=== PATIENT | male | born 1950 | race Caucasian/White ===

== ENCOUNTER 2016-06-23 17:27 | Emergency (ER) | END 2016-06-23 19:00 | disposition home or self-care (01) | DX: N18.6 End stage renal disease (principal); R40.2252 Coma scale, best verbal response, oriented, at arrival to emergency department; I12.0 Hypertensive chronic kidney disease with stage 5 chronic kidney disease or end stage renal disease; R40.2362 Coma scale, best motor response, obeys commands, at arrival to emergency department; R40.2142 Coma scale, eyes open, spontaneous, at arrival to emergency department; Y82.8 Other medical devices associated with adverse incidents; Z79.82 Long term (current) use of aspirin; Z99.2 Dependence on renal dialysis; Z87.891 Personal history of nicotine dependence ==

== ENCOUNTER 2017-11-13 13:26 | Emergency (ER) | END 2017-11-13 14:29 | disposition home or self-care (01) ==

== ENCOUNTER 2018-08-23 09:40 | Inpatient (IN) | payer MEDICARE, OTHER ==
[~2018-08-23] VITALS: Ht 160 cm; Wt 80.3 kg
[2018-08-23] VITALS (20 sets, daily range): BP systolic 100–159; BP diastolic 48–77; PULSE 72–89; RESP 18–20; Ht 160 cm; Wt 80.3 kg
[~2018-08-23 09:40] MED LIST: AMLO-147 PO; ASPI325T32 PO; ATEN-51 PO; BACLOFEN PO; CALC667T PO; CARV25TA79 PO; CLOP75TA27 PO; FAMO-96 PO; FEBU80TA PO; FERR324T6 PO; ISOSORBIDE PO; LOSA50TA14 PO; SIMV20TA2 PO; TRAM50TA2 PO
--- NOTE | 2018-08-23 09:49 | ERD ---
ER Documentation Chief Complaint Chief Complaint SOB HPI 67-year-old male history of hypertension, hyperlipidemia, coronary artery disease and end-stage renal disease on dialysis M/W/F presents the ED by rescue ambulance for evaluation of shortness of breath. Patient awoke this morning with severe shortness of breath and can go to dialysis. Denies chest pain, palpitations or leg swelling. Denies abdominal pain, nausea or vomiting. Kin es headache, focal weakness or numbness. No neck or back pain. Nonproductive cough but no URI symptoms, fevers or chills. ROS All systems reviewed and are negative except as per history of present illness. Medications Home Meds Active Scripts Aspirin* (Aspirin* EC) 81 Mg Tablet.dr, 81 MG PO DAILY, #30 TAB Prov:CHRISTEN CLARK V. [employer] BLACK[employer]ITH 08/26/18 Carvedilol* (Carvedilol*) 12.5 Mg Tablet, 25 MG PO BID, #60 TAB Prov:CHRISTEN CLARK V. [employer] BLACKSMITH 08/26/18 Clopidogrel Bisulfate (Clopidogrel) 75 Mg Tablet, 75 MG PO DAILY, #30 TAB Prov:CHRISTEN CLARK V. [employer] BLACKSMITH 08/26/18 Reported Medications Atorvastatin* (Atorvastatin*) 80 Mg Tablet, 80 MG PO QHS, #30 TAB 08/23/18 Losartan Potassium* (Losartan Potassium*) 50 Mg Tablet, 50 MG PO DAILY, TAB 08/23/18 Cholecalciferol (Vitamin D3) 5,000 Unit Tablet, 5000 UNIT PO DAILY, TAB 08/23/18 Nifedipine* (Nifedipine ER*) 30 Mg Tablet.sa, 30 MG PO DAILY, TAB.SA 08/23/18 Bumetanide* (Bumetanide*) 1 Mg Tablet, 1 MG PO DAILY, TAB 08/23/18 Albuterol Sulfate* (Ventolin HFA*) 18 Gm Hfa.aer.ad, 2 PUFF INHALATION Q4H, #1 INHALER 08/23/18 Discontinued Reported Medications Minoxidil* (Lonitin*) 2.5 Mg Tab, 2.5 MG PO DAILY, TAB 08/23/18 Furosemide* (Furosemide*) 40 Mg Tablet, 40 MG PO DAILY, TAB 08/23/18 Carvedilol* (Carvedilol*) 12.5 Mg Tablet, 12.5 MG PO BID, #60 TAB 08/23/18 Ciprofloxacin Hcl* (Ciprofloxacin Hcl*) 500 Mg Tablet, 500 MG PO DAILY, #14 TAB STARTED ON 08-18-18 FOR 14 DAYS 08/23/18 Allergies Allergies: Coded Allergies: No Known Allergies (Verified Allergy, Unknown, 08/23/18) PMhx/Soc History of Surgery: Yes (PERMACATH PLACEMENT; fistula placement (not used)) Anesthesia Reaction: No Hx Neurological Disorder: No Hx Respiratory Disorders: No Hx Cardiac Disorders: Yes (htn) Hx Psychiatric Problems: No Hx Miscellaneous Medical Probl: Yes (ESRD, DIALYSIS T,T,SAT) Hx Alcohol Use: Yes Hx Substance Use: No Hx Tobacco Use: No (used to smoke x 6 years ago) FmHx Hypertension but no coronary artery disease Physical Exam Vitals Temperature: 97.8. Pulse: 89. Respirations: 32. Blood pressure: 192/79. O2 saturation 80% on room air. Physical Exam Const: Severe distress, anxious. Head: Atraumatic Eyes: Normal Conjunctiva ENT: Normal External Ears, Nose and Mouth. Neck: Full range of motion. JVD. No meningismus. Resp: Breath sounds markedly diminished bilaterally with rales one half both lung arguelles and expiratory wheezing. Cardio: Tachycardic, regular rate and rhythm, no murmurs Abd: Soft, non tender, non distended. No rebound or guarding. Normal bowel sounds Skin: No petechiae or rashes Back: No midline or flank tenderness Ext: No cyanosis, or edema. AV shunt left upper extremity with palpable thrill. Neur: Awake and alert. No facial droop. No focal deficit observed. Psych: Anxious but not depressed. Results 24 hrs Laboratory Tests Test 08/23/18 09:50 White Blood Count 19.6 10^3/ul Red Blood Count 3.27 10^6/ul Hemoglobin 9.9 g/dl Hematocrit 31.5 % Mean Corpuscular Volume 96.3 fl Mean Corpuscular Hemoglobin 30.3 pg Mean Corpuscular Hemoglobin Concent 31.4 g/dl Red Cell Distribution Width 14.3 % Platelet Count 347 10^3/UL Mean Platelet Volume 11.2 fl Immature Granulocytes % 0.800 % Neutrophils % 82.6 % Lymphocytes % 14.1 % Monocytes % 2.1 % Eosinophils % 0.2 % Basophils % 0.2 % Nucleated Red Blood Cells % 0.0 /100WBC Immature Granulocytes # 0.150 10^3/ul Neutrophils # 16.2 10^3/ul Lymphocytes # 2.8 10^3/ul Monocytes # 0.4 10^3/ul Eosinophils # 0.0 10^3/ul Basophils # 0.0 10^3/ul Nucleated Red Blood Cells # 0.0 10^3/ul Sodium Level 138 mmol/L Potassium Level 5.4 mmol/L Chloride Level 98 mmol/L Carbon Dioxide Level 20 mmol/L Anion Gap 20 Blood Urea Nitrogen 62 mg/dl Creatinine 10.22 mg/dl Est Glomerular Filtrat Rate mL/min 5 mL/min Glucose Level 321 mg/dl Calcium Level 8.9 mg/dl Total Bilirubin 0.3 mg/dl Direct Bilirubin 0.00 mg/dl Indirect Bilirubin 0.3 mg/dl Aspartate Amino Transf (AST/SGOT) 99 IU/L Alanine Aminotransferase (ALT/SGPT) 58 IU/L Alkaline Phosphatase 154 IU/L Troponin I 0.311 ng/ml B-Type Natriuretic Peptide 11145 PG/ML Total Protein 8.3 g/dl Albumin 4.3 g/dl Globulin 4.00 g/dl Albumin/Globulin Ratio 1.07 Current Medications Medications Dose Sig/Chuck Start Time Status Last (Trade) Ordered Route PRN Stop Time Admin Dose Reason Admin Albuterol 15 mg ONCE STAT 08/23/18 DC 08/23/18 (Proventil INH 09:50 09:59 0.5% (Neb)) 08/23/18 09:53 250 ml @ ONCE STAT 08/23/18 DC 08/23/18 Nitroglycerin 12 mls/hr IV 09:50 10:01 / Dextrose 08/24/18 06:39 Enalaprilat 1.25 mg ONCE STAT 08/23/18 DC (Vasotec Iv) IV 09:50 08/23/18 09:53 Aspirin 325 mg ONCE ONCE 08/23/18 DC 08/23/18 (Aspirin) PO 11:00 11:00 08/23/18 11:01 Ondansetron 4 mg ER BRIDGE 08/23/18 DC HCl (Zofran PRN IV 12:00 Inj) NAUSEA/VOMITI 08/23/18 15:06 NG 650 mg ER BRIDGE 08/23/18 DC Acetaminophen PRN PO 12:00 (Tylenol .MILD PAIN 08/23/18 15:06 Tab) 1-3 OR TEMP IV Flush 3 ml PER 08/23/18 DC (NS 3 ml) PROTOCOL IV 15:30 08/26/18 16:29 Ondansetron 4 mg Q6H PRN 08/23/18 DC HCl (Zofran IV 15:30 Inj) NAUSEA/VOMITI 08/26/18 16:29 NG 650 mg Q6H PRN 08/23/18 DC Acetaminophen PO .PAIN 1-3 15:30 (Tylenol OR TEMP 08/24/18 10:40 Tab) 650 mg Q6H PRN 08/23/18 DC Acetaminophen MO .PAIN 1-3 15:30 (Tylenol OR TEMP 08/26/18 16:29 Supp) Discontinue ONCE ONCE 08/23/18 DC Miscellaneous current oral XX 15:30 sulfonylur... 08/24/18 10:39 Information (* Miscellaneous Pharmacy Order) ONCE ONCE 08/23/18 DC Miscellaneous HYPOGLYCEMIA XX 15:30 PROTOCOL 08/24/18 10:39 Information w... (* Miscellaneous Pharmacy Order) Discontinue ONCE ONCE 08/23/18 DC Miscellaneous all previ... XX 15:30 08/24/18 10:39 Information (* Miscellaneous Pharmacy Order) Ceftriaxone 50 ml @ Q24H IVPB 08/23/18 DC 08/25/18 Sodium 100 mls/hr 15:30 16:20 08/26/18 16:29 1 ea NOTE XX 08/23/18 DC Miscellaneous 15:30 Information 08/26/18 16:29 Glucose 15 gm Q15M PRN 08/23/18 DC (Glutose) PO DECREASED 15:30 GLUCOSE 08/26/18 16:29 Glucose 22.5 gm Q15M PRN 08/23/18 DC (Glutose) PO DECREASED 15:30 GLUCOSE 08/26/18 16:29 Dextrose 25 ml Q15M PRN 08/23/18 DC (D50w IV DECREASED 15:30 Syringe) GLUCOSE 08/26/18 16:29 Dextrose 50 ml Q15M PRN 08/23/18 DC (D50w IV DECREASED 15:30 Syringe) GLUCOSE 08/26/18 16:29 Glucagon 1 mg Q15M PRN 08/23/18 DC (Glucagen) IM DECREASED 15:30 GLUCOSE 08/26/18 16:29 Glucose 15 gm Q15M PRN 08/23/18 DC (Glutose) BUCCAL 15:30 DECREASED 08/26/18 16:29 GLUCOSE Procedures/MDM DOCUMENTS REVIEWED: ED nurse, prior records EKG: Time: 09:51. Sinus rhythm. Ventricular rate 89. Normal MO and QRS. LVH. No ectopy. Inferior and lateral ST depressions but no acute ST elevation. ECG is unchanged from 11/13/2017. My Interpretation IMAGING: PROCEDURE: XR Chest. CLINICAL INDICATION: Shortness of breath TECHNIQUE: Frontal chest x-ray was obtained. COMPARISON: Chest x-ray June 23, 2016 FINDINGS: Noted is a left IJ Perma-Cath. There is cardiomegaly. Calcified plaque is seen in the aorta. No hilar masses seen. Bilateral lower lobe alveolar infiltrates are present with pulmonary vascular congestion. There are bilateral pleural effusions. No pneumothorax is seen. IMPRESSION: Congestive heart failure .Geovany Orellana MD, MD Date Time Electronically viewed and signed by .Geovany Orellana MD, MD on 08/23/2018 10:28 CRITICAL CARE TIME: Due to the high probability of imminent clinically significant respiratory, hemodynamic and cardiovascular deterioration, this patient with acute dyspnea secondary to acute hypoxic respiratory failure, volume overload and congestive heart failure complicated by NSTEMI required multiple, frequent reevaluations of vital signs and response to therapy. Responded well to aggressive medical therapy and noninvasive positive pressure ventilation hence intubation mechanical ventilation was not needed. Additional critical care time was spent in obtaining supplemental history from EMS, extensive review of prior medical records, interpretation of relevant clinical data including labs, imaging studies and as well as arranging for admission and ongoing care with the admitting physician. TOTAL CRITICAL CARE TIME: 40 minutes not including other separately reportable procedures. MEDICAL DECISION MAKIN-year-old male history of hypertension, hyperlipidemia, coronary artery disease and end-stage renal disease on dialysis M/W/F presents the ED by rescue ambulance for evaluation of shortness of breath. CBC reveals anemia consistent with prior results and leukocytosis but no thrombocytopenia. Chemistry significant for elevated BUN/creatinine consistent with patient's history of chronic kidney disease with mild hyperkalemia and hyperglycemia. Troponin is elevated to 0.311. BNP is markedly elevated at 29,600. Chest x-ray reveals cardiomegaly with bilateral infiltrates and pulmonary vascular congestion consistent with congestive heart failure. EKG reveals no dysrhythmia or acute ST elevation. Patient presents with acute hypoxic respiratory failure secondary to congestive heart failure and volume overload. Treated aggressively with noninvasive positive pressure ventilation, preload and afterload reduction with excellent response. Mild hyperkalemia treated with nebulized beta agonists the patient will require emergent dialysis which is being arranged. No chest pain but significantly elevated troponin consistent with non-ST elevation acute coronary syndrome. Pulmonary embolism is unlikely. Aspirin was given and urgent cardiology consultation is pending. Admit to telemetry for further evaluation and management. PATIENT CARE TRANSITIONED: Time: 11:46, Dr. Banerjee. Counseled patient and family regarding diagnosis, diagnostic results and plan for admission. Departure Diagnosis: Primary Impression: Acute respiratory failure Respiratory failure complication: hypoxia Qualified Codes: J96.01 - Acute respiratory failure with hypoxia Additional Impressions: Acute CHF Heart failure type: unspecified Qualified Codes: I50.9 - Heart failure, unspecified End stage renal disease on dialysis NSTEMI (non-ST elevated myocardial infarction) Condition: Critical AJITH HOLLIDAY MD Aug 23, 2018 09:49
[2018-08-23] MEDS ORDERED: ALBUTEROL 0.5% (NEB) 2.5 MG/0.5 ML AMP INH STA (09:50)
[2018-08-23] MEDS ORDERED: NITROGLYCERIN 50 MG/D5W (PMX) 250 ML IV STA (09:50)
[2018-08-23] MEDS ORDERED: ENALAPRILAT 1.25 MG INJ IV STA (09:50)
[2018-08-23] MEDS ORDERED: ASPIRIN 325 MG TAB PO ONE (11:00)
[2018-08-23] MEDS ORDERED: ACETAMINOPHEN 325 MG TAB PO PRN ×2 (12:00→15:30)
[2018-08-23] MEDS ORDERED: ONDANSETRON 4 MG INJ IV PRN ×2 (12:00→15:30)
[2018-08-23] MEDS ORDERED: CIPR500T4 PO (13:39)
[2018-08-23] MEDS ORDERED: ALBU18HF INHALATION (13:40)
[2018-08-23] MEDS ORDERED: BUME1TAB PO (13:40)
[2018-08-23] MEDS ORDERED: NIFE30TA23 PO (13:41)
[2018-08-23] MEDS ORDERED: CHOL500010 PO (13:42)
[2018-08-23] MEDS ORDERED: FURO40TA4 PO (13:43)
[2018-08-23] MEDS ORDERED: CARV12.579 PO (13:43)
[2018-08-23] MEDS ORDERED: MINO2.5T16 PO (13:45)
[2018-08-23] MEDS ORDERED: LOSA50TA14 PO (13:45)
[2018-08-23] MEDS ORDERED: ATOR-2 PO (13:46)
--- NOTE | 2018-08-23 14:29 | CONS ---
DATE OF ADMISSION: 08/23/2018 DATE OF CONSULTATION: 08/23/2018 TYPE OF CONSULTATION: Renal REASON FOR CONSULTATION: End-stage renal disease. Thank you Marisol Ramires for this consultation. HISTORY OF PRESENT ILLNESS: This 67-year-old man came into the Emergency Room this morning because o f shortness of breath. He does say that he had some chest pressure or pain which has resolved. He i s less short of breath at this time. The patient does have end-stage renal disease and is on mainten ance hemodialysis Thursday, Thursday, Thursday in the [facility] Dialysis unit. He is under the c are of Dr. Seay. He did have an elevated troponin level and may have an NSTEMI. He has a left-side d internal jugular Perm-A-Cath. PAST MEDICAL HISTORY: 1. Remarkable for coronary artery disease. 2. End-stage renal disease on maintenance hemodialysis. Also hypertension, anemia of chronic kidney disease, gout, gastroesophageal reflux disease. 3. Hyperlipidemia. He did have a left upper extremity AV fistula which I am assuming is not working . SOCIAL HISTORY: He does not smoke, does not drink alcohol, does not use illicit drugs. MEDICATIONS: Includes the followin. Tramadol 50 mg every 6 hours p.r.n. pain. 2. Amlodipine 10 mg a day. 3. Clopidogrel 75 mg a day. 4. Calcium acetate 667 mg 3 times a day with meals. 5. Atenolol 25 mg a day. 6. Simvastatin 20 mg a day. 7. Aspirin 325 mg a day. 8. Ferrous sulfate. 9. Isosorbide. 10. Uloric 80 mg a day. 11. Losartan 50 mg a day. 12. Baclofen 10 mg twice a day. 13. Carvedilol 3.125 mg twice a day. 14. Famotidine 20 mg a day. ALLERGIES: He has no known allergies. PHYSICAL EXAMINATION: GENERAL: At this time reveals a well-developed man in no apparent distress. He is awake and alert. He seems comfortable. VITAL SIGNS: Pulse is 62, respirations 17, blood pressure 125/60, O2 saturation of 100%. He was ini tially on BiPAP, but is now off. HEENT: Head normocephalic. Eyes: Extraocular muscles intact. NOSE AND MOUTH: Normal. NECK: Supple. No neck vein distention. LUNGS: He has bibasilar rales. HEART: Regular rhythm. No murmurs, gallops or rubs. ABDOMEN: Soft, nontender, no masses or megaly. EXTREMITIES: He has bilateral trace to +1 pretibial edema. NEUROLOGIC: Grossly intact. He has a left internal jugular Perm-A-Cath in place. IMPRESSION: 1. End-stage renal disease on maintenance hemodialysis. The patient is due for hemodialysis today. I will order dialysis. 2. Congestive heart failure. 3. Chest pain, with an elevated troponin, possible non-ST elevation myocardial infarction. 4. History of hypertension. 5. Anemia of chronic kidney disease. 6. Gout. PLAN: 1. Order hemodialysis as soon as the patient is admitted to the floor. 2. Continue routine medications. 3. Check labs in the morning. 4. I will follow the patient along with you. Dictated By: CHANDLER LIMA MD, ND/GE Conf#: [id number] DID#: [id number]
--- NOTE | 2018-08-23 14:57 | HP ---
Date/Time of Note Date/Time of Note DATE: 08/23/18 TIME: 14:45 Assessment/Plan VTE Prophylaxis SCD applied (from Nsg): Yes Pharmacological prophylaxis: heparin Lines/Catheters IV Catheter Type (from Nrsg): Saline Lock Assessment/Plan Hospital Course SUBJECTIVE: Seen and evaluated patient in ER room 16, currently on BiPAP having moderate respiratory distress. OBJECTIVE: Vital signs-see below PHYSICAL EXAM: Constitutional: Martiniquais-speaking male, on BiPAP with moderate respiratory distress. Psych: nl mood/affect, no complaints Head: atraumatic, normocephalic Eyes: nl conjunctiva, nl sclera ENMT: mucosa pink and moist, nl external ears & nose Neck: non-tender, supple Respiratory: Crackles bilaterally. increased work of breathing. Cardiovascular: nl pulses, regular rate and rhythm Gastrointestinal: non-tender, soft, bowel sounds active in all 4 quadrants. Musculoskeletal/extremities: nl extremities to inspection, motor strength equal bilaterally, no focal deficit. Normal pulses,no cyanosis, no edema. Neurological: Drowsy/on BiPAP. Alert oriented 3,nl speech, nl strength Skin: nl turgor ASSESSMENT/PLAN: 67-year-old male with ESRD, on hemodialysis Thursday, Thursday, Thursday, dyslipidemia, hypertension, vitamin D deficiency, presented to the emergency room with worsening shortness of breath found to have NSTEMI/Resp fx requiring BiPAP 1. Acute hypoxemic respiratory failure secondary to volume overload/CHF exacerbation/NSTEMI -BiPAP, bronchodilators,UF for volume removal -Blood gas analysis -Pulmonary consult 2.Congestive heart failure exacerbation 2/2 volume overload 2/2 ESRD -We will call supervisor abattoir for immediate ultrafiltration/HD -Resume BB/ARB -Cardiology consult and 2D echocardiogram. 3.NSTEMI -Cardiology consult -ASA/Statin -Trend trops,EKG, likely need LHC 4. ESRD, HD MWF -Access: Left IJ permacath-c/d/i -We will call nephrology to manage. -Monitor renal function 5. Leukocytosis, reactive versus possible superimposed early developing pneumonia. -We will empirically treat with ceftriaxone ~48 hrs -cultures, influenza swabs to follow. 6. Hyperglycemia, stress related versus new onset diabetes. -Obtain A1c. Will start patient on Accu-Cheks/sliding scale insulin and Lantus insulin. 7.Hypertension -Not controlled well on arrival=> this post 1 dose IV Vasotec, currently BP stable. -Resume home medications and hopefully by hemodialysis his blood pressure will be more controlled. If not we will add additional agents. 8.Vitamin D deficiency. -cont supplementation 9. Hyperkalemia with ESRD -management per nephrology. Hopefully with hemodialysis, this will be corrected. 10. Anemia of ESRD -Stable H&H. Epogen w/ hemodialysis per nephrology if indicated. VT prophylaxis: Heparin PUD prophylaxis: Protonix CODE STATUS: Full code Diet: N.p.o. until respiratory status is improved. Rest of the management depend on hospital course. Approximately 60 m spent on this history and physical. Patient is seen in collaboration with Dr. Suarez. Result Diagram: 08/23/18 0950 08/23/18 0950 Results 24hrs Laboratory Tests Test 08/23/18 09:50 White Blood Count 19.6 #H Red Blood Count 3.27 L Hemoglobin 9.9 L Hematocrit 31.5 L Mean Corpuscular Volume 96.3 Mean Corpuscular Hemoglobin 30.3 Mean Corpuscular Hemoglobin Concent 31.4 L Red Cell Distribution Width 14.3 Platelet Count 347 Mean Platelet Volume 11.2 #H Immature Granulocytes % 0.800 H Neutrophils % 82.6 H Lymphocytes % 14.1 L Monocytes % 2.1 Eosinophils % 0.2 Basophils % 0.2 Nucleated Red Blood Cells % 0.0 Immature Granulocytes # 0.150 H Neutrophils # 16.2 H Lymphocytes # 2.8 Monocytes # 0.4 Eosinophils # 0.0 Basophils # 0.0 Nucleated Red Blood Cells # 0.0 Sodium Level 138 Potassium Level 5.4 H Chloride Level 98 Carbon Dioxide Level 20 L Anion Gap 20 H Blood Urea Nitrogen 62 H Creatinine 10.22 H Est Glomerular Filtrat Rate mL/min 5 L Glucose Level 321 H Calcium Level 8.9 Total Bilirubin 0.3 Direct Bilirubin 0.00 Indirect Bilirubin 0.3 Aspartate Amino Transf (AST/SGOT) 99 H Alanine Aminotransferase (ALT/SGPT) 58 Alkaline Phosphatase 154 H Troponin I 0.311 *H Total Protein 8.3 H Albumin 4.3 Globulin 4.00 H Albumin/Globulin Ratio 1.07 HPI/ROS Admit Date/Time Admit Date/Time Hx of Present Illness This is a 67-year-old male with ESRD, on hemodialysis Thursday, Thursday, Thursday, dyslipidemia, hypertension, vitamin D deficiency, presented to the emergency room with worsening shortness of breath and chest discomfort started yesterday. Patient was supposed to get his hemodialysis today and was unable to make it because of breathing difficulties. In the emergency room, patient was noted with elevated white count 19,600, hemoglobin 9.9, hematocrit 31.5, potassium 5.4, BUN 62, creatinine 10.22, and glucose 321. Patient also had elevated troponin 0 0.311. EKG negative for acute ST or T wave changes. Vital signs temperature 97.8, pulse rate 89, respiratory rate 32, blood pressure 192/79 and oxygen saturation 80%. Patient required BiPAP in the emergency room. At my encounter with the patient, he is on BiPAP and is lethargic. However, patient was able to answer my questions appropriately. He denied palpitation, nausea, vomiting, abdominal pain, swelling, dizziness, loss of consciousness, numbness, tingling, diaphoresis or other constitutional symptoms. ROS A 12 point review of system was assessed and is negative other than what is mentioned in the HPI. PMH/Family/Social Past Medical History See HPI Medications Current Medications Nitroglycerin/ Dextrose 250 ml @ 12 mls/hr ONCE STAT IV Last administered on 08/23/18at 10:01; Admin Dose 30 MLS/HR; Start 08/23/18 at 09:50; Stop 08/24/18 at 06:39 Ondansetron HCl (Zofran Inj) 4 mg ER BRIDGE PRN IV NAUSEA/VOMITING; Start 08/23/18 at 12:00; Stop 08/24/18 at 11:59 Acetaminophen (Tylenol Tab) 650 mg ER BRIDGE PRN PO .MILD PAIN 1-3 OR TEMP; Start 08/23/18 at 12:00; Stop 08/24/18 at 11:59 Coded Allergies: No Known Allergies (Verified Allergy, Unknown, 08/23/18) Past Surgical History Noncontributory Family History Significant Family History: hypertension, renal disease, vascular disease Social History Former smoker who quit 6 years ago. Currently denies history of alcohol, smoking or illicit drug use. Exam/Review of Systems Vital Signs Vitals Vital Signs Date Temp Pulse Resp B/P (MAP) Pulse Ox O2 O2 Flow FiO2 Time Delivery Rate 08/23/18 99.0 78 17 112/56 100 Room Air 13:50 (74) 08/23/18 40 11:13 08/23/18 2.0 10:01 CHRISTEN CLARK NP Aug 23, 2018 14:55
[2018-08-23] MEDS: CEFTRIAXONE 1 GM/50 ML (PMX) 50 ML IVPB SCH (15:20)
[2018-08-23] MEDS ORDERED: GLUCOSE GEL 15 GRAM TUBE BUCCAL PRN (15:30)
[2018-08-23] MEDS ORDERED: ACETAMINOPHEN 650 MG SUPP PR PRN (15:30)
[2018-08-23] MEDS ORDERED: DEXTROSE 50% 50 ML SYRINGE IV PRN ×2 (15:30)
[2018-08-23] MEDS ORDERED: NACL 0.9% 3 ML SYG IV SCH (15:30)
[2018-08-23] MEDS ORDERED: GLUCOSE GEL 15 GRAM TUBE PO PRN ×2 (15:30)
[2018-08-23] MEDS ORDERED: GLUCAGON 1 MG INJ IM PRN (15:30)
--- NOTE | 2018-08-23 17:04 | RADRPT ---
Echocardiogram Report Patient Name: JORGE RUIZPatient ID: [id number] : 1950 (67y 9m)Study Date: 08/23/2018 3:13:22 PM Gender: MAccession #: [id number] Tech: Adam Menendez ALONSO Location: [facility] Ref.Physician: CHRISTEN CLARK Height(Cm): BSA: Weight(Kg): Quality: AdequateAccount #: Procedures: Echocardiographic Report: Transthoracic echocardiogram with complete 2D, M-Mode, and doppler examination. Indications: Congestive Heart Failure. Measurements: 2D/M Mode Doppler Measurement Value Normal Range Measurement Value Normal Range LVIDd 2D 4.2 [ 4.2 - 5.8 ] cm AV Peak Julian 1.7 [ 100.0 - 170.0 ] cm/sec LVIDs 2D 2.9 [ 2.5 - 4.0 ] cm AV Peak PG 11.0 [ 2.0 - 9.0 ] mmHg LVPWd 2D 1.4 [ 0.6 - 1.0 ] cm LVOT Peak Julian 0.8 [ 70.0 - 110.0 ] cm/sec IVSd 2D 1.5 [ 0.6 - 1.0 ] cm LVOT Peak PG 2.0 [ 2.0 - 6.0 ] mmHg AoR Diam 2D 2.9 [ 2.6 - 3.4 ] cm MV E Peak Julian 1.0 [ 60.0 - 130.0 ] cm/sec EDV 2D 79.0 [ 62.0 - 150.0 ] ml MV A Peak Julian 1.3 [ 100.0 - 120.0 ] cm/sec ESV 2D 31.1 [ 21.0 - 61.0 ] ml MV E/A 0.7 [ 0.8 - 1.5 ] ratio EF 2D 60.6 [ 52.0 - 72.0 ] percent MV Decel Time 232 [ 104 - 258 ] msec LA Dimen 2D 5.1 [ 3.0 - 4.0 ] cm Lat E` Julian 0.0 [ 10.0 - 15.0 ] cm/sec Lateral E/E` 22.2 [ 1.0 - 2.0 ] ratio MV E/A 0.7 [ 0.8 - 1.5 ] ratio TR Peak Julian 2.9 [ 100.0 - 280.0 ] cm/sec TR Peak PG 33.0 mmHg RVSP 43.0 [ 10.0 - 36.0 ] mmHg RA Pressure 10.0 mmHg Findings: Left Ventricle: Normal left ventricular systolic function. Normal left ventricular cavity size. Moderate concentric left ventricular hypertrophy. Ejection fraction is visually estimated at 65 %. Tissue Doppler/Mitral Doppler indices are consistent with impaired relaxation (Stage I diastolic dysfunction). Right Ventricle: Normal right ventricular size. Normal right ventricular systolic function. Left Atrium: There is moderate enlargement of left atrium. Right Atrium: The right atrium is normal in size. Mitral Valve: Mild mitral leaflet calcification. Moderate mitral annular calcification. Trace mitral regurgitation. Aortic Valve: Normal appearance of the aortic valve. No significant aortic stenosis or insufficiency. Tricuspid Valve: Normal appearance of the tricuspid valve. Estimated peak PA systolic pressure 43 mmHg. There is trace tricuspid regurgitation. Pulmonic Valve: Normal pulmonic valve appearance. Pericardium: Normal pericardium with no significant pericardial effusion. Aorta: Normal aortic root. IVC: Normal size and normal respiratory collapse consistent with normal right atrial pressure. Conclusions: Normal left ventricular systolic function. Normal left ventricular cavity size. Moderate concentric left ventricular hypertrophy. Ejection fraction is visually estimated at 65 %. Tissue Doppler/Mitral Doppler indices are consistent with impaired relaxation (Stage I diastolic dysfunction). There is moderate enlargement of left atrium. Mild mitral leaflet calcification. Moderate mitral annular calcification. Trace mitral regurgitation. Normal appearance of the aortic valve. No significant aortic stenosis or insufficiency. Normal appearance of the tricuspid valve. Estimated peak PA systolic pressure 43 mmHg. There is trace tricuspid regurgitation. Electronically Signed By: Alex Beaver 2018-08-23 17:03:50 PDT
[2018-08-23] MEDS: INSULIN ASPART [NOVOLOG] 3 ML PEN SC SCH ×2 (17:30→21:52)
--- NOTE | 2018-08-23 17:42 | CONS ---
Assessment/Plan Assessment/Plan Hospital Course (Demo Recall) 1. Mildly abnormal troponin and chest pain consistent with NSTEMI 2. Fluid overload/congestive heart failure secondary to fluid overload and diastolic heart failure 3. Respiratory failure secondary to above 4. Hypertension with hypertensive heart disease 5. Renal failure on dialysis 6. Dyslipidemia Recommendations: CONT BP control We will try to get the old records Continue the beta-liu increase as needed/tolerated Hemodialysis has been arranged by renal and is being done now ASA daily statin [facility] tony PCI tomorrow at 7:30 AM . Thank you for this referral. We will continue to follow along with you SOUTH AMAYA MD [facility] Consultation Date/Type/Reason Admit Date/Time Date of Consultation: Aug 23, 2018 Type of Consult Cardiology Reason for Consultation Abnormal troponin Requesting Provider: CHRISTEN CLARK NP Date/Time of Note DATE: 08/23/18 TIME: 17:33 Hx of Present Illness Interventional cardiology consultation note Chief complaint: Shortness of breath Reason for consult: Abnormal troponin History of present illness: Thank you for this referral. History was obtained from the patient who is a very poor history from review of the chart discussion physician and staff This is a 67-year-old man with history of renal failure on dialysis who came into the Emergency Room this morning because of shortness of breath. He does say that he had some chest pressure or pain anteriorly which was mild and short time and has resolved. He is less short of breath at this time. The patient does have end-stage renal disease and is on maintenance hemodialysis Thursday, Thursday, Thursday. He did have an elevated troponin level which was kindly asked to evaluate and treat. Since that he has had shortness of breath for a month now. Has been getting worse this morning. He denies any exertional chest pain to me. Is able to walk with no chest pain or pressure. PAST MEDICAL HISTORY: 1. Remarkable for possible history of coronary artery disease. According to the patient he had an angiogram done outside facility about a year and a half ago with sure was done to check his "valves" unaware of any blocked arteries 2. End-stage renal disease on maintenance hemodialysis. 3. hypertension, 4. anemia of chronic kidney disease, 5. gout, 6. gastroesophageal reflux disease. 7. Hyperlipidemia. Past surgical history: As above plus He did have a left upper extremity AV fistula SOCIAL HISTORY: He does not smoke, does not drink alcohol, does not use illicit drugs. MEDICATIONS: REVIEWED. ALLERGIES: He has no known allergies. Family history: No reported history of early coronary artery disease Social history: Has quit smoking many years ago Review of system: Patient denies all others except for above-mentioned Past Medical History Home Meds Reported Medications Atorvastatin* (Atorvastatin*) 80 Mg Tablet, 80 MG PO QHS, #30 TAB 08/23/18 Losartan Potassium* (Losartan Potassium*) 50 Mg Tablet, 50 MG PO DAILY, TAB 08/23/18 Minoxidil* (Lonitin*) 2.5 Mg Tab, 2.5 MG PO DAILY, TAB 08/23/18 Furosemide* (Furosemide*) 40 Mg Tablet, 40 MG PO DAILY, TAB 08/23/18 Carvedilol* (Carvedilol*) 12.5 Mg Tablet, 12.5 MG PO BID, #60 TAB 08/23/18 Cholecalciferol (Vitamin D3) 5,000 Unit Tablet, 5000 UNIT PO DAILY, TAB 08/23/18 Nifedipine* (Nifedipine ER*) 30 Mg Tablet.sa, 30 MG PO DAILY, TAB.SA 08/23/18 Bumetanide* (Bumetanide*) 1 Mg Tablet, 1 MG PO DAILY, TAB 08/23/18 Albuterol Sulfate* (Ventolin HFA*) 18 Gm Hfa.aer.ad, 2 PUFF INHALATION Q4H, #1 INHALER 08/23/18 Ciprofloxacin Hcl* (Ciprofloxacin Hcl*) 500 Mg Tablet, 500 MG PO DAILY, #14 TAB STARTED ON 08-18-18 FOR 14 DAYS 08/23/18 Discontinued Reported Medications Tramadol HCl (Tramadol HCl) 50 Mg Tab, 50 MG PO Q6H PRN for PAIN, TAB 01/13/14 Amlodipine Besylate* (Amlodipine Besylate*) 10 Mg Tablet, 10 MG PO DAILY, TAB 01/13/14 Clopidogrel Bisulfate (Clopidogrel) 75 Mg Tablet, 75 MG PO DAILY, TAB 01/13/14 Calcium Acetate (Calcium Acetate) 667 Mg Tablet, 667 MG PO DAILY, TAB 01/13/14 Atenolol* (Atenolol*) 25 Mg Tablet, 25 MG PO DAILY, TAB 01/13/14 Simvastatin (Simvastatin) 20 Mg Tablet, 20 MG PO HS, TAB 01/13/14 Aspirin (Aspirin) 325 Mg Tablet.dr, 325 MG PO 01/13/14 Ferrous Sulfate (Ferrous Sulfate) 324 Mg Tabsr, 324 MG PO BID 01/13/14 [Isosorbide] No Conflict Check, 10 MG PO TID 01/13/14 Febuxostat* (Uloric*) 80 Mg Tablet, 80 MG PO DAILY, TAB 01/13/14 Losartan Potassium* (Losartan Potassium*) 50 Mg Tablet, 50 MG PO DAILY, TAB 01/13/14 [Baclofen] No Conflict Check, 10 MG PO BID 01/13/14 Carvedilol* (Carvedilol*) 25 Mg Tablet, 3.125 MG PO DAILY 05/10/13 Famotidine* (Pepcid*) 20 Mg Tablet, 20 MG PO DAILY 05/10/13 Medications Current Medications Nitroglycerin/ Dextrose 250 ml @ 12 mls/hr ONCE STAT IV Last administered on 08/23/18at 10:01; Admin Dose 30 MLS/HR; Start 08/23/18 at 09:50; Stop 08/24/18 at 06:39 Atorvastatin Calcium (Lipitor) 80 mg QHS PO ; Start 08/23/18 at 21:00 Carvedilol (Coreg) 12.5 mg BID PO ; Start 08/23/18 at 21:00 Cholecalciferol (Vitamin D) 5,000 unit DAILY PO ; Start 08/24/18 at 09:00 Losartan Potassium (Cozaar) 50 mg DAILY PO ; Start 08/24/18 at 09:00 Minoxidil (Loniten) 2.5 mg DAILY PO ; Start 08/24/18 at 09:00 Nifedipine (Procardia Xl) 30 mg DAILY PO ; Start 08/24/18 at 09:00 IV Flush (NS 3 ml) 3 ml PER PROTOCOL IV ; Start 08/23/18 at 15:30 Ondansetron HCl (Zofran Inj) 4 mg Q6H PRN IV NAUSEA/VOMITING; Start 08/23/18 at 15:30 Acetaminophen (Tylenol Tab) 650 mg Q6H PRN PO .PAIN 1-3 OR TEMP; Start 08/23/18 at 15:30 Acetaminophen (Tylenol Supp) 650 mg Q6H PRN [place] .PAIN 1-3 OR TEMP; Start 08/23/18 at 15:30 Famotidine (Pepcid) 20 mg Q12 PO ; Start 08/23/18 at 21:00 Heparin Sodium (Porcine) (Heparin (5000 Units/1ml)) 5,000 unit Q12 SC ; Start 08/23/18 at 21:00 Diagnostic Test (Pha) (Accu-Chek) 1 ea 02 XX ; Start 08/24/18 at 02:00 Insulin Glargine (Lantus) 11 units DAILY@2000 SC ; Start 08/23/18 at 20:00 Insulin Aspart (Novolog Insulin Pen) NOVOLOG *MILD* ALGORI... Q4 SC ; Start 08/23/18 at 17:30 Ceftriaxone Sodium 50 ml @ 100 mls/hr Q24H IVPB Last administered on 08/23/18at 15:20; Admin Dose 100 MLS/HR; Start 08/23/18 at 15:30 Albuterol/ Ipratropium (Duoneb) 3 ml Q4H RESP THERAPY HHN ; Start 08/23/18 at 17:00 Miscellaneous Information 1 ea NOTE XX ; Start 08/23/18 at 15:30 Glucose (Glutose) 15 gm Q15M PRN PO DECREASED GLUCOSE; Start 08/23/18 at 15:30 Glucose (Glutose) 22.5 gm Q15M PRN PO DECREASED GLUCOSE; Start 08/23/18 at 15:30 Dextrose (D50w Syringe) 25 ml Q15M PRN IV DECREASED GLUCOSE; Start 08/23/18 at 15:30 Dextrose (D50w Syringe) 50 ml Q15M PRN IV DECREASED GLUCOSE; Start 08/23/18 at 15:30 Glucagon (Glucagen) 1 mg Q15M PRN IM DECREASED GLUCOSE; Start 08/23/18 at 15:30 Glucose (Glutose) 15 gm Q15M PRN BUCCAL DECREASED GLUCOSE; Start 08/23/18 at 15:30 Allergies: Coded Allergies: No Known Allergies (Verified Allergy, Unknown, 08/23/18) Social History Smoking Status: Former smoker Exam/Review of Systems Vital Signs Vitals Vital Signs Date Temp Pulse Resp B/P (MAP) Pulse Ox O2 O2 Flow FiO2 Time Delivery Rate 08/23/18 97.8 73 18 157/71 96 Nasal 4.0 16:14 (99) Cannula 08/23/18 40 11:13 Exam Exam General: no acute distress HEENT: NC/AT. pupils are equal. round. NECK: NO JVD. no stridor. CV: RRR. systolic murmur; no gallop or rubs. PULM: no wheezing + rhonchi at the base. GI: SOFT, NT, ND, no rebound or guarding Extremity: trace B/L LE edema. no clubbing. neuro: awake and alert, OX3. Psych: calm and pleasant rectal: deferred EKG shows normal sinus rhythm ST-T wave abnormalities inferolateral ischemia versus LVH and strain Echocardiogram was also personally reviewed which shows: cavity size. Moderate concentric left ventricular hypertrophy. Ejection fraction is visually estimated at 65 %. Tissue Doppler/Mitral Doppler indices are consistent with impaired relaxation (Stage I diastolic dysfunction). There is moderate enlargement of left atrium. Mild mitral leaflet calcification. Moderate mitral annular calcification. Trace mitral regurgitation. Normal appearance of the aortic valve. No significant aortic stenosis or insufficiency. Normal appearance of the tricuspid valve. Estimated peak PA systolic pressure 43 mmHg. There is trace tricuspid regurgitation. Labs Result Diagram: 08/23/18 0950 08/23/18 0950 Results 24hrs Laboratory Tests Test 08/23/18 09:50 White Blood Count 19.6 #H Red Blood Count 3.27 L Hemoglobin 9.9 L Hematocrit 31.5 L Mean Corpuscular Volume 96.3 Mean Corpuscular Hemoglobin 30.3 Mean Corpuscular Hemoglobin Concent 31.4 L Red Cell Distribution Width 14.3 Platelet Count 347 Mean Platelet Volume 11.2 #H Immature Granulocytes % 0.800 H Neutrophils % 82.6 H Lymphocytes % 14.1 L Monocytes % 2.1 Eosinophils % 0.2 Basophils % 0.2 Nucleated Red Blood Cells % 0.0 Immature Granulocytes # 0.150 H Neutrophils # 16.2 H Lymphocytes # 2.8 Monocytes # 0.4 Eosinophils # 0.0 Basophils # 0.0 Nucleated Red Blood Cells # 0.0 Sodium Level 138 Potassium Level 5.4 H Chloride Level 98 Carbon Dioxide Level 20 L Anion Gap 20 H Blood Urea Nitrogen 62 H Creatinine 10.22 H Est Glomerular Filtrat Rate mL/min 5 L Glucose Level 321 H Calcium Level 8.9 Total Bilirubin 0.3 Direct Bilirubin 0.00 Indirect Bilirubin 0.3 Aspartate Amino Transf (AST/SGOT) 99 H Alanine Aminotransferase (ALT/SGPT) 58 Alkaline Phosphatase 154 H Troponin I 0.311 *H B-Type Natriuretic Peptide 20118 H Total Protein 8.3 H Albumin 4.3 Globulin 4.00 H Albumin/Globulin Ratio 1.07 Medications Medications Current Medications Nitroglycerin/ Dextrose 250 ml @ 12 mls/hr ONCE STAT IV Last administered on 08/23/18at 10:01; Admin Dose 30 MLS/HR; Start 08/23/18 at 09:50; Stop 08/24/18 at 06:39 Atorvastatin Calcium (Lipitor) 80 mg QHS PO ; Start 08/23/18 at 21:00 Carvedilol (Coreg) 12.5 mg BID PO ; Start 08/23/18 at 21:00 Cholecalciferol (Vitamin D) 5,000 unit DAILY PO ; Start 08/24/18 at 09:00 Losartan Potassium (Cozaar) 50 mg DAILY PO ; Start 08/24/18 at 09:00 Minoxidil (Loniten) 2.5 mg DAILY PO ; Start 08/24/18 at 09:00 Nifedipine (Procardia Xl) 30 mg DAILY PO ; Start 08/24/18 at 09:00 IV Flush (NS 3 ml) 3 ml PER PROTOCOL IV ; Start 08/23/18 at 15:30 Ondansetron HCl (Zofran Inj) 4 mg Q6H PRN IV NAUSEA/VOMITING; Start 08/23/18 at 15:30 Acetaminophen (Tylenol Tab) 650 mg Q6H PRN PO .PAIN 1-3 OR TEMP; Start 08/23/18 at 15:30 Acetaminophen (Tylenol Supp) 650 mg Q6H PRN [place] .PAIN 1-3 OR TEMP; Start 08/23/18 at 15:30 Famotidine (Pepcid) 20 mg Q12 PO ; Start 08/23/18 at 21:00 Heparin Sodium (Porcine) (Heparin (5000 Units/1ml)) 5,000 unit Q12 SC ; Start 08/23/18 at 21:00 Diagnostic Test (Pha) (Accu-Chek) 1 ea 02 XX ; Start 08/24/18 at 02:00 Insulin Glargine (Lantus) 11 units DAILY@2000 SC ; Start 08/23/18 at 20:00 Insulin Aspart (Novolog Insulin Pen) NOVOLOG *MILD* ALGORI... Q4 SC ; Start 08/23/18 at 17:30 Ceftriaxone Sodium 50 ml @ 100 mls/hr Q24H IVPB Last administered on 08/23/18at 15:20; Admin Dose 100 MLS/HR; Start 08/23/18 at 15:30 Albuterol/ Ipratropium (Duoneb) 3 ml Q4H RESP THERAPY HHN ; Start 08/23/18 at 17:00 Miscellaneous Information 1 ea NOTE XX ; Start 08/23/18 at 15:30 Glucose (Glutose) 15 gm Q15M PRN PO DECREASED GLUCOSE; Start 08/23/18 at 15:30 Glucose (Glutose) 22.5 gm Q15M PRN PO DECREASED GLUCOSE; Start 08/23/18 at 15:30 Dextrose (D50w Syringe) 25 ml Q15M PRN IV DECREASED GLUCOSE; Start 08/23/18 at 15:30 Dextrose (D50w Syringe) 50 ml Q15M PRN IV DECREASED GLUCOSE; Start 08/23/18 at 15:30 Glucagon (Glucagen) 1 mg Q15M PRN IM DECREASED GLUCOSE; Start 08/23/18 at 15:30 Glucose (Glutose) 15 gm Q15M PRN BUCCAL DECREASED GLUCOSE; Start 08/23/18 at 15:30 SOUTH AMAYA MD Aug 23, 2018 17:42
[2018-08-23] MEDS ORDERED: INSULIN GLARGINE [LANTus] (100 UNITS/ML) SYG SC SCH (20:00)
[2018-08-23] MEDS: HEPARIN 1000 UNITS/ML 10 ML INJ CATHETER PRN (20:20)
[2018-08-23] MEDS ORDERED: HEPARIN 5,000 UNIT/1 ML VIAL SC SCH (21:00)
[2018-08-23] MEDS: ALBUTEROL/IPRATROPIUM (NEB) 3 ML AMP HHN SCH (21:00)
[2018-08-23] MEDS: ATORVASTATIN 80 MG TAB PO SCH (21:28)
[2018-08-23] MEDS: FAMOTIDINE 20 MG TAB PO SCH (21:28)
[2018-08-24] VITALS (61 sets, daily range): BP systolic 134–176; BP diastolic 54–111; PULSE 74–87; RESP 11–22
[2018-08-24] MEDS: ALBUTEROL/IPRATROPIUM (NEB) 3 ML AMP HHN SCH ×3 (01:14→22:36)
[2018-08-24] MEDS: ASPIRIN (EC) 81 MG TAB PO SCH ×2 (01:37→09:00)
[2018-08-24] MEDS: INSULIN ASPART [NOVOLOG] 3 ML PEN SC SCH ×2 (01:48→05:00)
[2018-08-24] MEDS ORDERED: ACCU-CHEK XX SCH (02:00)
[2018-08-24] MEDS ORDERED: LIDOCAINE 1% (MDV) 20 ML INJ ONE (06:51)
[2018-08-24] MEDS ORDERED: IODIXANOL LOCM 100 ML BTL ONE (06:51)
[2018-08-24] MEDS ORDERED: MIDAZOLAM 1 MG/ML 2 ML INJ ONE (07:27)
[2018-08-24] MEDS ORDERED: FENTAnyl 50 MCG/ML VIAL ONE (07:27)
--- NOTE | 2018-08-24 07:30 | CONS ---
Consult Date/Type/Reason Admit Date/Time Aug 23, 2018 at 15:55 Initial Consult Date 08/23/18 Type of Consultation: cv Requesting Provider: CHRISTEN CLARK NP Date/Time of Note DATE: 08/24/18 TIME: 07:27 Subjective Interventional cardiology follow-up progress note Subjective: Case discussed with the staff telemetry was reviewed. Patient status post hemodialysis August 23 Breathing has significantly improved. No chest pain at the moment. He denies any active bleeding to me Objective: General: no acute distress HEENT: NC/AT. pupils are equal. round. NECK: NO JVD. no stridor. CV: RRR. systolic murmur; no gallop or rubs. PULM: no wheezing + rhonchi at the base. GI: SOFT, NT, ND, no rebound or guarding Extremity: trace B/L LE edema. no clubbing. neuro: awake and alert, OX3. Psych: calm and pleasant rectal: deferred EKG shows normal sinus rhythm ST-T wave abnormalities inferolateral ischemia versus LVH and strain Echocardiogram was also personally reviewed which shows: cavity size. Moderate concentric left ventricular hypertrophy. Ejection fraction is visually estimated at 65 %. Tissue Doppler/Mitral Doppler indices are consistent with impaired relaxation (Stage I diastolic dysfunction). There is moderate enlargement of left atrium. Mild mitral leaflet calcification. Moderate mitral annular calcification. Trace mitral regurgitation. Normal appearance of the aortic valve. No significant aortic stenosis or insufficiency. Normal appearance of the tricuspid valve. Estimated peak PA systolic pressure 43 mmHg. There is trace tricuspid regurgitation. Objective Vitals Vital Signs Date Temp Pulse Resp B/P (MAP) Pulse Ox O2 O2 Flow FiO2 Time Delivery Rate 08/24/18 86 99 Nasal 6.0 04:47 Cannula 08/24/18 98.3 18 137/62 03:15 (87) 08/23/18 40 11:13 Intake and Output 08/23/18 08/23/18 08/24/18 1515:00 23:00 07:00 IntakeIntake Total 300 ml OutputOutput Total 3000 ml BalanceBalance -2700 ml Results/Medications Result Diagram: 08/24/18 0551 08/23/18 0950 Results 24 hrs Laboratory Tests Test 08/23/18 09:50 08/23/18 16:58 08/23/18 17:34 08/23/18 18:33 White Blood Count 19.6 #H Red Blood Count 3.27 L Hemoglobin 9.9 L Hematocrit 31.5 L Mean Corpuscular 96.3 Volume Mean Corpuscular 30.3 Hemoglobin Mean Corpuscular 31.4 L Hemoglobin Concen t Red Cell 14.3 Distribution Width Platelet Count 347 Mean Platelet 11.2 #H Volume Immature 0.800 H Granulocytes % Neutrophils % 82.6 H Lymphocytes % 14.1 L Monocytes % 2.1 Eosinophils % 0.2 Basophils % 0.2 Nucleated Red 0.0 Blood Cells % Immature 0.150 H Granulocytes # Neutrophils # 16.2 H Lymphocytes # 2.8 Monocytes # 0.4 Eosinophils # 0.0 Basophils # 0.0 Nucleated Red 0.0 Blood Cells # Sodium Level 138 Potassium Level 5.4 H Chloride Level 98 Carbon Dioxide 20 L Level Anion Gap 20 H Blood Urea 62 H Nitrogen Creatinine 10.22 H Est Glomerular 5 L Filtrat Rate mL/min Glucose Level 321 H Calcium Level 8.9 Total Bilirubin 0.3 Direct Bilirubin 0.00 Indirect 0.3 Bilirubin Aspartate Amino 99 H Transf (AST/SGOT) Alanine 58 Aminotransferase (ALT/SGPT) Alkaline 154 H Phosphatase Troponin I 0.311 *H 0.766 *H B-Type 40881 H Natriuretic Peptide Total Protein 8.3 H Albumin 4.3 Globulin 4.00 H Albumin/Globulin 1.07 Ratio Creatine Kinase 80 Creatine Kinase 4.1 Index Creatinine Kinase 3.27 H MB (Mass) Bedside Glucose 126 Hepatitis B NEGATIVE Surface Antigen Hepatitis B POSITIVE H Surface Antibody Test 08/23/18 21:26 08/23/18 22:57 08/24/18 00:02 08/24/18 01:36 Bedside Glucose 146 156 Creatine Kinase 71 Creatine Kinase 4.1 Index Creatinine Kinase 2.89 H MB (Mass) Troponin I 0.931 *H Blood Gas Blood arterial Specimen Source Arterial Blood 08/24/2018 12:17: Date Drawn 27 AM Arterial Blood pH 7.515 H (Temp corrected) Arterial Blood 38.2 pCO2 (Temp correct) Arterial Blood 57.3 L pO2 (Temp corrected) Arterial Blood 30.1 H HCO3 Arterial Blood 6.7 H Base Excess Arterial Blood 91.4 L Oxygen Saturation Amaury Test ACCEPTAB Arterial Blood Right Brachial Gas Puncture Site Arterial 0.3 Blood Carboxyhemo globin Arterial Blood 0.3 Methemoglobin Blood Gas A-a O2 133.4 H Differential Oxyhemoglobin 90.9 L Percent Blood Gas 37.0 Temperature Blood Gas Actual 22 Respiration Rate Blood Gas NASAL CANNULA Modality FiO2 33.0 Blood Gas [facility] Notified Whom Blood Gas 08/24/2018 12:32: Notified Time 16 AM Test 08/24/18 05:51 08/24/18 06:41 White Blood Count 9.8 # Red Blood Count 2.46 #L Hemoglobin 7.5 #L Hematocrit 23.3 #L Mean Corpuscular 94.7 Volume Mean Corpuscular 30.5 Hemoglobin Mean Corpuscular 32.2 Hemoglobin Concen t Red Cell 14.3 Distribution Width Platelet Count 217 # Mean Platelet 11.6 H Volume Immature 0.600 H Granulocytes % Neutrophils % 76.5 Lymphocytes % 12.8 L Monocytes % 7.6 Eosinophils % 2.1 Basophils % 0.4 Nucleated Red 0.0 Blood Cells % Immature 0.060 H Granulocytes # Neutrophils # 7.5 Lymphocytes # 1.3 Monocytes # 0.8 Eosinophils # 0.2 Basophils # 0.0 Nucleated Red 0.0 Blood Cells # Bedside Glucose 89 Home Meds Reported Medications Atorvastatin* (Atorvastatin*) 80 Mg Tablet, 80 MG PO QHS, #30 TAB 08/23/18 Losartan Potassium* (Losartan Potassium*) 50 Mg Tablet, 50 MG PO DAILY, TAB 08/23/18 Minoxidil* (Lonitin*) 2.5 Mg Tab, 2.5 MG PO DAILY, TAB 08/23/18 Furosemide* (Furosemide*) 40 Mg Tablet, 40 MG PO DAILY, TAB 08/23/18 Carvedilol* (Carvedilol*) 12.5 Mg Tablet, 12.5 MG PO BID, #60 TAB 08/23/18 Cholecalciferol (Vitamin D3) 5,000 Unit Tablet, 5000 UNIT PO DAILY, TAB 08/23/18 Nifedipine* (Nifedipine ER*) 30 Mg Tablet.sa, 30 MG PO DAILY, TAB.SA 08/23/18 Bumetanide* (Bumetanide*) 1 Mg Tablet, 1 MG PO DAILY, TAB 08/23/18 Albuterol Sulfate* (Ventolin HFA*) 18 Gm Hfa.aer.ad, 2 PUFF INHALATION Q4H, #1 INHALER 08/23/18 Ciprofloxacin Hcl* (Ciprofloxacin Hcl*) 500 Mg Tablet, 500 MG PO DAILY, #14 TAB STARTED ON 08-18-18 FOR 14 DAYS 08/23/18 Discontinued Reported Medications Tramadol HCl (Tramadol HCl) 50 Mg Tab, 50 MG PO Q6H PRN for PAIN, TAB 01/13/14 Amlodipine Besylate* (Amlodipine Besylate*) 10 Mg Tablet, 10 MG PO DAILY, TAB 01/13/14 Clopidogrel Bisulfate (Clopidogrel) 75 Mg Tablet, 75 MG PO DAILY, TAB 01/13/14 Calcium Acetate (Calcium Acetate) 667 Mg Tablet, 667 MG PO DAILY, TAB 01/13/14 Atenolol* (Atenolol*) 25 Mg Tablet, 25 MG PO DAILY, TAB 01/13/14 Simvastatin (Simvastatin) 20 Mg Tablet, 20 MG PO HS, TAB 01/13/14 Aspirin (Aspirin) 325 Mg Tablet.dr, 325 MG PO 01/13/14 Ferrous Sulfate (Ferrous Sulfate) 324 Mg Tabsr, 324 MG PO BID 01/13/14 [Isosorbide] No Conflict Check, 10 MG PO TID 01/13/14 Febuxostat* (Uloric*) 80 Mg Tablet, 80 MG PO DAILY, TAB 01/13/14 Losartan Potassium* (Losartan Potassium*) 50 Mg Tablet, 50 MG PO DAILY, TAB 01/13/14 [Baclofen] No Conflict Check, 10 MG PO BID 01/13/14 Carvedilol* (Carvedilol*) 25 Mg Tablet, 3.125 MG PO DAILY 05/10/13 Famotidine* (Pepcid*) 20 Mg Tablet, 20 MG PO DAILY 05/10/13 Medications Current Medications Atorvastatin Calcium (Lipitor) 80 mg QHS PO Last administered on 08/23/18at 21:28; Admin Dose 80 MG; Start 08/23/18 at 21:00 Carvedilol (Coreg) 12.5 mg BID PO Last administered on 08/23/18at 21:29; Admin Dose 12.5 MG; Start 08/23/18 at 21:00 Cholecalciferol (Vitamin D) 5,000 unit DAILY PO ; Start 08/24/18 at 09:00 Losartan Potassium (Cozaar) 50 mg DAILY PO ; Start 08/24/18 at 09:00 Minoxidil (Loniten) 2.5 mg DAILY PO ; Start 08/24/18 at 09:00 Nifedipine (Procardia Xl) 30 mg DAILY PO ; Start 08/24/18 at 09:00 IV Flush (NS 3 ml) 3 ml PER PROTOCOL IV ; Start 08/23/18 at 15:30 Ondansetron HCl (Zofran Inj) 4 mg Q6H PRN IV NAUSEA/VOMITING; Start 08/23/18 at 15:30 Acetaminophen (Tylenol Tab) 650 mg Q6H PRN PO .PAIN 1-3 OR TEMP; Start 08/23/18 at 15:30 Acetaminophen (Tylenol Supp) 650 mg Q6H PRN [place] .PAIN 1-3 OR TEMP; Start 08/23/18 at 15:30 Famotidine (Pepcid) 20 mg Q12 PO Last administered on 08/23/18at 21:28; Admin Dose 20 MG; Start 08/23/18 at 21:00 Heparin Sodium (Porcine) (Heparin (5000 Units/1ml)) 5,000 unit Q12 SC Last administered on 08/23/18at 21:51; Admin Dose 5,000 UNIT; Start 08/23/18 at 21:00 Diagnostic Test (Pha) (Accu-Chek) 1 ea 02 XX ; Start 08/24/18 at 02:00 Insulin Glargine (Lantus) 11 units DAILY@2000 SC Last administered on 08/23/18at 21:51; Admin Dose 11 UNITS; Start 08/23/18 at 20:00 Insulin Aspart (Novolog Insulin Pen) NOVOLOG *MILD* ALGORI... Q4 SC Last administered on 08/24/18at 01:48; Admin Dose 1 UNIT; Start 08/23/18 at 17:30 Ceftriaxone Sodium 50 ml @ 100 mls/hr Q24H IVPB Last administered on 08/23/18at 15:20; Admin Dose 100 MLS/HR; Start 08/23/18 at 15:30 Albuterol/ Ipratropium (Duoneb) 3 ml Q4H RESP THERAPY HHN Last administered on 08/24/18at 04:47; Admin Dose 3 ML; Start 08/23/18 at 17:00 Miscellaneous Information 1 ea NOTE XX ; Start 08/23/18 at 15:30 Glucose (Glutose) 15 gm Q15M PRN PO DECREASED GLUCOSE; Start 08/23/18 at 15:30 Glucose (Glutose) 22.5 gm Q15M PRN PO DECREASED GLUCOSE; Start 08/23/18 at 15:30 Dextrose (D50w Syringe) 25 ml Q15M PRN IV DECREASED GLUCOSE; Start 08/23/18 at 15:30 Dextrose (D50w Syringe) 50 ml Q15M PRN IV DECREASED GLUCOSE; Start 08/23/18 at 15:30 Glucagon (Glucagen) 1 mg Q15M PRN IM DECREASED GLUCOSE; Start 08/23/18 at 15:30 Glucose (Glutose) 15 gm Q15M PRN BUCCAL DECREASED GLUCOSE; Start 08/23/18 at 15:30 Aspirin (Halfprin) 81 mg DAILY PO Last administered on 08/24/18at 01:37; Admin Dose 81 MG; Start 08/23/18 at 18:00 Influenza Virus Vaccine Quadrival (Fluzone) 0.5 ml ONCE ONCE IM* ; Start 08/24/18 at 09:00; Stop 08/24/18 at 09:01 Heparin Sodium (Porcine) (Heparin (1000 Units/ml)) 4,800 unit PRN PRN [facility] Dialysis Last administered on 08/23/18at 20:20; Admin Dose 4,800 UNIT; Start 08/23/18 at 18:30 Assessment/Plan Hospital Course (Demo Recall) 1. abnormal and increasing troponin and chest pain consistent with NSTEMI 2. Fluid overload/congestive heart failure secondary to fluid overload and diastolic heart failure 3. Respiratory failure secondary to above 4. Hypertension with hypertensive heart disease 5. Renal failure on dialysis 6. Dyslipidemia 7. Anemia Recommendations: CONT BP control We will try to get the old records Continue the beta-liu and increase as needed/tolerated Hemodialysis has been arranged by renal ASA daily statin [facility] tony PCI today . Risks, benefits and alternative procedure discussed with the patient in detail. Risks including but not limited to risk of infection vascular complication bleeding complication IN stroke arrhythmia etc. discussed with the patient. Patient consented to procedure Thank you for this referral. We will continue to follow along with you SOUTH AMAYA MD [facility] SOUTH AMAYA MD Aug 24, 2018 07:30
[2018-08-24] MEDS ORDERED: CLOPIDOGREL 300 MG TAB ONE ×2 (07:47→08:18)
[2018-08-24] MEDS ORDERED: BIVALIRUDIN 250MG /NS 50 ML 50 ML IVPB ONE (08:01)
[2018-08-24] MEDS ORDERED: SOD CHLORIDE 0.9% 1,000 ML IV SCH (08:16)
--- NOTE | 2018-08-24 08:29 | OPR ---
Date/Time of Note Date/Time of Note DATE: 08/24/18 TIME: 08:22 Operative Report Procedure Date: Aug 24, 2018 Preoperative Diagnosis NSTEMI Postoperative Diagnosis NSTEMI Operation/Procedure Performed PCI RCA Surgeon see signature line Global Creative Chairman N/A Anesthesia Type: moderate sedation Estimated Blood Loss: minimal Transfusion none Specimen None Grafts/Implants none Complications none Procedure Description Statistician Applied: [place] MD Indication: nstemi Procure performed: #1 left heart catheterization and selective right and left coronary angiogram #2 Right femoral angiogram 3. Successful PTCA and stenting of right coronary artery using a 4 x 20 mm Synergy drug-eluting stent 4. Moderate sedation for more than 45 minutes Findings: 1. Left main: is large and normal and birfurcates to LAD & LCX. 2. LAD: has stenosis at proximal LAD, and 20 % stenosis at mid LAD. LAD is long and wraps around the apex 3. Left circumflex artery: is large and nondominant. it has about 70% calcified proximal stenosis 4. RCA: is very large and dominant. it has 90 % stenosis at proximal to mid RCA. After successful PCI of this lesion no significant residual stenosis was left 5. LV EDP is 18 with no significant gradient across aortic valve: Procedure in detail: Written informed consent with obtained after risks benefits and alternatives discussed with the patient in detail. risks including but not limited to risk of infection vascular complications, bleeding complications, ID stroke arrhythmia renal failure at even were discussed with the patient in d etail. Patient was brought into the cardiac laborer chemical processing and placed in supine position. Right and left groin area was prepped and draped in regular sterile fashion and then he was in anesthetized using 1% lidocaine. Right femoral artery was cannulated and using modified seldinger technique a 6 Albanian sheath was placed in the femoral artery. Femoral angiogram was performed JL4 guiding catheter was advanced to engage the left main coronary artery angiographic view was obtained. JR4 catheter was advanced and engaged into the right coronary artery and angiographic view was obtained. Then a pigtail was advanced to engage the left ventricle hemodynamics as recorded by pullback aortic pressure was measured. At this time we decided to perform PCI of the right coronary artery. A JR4 guiding letter was advanced to engage the right coronary artery. BMW wire was used and advanced across the lesion and placed distal to the lesion. I used a 3 x 8 balloon which was placed across the lesion and predilated the vessel. Then I used a 4 x 20 Synergy drug-eluting stent which was placed across the lesion and deployed at 16 French. Finally a 4.5 x 8 mm noncompliant balloon was used and postdilated the stent and up to 18 French. Final angiographic view was obtained which showed ARANZA-3 flow no evidence of dissection and no significant residual stenosis at the site of the stent. perclose was successfully deployed. Patient tolerated the procedure well with no complication. Patient is to be transferred to recovery in stable condition Conclusions: Successful PTCA stenting of the proximal to mid right coronary artery from 90% stenosis to no significant residual stenosis using a 4 x 20 mm Synergy drug-eluting stent. Recommendations: Aggressive medical therapy. aspirin indefinitely dual antiplatlet therapy with aspirin and Plavix SOUTH BEAVER MD [facility] SOUTH BEAVER MD Aug 24, 2018 08:28
[2018-08-24] MEDS ORDERED: ACETAMINOPHEN 325 MG TAB PO PRN (08:30)
[2018-08-24] MEDS ORDERED: morphine 2 MG INJ IV PRN (08:30)
[2018-08-24] MEDS ORDERED: OXYCODONE/ACETAMINOPHEN (5/325) TAB PO PRN (08:30)
[2018-08-24] MEDS ORDERED: BIVALIRUDIN 250 MG in SOD CHLORIDE 0.9% 500 ML IV SCH (08:30)
[2018-08-24] MEDS ORDERED: INFLUENZA VIRUS VACCINE 0.5 ML (DISPENSING) IM* ONE (09:00)
[2018-08-24] MEDS: CHOLECALCIFEROL 1,000 UNIT TAB PO SCH (09:00)
[2018-08-24] MEDS ORDERED: MINOXIDIL 2.5 MG TAB PO SCH (09:00)
[2018-08-24] MEDS: LOSARTAN 50 MG TAB PO SCH (09:00)
[2018-08-24] MEDS: NIFEdipine (XL) 30 MG TAB PO SCH (09:00)
[2018-08-24] MEDS: FAMOTIDINE 20 MG TAB PO SCH (09:00)
[2018-08-24] MEDS ORDERED: morphine 2 MG INJ ONE (10:44)
--- NOTE | 2018-08-24 10:49 | PN ---
Date/Time of Note Date/Time of Note DATE: 08/24/18 TIME: 10:40 Assessment/Plan VTE Prophylaxis Risk score (from Nsg)>0 risk: 2 SCD applied (from Nsg): Yes Pharmacological prophylaxis: NA/contraindicated Pharm contraindication: low risk/ambulating, other (asa/plavix) Lines/Catheters IV [facility]atheter [facility]from [facility] Saline Lock Urinary Cath still in place: No Assessment/Plan Hospital Course SUBJECTIVE: s/p LHC. Improved resp status.. OBJECTIVE: Vital signs-see below PHYSICAL EXAM: Constitutional: Korean-speaking male, not in acute distress. Psych: nl mood/affect, no complaints Head: atraumatic, normocephalic Eyes: nl conjunctiva, nl sclera ENMT: mucosa pink and moist, nl external ears & nose Neck: non-tender, supple Respiratory: Crackles bilaterally-improved. increased work of breathing. Cardiovascular: nl pulses, regular rate and rhythm Gastrointestinal: non-tender, soft, bowel sounds active in all 4 quadrants. Musculoskeletal/extremities: nl extremities to inspection, motor strength equal bilaterally, no focal deficit. Normal pulses,no cyanosis, no edema. Neurological:Alert oriented 3,nl speech, nl strength Skin: nl turgor ASSESSMENT/PLAN: 67-year-old male with ESRD, on hemodialysis Thursday, Thursday, Thursday, dyslipidemia, hypertension, vitamin D deficiency, presented to the emergency room with worsening shortness of breath found to have NSTEMI/Resp fx requiring BiPAP 1. Acute hypoxemic respiratory failure secondary to volume overload/CHF exacerbation/NSTEMI -improving nicely -cont PRN bronchodilators,UF for volume removal 2.Acute decompensated diastolic congestive heart failure exacerbation 2/2 volume overload 2/2 ESRD -Clinically improving=>appreciate cards recs. -cont. ultrafiltration/HD -cont. BB/ARB 3.NSTEMI -s/p LHC/PCI to RCA 08/23 -cont.asa/Plavix/statin -f/u cards recs -monitor for bleeding in light of HH drop 4. ESRD, HD MWF -Access: Left IJ permacath-c/d/i -appreciate nephrology recs -Monitor renal function 5. Leukocytosis, likely reactive vs possible URI -RESOLVED -cont ceftriaxone ~48 hrs and then stop 6. Hyperglycemia, likely stress related -resolved -dc insulin as pt doesn't have DM 7.Hypertension -Not controlled well on arrival=> this post 1 dose IV Vasotec, currently BP stable. -Resume home medications and hopefully by hemodialysis his blood pressure will be more controlled. If not we will add additional agents. 8.Vitamin D deficiency. -CONT supplementation 9. Hyperkalemia with ESRD -This is now resolved 10. Anemia of ESRD -HH dropped-r/o bleed -obtain stool OB,DC HEPARIN - Epogen w/ hemodialysis per nephrology if indicated. - Tx 2 PRBC pr nephro recs w/ HD today VT prophylaxis: Heparin PUD prophylaxis: Protonix CODE STATUS: Full code Diet: Renal/low chol diet disp:cont current management.await for clinical improvement. CM to get asa/Plavix delivered to pt prior dc. Patient is seen in collaboration with Dr. Suarez. Result Diagram: 08/24/18 0551 08/24/18 0551 Results 24hrs Laboratory Tests Test 08/23/18 16:58 08/23/18 17:34 08/23/18 18:33 08/23/18 21:26 Creatine Kinase 80 Creatine Kinase 4.1 Index Creatinine Kinase 3.27 H MB (Mass) Troponin I 0.766 *H Bedside Glucose 126 146 Hepatitis B NEGATIVE Surface Antigen Hepatitis B POSITIVE H Surface Antibody Test 08/23/18 22:57 08/24/18 00:02 08/24/18 01:36 08/24/18 05:51 Creatine Kinase 71 62 Creatine Kinase 4.1 4.1 Index Creatinine Kinase 2.89 H 2.57 H MB (Mass) Troponin I 0.931 *H 0.971 *H Blood Gas Blood arterial Specimen Source Arterial Blood 08/24/2018 12:17: Date Drawn 27 AM Arterial Blood pH 7.515 H (Temp corrected) Arterial Blood 38.2 pCO2 (Temp correct) Arterial Blood 57.3 L pO2 (Temp corrected) Arterial Blood 30.1 H HCO3 Arterial Blood 6.7 H Base Excess Arterial Blood 91.4 L Oxygen Saturation Amaury Test ACCEPTAB Arterial Blood Right Brachial Gas Puncture Site Arterial 0.3 Blood Carboxyhemo globin Arterial Blood 0.3 Methemoglobin Blood Gas A-a O2 133.4 H Differential Oxyhemoglobin 90.9 L Percent Blood Gas 37.0 Temperature Blood Gas Actual 22 Respiration Rate Blood Gas NASAL CANNULA Modality FiO2 33.0 Blood Gas L.Faust [facility] Notified Whom Blood Gas 08/24/2018 12:32: Notified Time 16 AM Bedside Glucose 156 White Blood Count 9.8 # Red Blood Count 2.46 #L Hemoglobin 7.5 #L Hematocrit 23.3 #L Mean Corpuscular 94.7 Volume Mean Corpuscular 30.5 Hemoglobin Mean Corpuscular 32.2 Hemoglobin Concen t Red Cell 14.3 Distribution Width Platelet Count 217 # Mean Platelet 11.6 H Volume Immature 0.600 H Granulocytes % Neutrophils % 76.5 Lymphocytes % 12.8 L Monocytes % 7.6 Eosinophils % 2.1 Basophils % 0.4 Nucleated Red 0.0 Blood Cells % Immature 0.060 H Granulocytes # Neutrophils # 7.5 Lymphocytes # 1.3 Monocytes # 0.8 Eosinophils # 0.2 Basophils # 0.0 Nucleated Red 0.0 Blood Cells # Prothrombin Time 14.6 Prothrombin Time 1.1 Ratio INR International 1.13 Normalized Ratio Activated 30.2 Partial Thrombopl ast Time Sodium Level 139 Potassium Level 4.6 Chloride Level 97 Carbon Dioxide 30 # Level Anion Gap 12 # Blood Urea 37 #H Nitrogen Creatinine 6.19 #H Est Glomerular 9 L Filtrat Rate mL/min Glucose Level 72 # Hemoglobin A1c 5.7 Calcium Level 8.5 Phosphorus Level 5.3 H Magnesium Level 2.2 Ferritin 874.0 H Total Bilirubin 0.3 Direct Bilirubin 0.00 Indirect 0.3 Bilirubin Aspartate Amino 40 # Transf (AST/SGOT) Alanine 43 Aminotransferase (ALT/SGPT) Alkaline 82 Phosphatase Total Protein 6.3 # Albumin 3.3 # Globulin 3.00 Albumin/Globulin 1.10 Ratio Triglycerides 77 Level Cholesterol Level 140 LDL Cholesterol, 87 Calculated HDL Cholesterol 38 Cholesterol/HDL 3.6 Ratio Free Thyroxine 1.23 Test 08/24/18 05:52 08/24/18 06:41 Iron Level 50 Total Iron 167 L Binding Capacity Percent Iron 30 Saturation Thyroid 2.540 Stimulating Hormone (TSH) Bedside Glucose 89 Exam/Review of Systems Exam Vitals Vital Signs Date Temp Pulse Resp B/P (MAP) Pulse Ox O2 O2 Flow FiO2 Time Delivery Rate 08/24/18 80 14 155/68 100 Nasal 2.0 09:46 (97) Cannula 08/24/18 98.4 08:31 08/23/18 40 11:13 Intake and Output 3/08/23/18 08/24/18 1515:00 23:00 07:00 IntakeIntake Total 300 ml OutputOutput Total 3000 ml BalanceBalance -2700 ml Results Results 24hrs Laboratory Tests Test 08/23/18 16:58 08/23/18 17:34 08/23/18 18:33 08/23/18 21:26 Creatine Kinase 80 Creatine Kinase 4.1 Index Creatinine Kinase 3.27 H MB (Mass) Troponin I 0.766 *H Bedside Glucose 126 146 Hepatitis B NEGATIVE Surface Antigen Hepatitis B POSITIVE H Surface Antibody Test 08/23/18 22:57 08/24/18 00:02 08/24/18 01:36 08/24/18 05:51 Creatine Kinase 71 62 Creatine Kinase 4.1 4.1 Index Creatinine Kinase 2.89 H 2.57 H MB (Mass) Troponin I 0.931 *H 0.971 *H Blood Gas Blood arterial Specimen Source Arterial Blood 08/24/2018 12:17: Date Drawn 27 AM Arterial Blood pH 7.515 H (Temp corrected) Arterial Blood 38.2 pCO2 (Temp correct) Arterial Blood 57.3 L pO2 (Temp corrected) Arterial Blood 30.1 H HCO3 Arterial Blood 6.7 H Base Excess Arterial Blood 91.4 L Oxygen Saturation Amaury Test ACCEPTAB Arterial Blood Right Brachial Gas Puncture Site Arterial 0.3 Blood Carboxyhemo globin Arterial Blood 0.3 Methemoglobin Blood Gas A-a O2 133.4 H Differential Oxyhemoglobin 90.9 L Percent Blood Gas 37.0 Temperature Blood Gas Actual 22 Respiration Rate Blood Gas NASAL CANNULA Modality FiO2 33.0 Blood Gas LAmarilis [facility] Notified Whom Blood Gas 08/24/2018 12:32: Notified Time 16 AM Bedside Glucose 156 White Blood Count 9.8 # Red Blood Count 2.46 #L Hemoglobin 7.5 #L Hematocrit 23.3 #L Mean Corpuscular 94.7 Volume Mean Corpuscular 30.5 Hemoglobin Mean Corpuscular 32.2 Hemoglobin Concen t Red Cell 14.3 Distribution Width Platelet Count 217 # Mean Platelet 11.6 H Volume Immature 0.600 H Granulocytes % Neutrophils % 76.5 Lymphocytes % 12.8 L Monocytes % 7.6 Eosinophils % 2.1 Basophils % 0.4 Nucleated Red 0.0 Blood Cells % Immature 0.060 H Granulocytes # Neutrophils # 7.5 Lymphocytes # 1.3 Monocytes # 0.8 Eosinophils # 0.2 Basophils # 0.0 Nucleated Red 0.0 Blood Cells # Prothrombin Time 14.6 Prothrombin Time 1.1 Ratio INR International 1.13 Normalized Ratio Activated 30.2 Partial Thrombopl ast Time Sodium Level 139 Potassium Level 4.6 Chloride Level 97 Carbon Dioxide 30 # Level Anion Gap 12 # Blood Urea 37 #H Nitrogen Creatinine 6.19 #H Est Glomerular 9 L Filtrat Rate mL/min Glucose Level 72 # Hemoglobin A1c 5.7 Calcium Level 8.5 Phosphorus Level 5.3 H Magnesium Level 2.2 Ferritin 874.0 H Total Bilirubin 0.3 Direct Bilirubin 0.00 Indirect 0.3 Bilirubin Aspartate Amino 40 # Transf (AST/SGOT) Alanine 43 Aminotransferase (ALT/SGPT) Alkaline 82 Phosphatase Total Protein 6.3 # Albumin 3.3 # Globulin 3.00 Albumin/Globulin 1.10 Ratio Triglycerides 77 Level Cholesterol Level 140 LDL Cholesterol, 87 Calculated HDL Cholesterol 38 Cholesterol/HDL 3.6 Ratio Free Thyroxine 1.23 Test 08/24/18 05:52 08/24/18 06:41 Iron Level 50 Total Iron 167 L Binding Capacity Percent Iron 30 Saturation Thyroid 2.540 Stimulating Hormone (TSH) Bedside Glucose 89 Medications Medication Current Medications Atorvastatin Calcium (Lipitor) 80 mg QHS PO Last administered on 08/23/18at 21:28; Admin Dose 80 MG; Start 08/23/18 at 21:00 Carvedilol (Coreg) 12.5 mg BID PO Last administered on 08/23/18at 21:29; Admin Dose 12.5 MG; Start 08/23/18 at 21:00 Cholecalciferol (Vitamin D) 5,000 unit DAILY PO ; Start 08/24/18 at 09:00 Losartan Potassium (Cozaar) 50 mg DAILY PO ; Start 08/24/18 at 09:00 Nifedipine (Procardia Xl) 30 mg DAILY PO ; Start 08/24/18 at 09:00 IV Flush (NS 3 ml) 3 ml PER PROTOCOL IV ; Start 08/23/18 at 15:30 Ondansetron HCl (Zofran Inj) 4 mg Q6H PRN IV NAUSEA/VOMITING; Start 08/23/18 at 15:30 Acetaminophen (Tylenol Tab) 650 mg Q6H PRN PO .PAIN 1-3 OR TEMP; Start 08/23/18 at 15:30 Acetaminophen (Tylenol Supp) 650 mg Q6H PRN [place] .PAIN 1-3 OR TEMP; Start 08/23/18 at 15:30 Famotidine (Pepcid) 20 mg Q12 PO Last administered on 08/23/18at 21:28; Admin Dose 20 MG; Start 08/23/18 at 21:00 Heparin Sodium (Porcine) (Heparin (5000 Units/1ml)) 5,000 unit Q12 SC Last administered on 08/23/18at 21:51; Admin Dose 5,000 UNIT; Start 08/23/18 at 21:00 Diagnostic Test (Pha) (Accu-Chek) 1 ea 02 XX ; Start 08/24/18 at 02:00 Insulin Glargine (Lantus) 11 units DAILY@2000 SC Last administered on 08/23/18at 21:51; Admin Dose 11 UNITS; Start 08/23/18 at 20:00 Insulin Aspart (Novolog Insulin Pen) NOVOLOG *MILD* ALGORI... Q4 SC Last administered on 08/24/18at 01:48; Admin Dose 1 UNIT; Start 08/23/18 at 17:30 Ceftriaxone Sodium 50 ml @ 100 mls/hr Q24H IVPB Last administered on 08/23/18at 15:20; Admin Dose 100 MLS/HR; Start 08/23/18 at 15:30 Albuterol/ Ipratropium (Duoneb) 3 ml Q4H RESP THERAPY HHN Last administered on 08/24/18at 04:47; Admin Dose 3 ML; Start 08/23/18 at 17:00 Miscellaneous Information 1 ea NOTE XX ; Start 08/23/18 at 15:30 Glucose (Glutose) 15 gm Q15M PRN PO DECREASED GLUCOSE; Start 08/23/18 at 15:30 Glucose (Glutose) 22.5 gm Q15M PRN PO DECREASED GLUCOSE; Start 08/23/18 at 15:30 Dextrose (D50w Syringe) 25 ml Q15M PRN IV DECREASED GLUCOSE; Start 08/23/18 at 15:30 Dextrose (D50w Syringe) 50 ml Q15M PRN IV DECREASED GLUCOSE; Start 08/23/18 at 15:30 Glucagon (Glucagen) 1 mg Q15M PRN IM DECREASED GLUCOSE; Start 08/23/18 at 15:30 Glucose (Glutose) 15 gm Q15M PRN BUCCAL DECREASED GLUCOSE; Start 08/23/18 at 15:30 Aspirin (Halfprin) 81 mg DAILY PO Last administered on 08/24/18at 01:37; Admin Dose 81 MG; Start 08/23/18 at 18:00 Heparin Sodium (Porcine) (Heparin (1000 Units/ml)) 4,800 unit PRN PRN CATHETER Dialysis Last administered on 08/23/18at 20:20; Admin Dose 4,800 UNIT; Start 08/23/18 at 18:30 Miscellaneous Information (* Miscellaneous Pharmacy Order) Hold all Metformin ... ONCE ONCE XX ; Start 08/24/18 at 08:30; Stop 08/24/18 at 08:31; Status UNV Clopidogrel Bisulfate (plaVIX) 75 mg DAILY PO ; Start 08/25/18 at 09:00; Status UNV Bivalirudin 250 mg/Sodium Chloride 500 ml @ 32.12 mls/ hr NOW IV ; Start 08/24/18 at 08:30; Stop 08/24/18 at 11:29; Status UNV Acetaminophen (Tylenol Tab) 650 mg Q4H PRN PO PAIN; Start 08/24/18 at 08:30; Status UNV Oxycodone/ Acetaminophen (Percocet (5/ 325)) 1 tab Q4H PRN PO PAIN; Start 08/24/18 at 08:30; Status UNV Morphine Sulfate (morphine) 1 mg Q1H PRN IV PAIN; Start 08/24/18 at 08:30; Status UNV Sodium Chloride 1,000 ml @ 50 mls/hr Q20H IV ; Start 08/24/18 at 08:16; Stop 08/24/18 at 13:15; Status UNV CHRISTEN CLARK NP Aug 24, 2018 10:49
[2018-08-24] MEDS ORDERED: SOD CHLORIDE 0.9% 250 ML IV* ONE (11:04)
[2018-08-24] MEDS: CEFTRIAXONE 1 GM/50 ML (PMX) 50 ML IVPB SCH (16:49)
--- NOTE | 2018-08-24 18:11 | CONS ---
Assessment/Plan Assessment/Plan Hospital Course (Demo Recall) 1. End-stage renal disease on maintenance hemodialysis, I have ordered hemodialysis for this patient today. I have also ordered for him to get a blood transfusion during the dialysis treatment. 2. Anemia of chronic kidney disease , his hemoglobin is lower today. He will receive a blood transfusion during dialysis and I will start him on Epogen. 3. coronary artery disease, status post left heart catheterization with right coronary artery stent placement 4. Hypertension 5. Congestive heart failure, now improved 6. Respiratory failure due to #3 and #5 above 7. Hyperlipidemia. Consultation Date/Type/Reason Admit Date/Time Aug 23, 2018 at 15:55 Initial Consult Date 08/23/18 Type of Consult Nephrology Requesting Provider: CHRISTEN CLARK NP Date/Time of Note DATE: 08/24/18 TIME: 18:05 24 HR Interval Summary Free Text/Dictation This patient is being seen in nephrologic follow-up. The patient is now in the PACU after undergoing a left heart catheterization and an angioplasty and stent placement in the right coronary artery. He is awake and alert. He seems comfortable. Constitutional: no complaints, improved Exam/Review of Systems Exam Vitals Vital Signs Date Temp Pulse Resp B/P (MAP) Pulse Ox O2 O2 Flow FiO2 Time Delivery Rate 08/24/18 98.0 77 20 148/67 90 16:30 (94) 08/24/18 Room Air 16:17 08/24/18 2.0 11:46 08/23/18 40 11:13 Intake and Output 08/23/18 08/23/18 08/24/18 1515:00 23:00 07:00 IntakeIntake Total 300 ml OutputOutput Total 3000 ml BalanceBalance -2700 ml Constitutional: alert, oriented, well developed Respiratory: clear to auscultation, normal air movement Cardiovascular: regular rate and rhythm Gastrointestinal: soft, non-tender Musculoskeletal: nl extremities to inspection Results Result Diagram: 08/24/18 0551 08/24/18 0551 Results 24hrs Laboratory Tests Test 08/23/18 18:33 08/23/18 21:26 08/23/18 22:57 08/24/18 00:02 Hepatitis B NEGATIVE Surface Antigen Hepatitis B POSITIVE H Surface Antibody Bedside Glucose 146 Creatine Kinase 71 Creatine Kinase 4.1 Index Creatinine Kinase 2.89 H MB (Mass) Troponin I 0.931 *H Blood Gas Blood arterial Specimen Source Arterial Blood 08/24/2018 12:17: Date Drawn 27 AM Arterial Blood pH 7.515 H (Temp corrected) Arterial Blood 38.2 pCO2 (Temp correct) Arterial Blood 57.3 L pO2 (Temp corrected) Arterial Blood 30.1 H HCO3 Arterial Blood 6.7 H Base Excess Arterial Blood 91.4 L Oxygen Saturation Amaury Test ACCEPTAB Arterial Blood Right Brachial Gas Puncture Site Arterial 0.3 Blood Carboxyhemo globin Arterial Blood 0.3 Methemoglobin Blood Gas A-a O2 133.4 H Differential Oxyhemoglobin 90.9 L Percent Blood Gas 37.0 Temperature Blood Gas Actual 22 Respiration Rate Blood Gas NASAL CANNULA Modality FiO2 33.0 Blood Gas L.Govind [facility] Notified Whom Blood Gas 08/24/2018 12:32: Notified Time 16 AM Test 08/24/18 01:36 08/24/18 05:51 08/24/18 05:52 08/24/18 06:41 Bedside Glucose 156 89 White Blood Count 9.8 # Red Blood Count 2.46 #L Hemoglobin 7.5 #L Hematocrit 23.3 #L Mean Corpuscular 94.7 Volume Mean Corpuscular 30.5 Hemoglobin Mean Corpuscular 32.2 Hemoglobin Concen t Red Cell 14.3 Distribution Width Platelet Count 217 # Mean Platelet 11.6 H Volume Immature 0.600 H Granulocytes % Neutrophils % 76.5 Lymphocytes % 12.8 L Monocytes % 7.6 Eosinophils % 2.1 Basophils % 0.4 Nucleated Red 0.0 Blood Cells % Immature 0.060 H Granulocytes # Neutrophils # 7.5 Lymphocytes # 1.3 Monocytes # 0.8 Eosinophils # 0.2 Basophils # 0.0 Nucleated Red 0.0 Blood Cells # Prothrombin Time 14.6 Prothrombin Time 1.1 Ratio INR International 1.13 Normalized Ratio Activated 30.2 Partial Thrombopl ast Time Sodium Level 139 Potassium Level 4.6 Chloride Level 97 Carbon Dioxide 30 # Level Anion Gap 12 # Blood Urea 37 #H Nitrogen Creatinine 6.19 #H Est Glomerular 9 L Filtrat Rate mL/min Glucose Level 72 # Hemoglobin A1c 5.7 Calcium Level 8.5 Phosphorus Level 5.3 H Magnesium Level 2.2 Ferritin 874.0 H Total Bilirubin 0.3 Direct Bilirubin 0.00 Indirect 0.3 Bilirubin Aspartate Amino 40 # Transf (AST/SGOT) Alanine 43 Aminotransferase (ALT/SGPT) Alkaline 82 Phosphatase Creatine Kinase 62 Creatine Kinase 4.1 Index Creatinine Kinase 2.57 H MB (Mass) Troponin I 0.971 *H Total Protein 6.3 # Albumin 3.3 # Globulin 3.00 Albumin/Globulin 1.10 Ratio Triglycerides 77 Level Cholesterol Level 140 LDL Cholesterol, 87 Calculated HDL Cholesterol 38 Cholesterol/HDL 3.6 Ratio Free Thyroxine 1.23 Iron Level 50 Total Iron 167 L Binding Capacity Percent Iron 30 Saturation Thyroid 2.540 Stimulating Hormone (TSH) Test 08/24/18 14:43 Bedside Glucose 144 Medications Medication Current Medications Atorvastatin Calcium (Lipitor) 80 mg QHS PO Last administered on 08/23/18 21:28; Admin Dose 80 MG; Start 08/23/18 at 21:00 Carvedilol (Coreg) 12.5 mg BID PO Last administered on 08/23/18 21:29; Admin Dose 12.5 MG; Start 08/23/18 at 21:00 Cholecalciferol (Vitamin D) 5,000 unit DAILY PO ; Start 08/24/18 at 09:00 Losartan Potassium (Cozaar) 50 mg DAILY PO ; Start 08/24/18 at 09:00 Nifedipine (Procardia Xl) 30 mg DAILY PO ; Start 08/24/18 at 09:00 IV Flush (NS 3 ml) 3 ml PER PROTOCOL IV ; Start 08/23/18 at 15:30 Ondansetron HCl (Zofran Inj) 4 mg Q6H PRN IV NAUSEA/VOMITING; Start 08/23/18 at 15:30 Acetaminophen (Tylenol Supp) 650 mg Q6H PRN [place] .PAIN 1-3 OR TEMP; Start 08/23/18 at 15:30 Famotidine (Pepcid) 20 mg Q12 PO Last administered on 08/23/18at 21:28; Admin Dose 20 MG; Start 08/23/18 at 21:00 Ceftriaxone Sodium 50 ml @ 100 mls/hr Q24H IVPB Last administered on 08/24/18at 16:49; Admin Dose 100 MLS/HR; Start 08/23/18 at 15:30 Albuterol/ Ipratropium (Duoneb) 3 ml Q4H RESP THERAPY HHN Last administered on 08/24/18at 04:47; Admin Dose 3 ML; Start 08/23/18 at 17:00 Miscellaneous Information 1 ea NOTE XX ; Start 08/23/18 at 15:30 Glucose (Glutose) 15 gm Q15M PRN PO DECREASED GLUCOSE; Start 08/23/18 at 15:30 Glucose (Glutose) 22.5 gm Q15M PRN PO DECREASED GLUCOSE; Start 08/23/18 at 15:30 Dextrose (D50w Syringe) 25 ml Q15M PRN IV DECREASED GLUCOSE; Start 08/23/18 at 15:30 Dextrose (D50w Syringe) 50 ml Q15M PRN IV DECREASED GLUCOSE; Start 08/23/18 at 15:30 Glucagon (Glucagen) 1 mg Q15M PRN IM DECREASED GLUCOSE; Start 08/23/18 at 15:30 Glucose (Glutose) 15 gm Q15M PRN BUCCAL DECREASED GLUCOSE; Start 08/23/18 at 15:30 Aspirin (Halfprin) 81 mg DAILY PO Last administered on 08/24/18at 01:37; Admin Dose 81 MG; Start 08/23/18 at 18:00 Heparin Sodium (Porcine) (Heparin (1000 Units/ml)) 4,800 unit PRN PRN CATHETER Dialysis Last administered on 08/23/18at 20:20; Admin Dose 4,800 UNIT; Start 07/31 10/17 at 18:30 Clopidogrel Bisulfate (plaVIX) 75 mg DAILY PO ; Start 08/25/18 at 09:00 Acetaminophen (Tylenol Tab) 650 mg Q4H PRN PO PAIN Last administered on 08/24/18at 13:18; Admin Dose 650 MG; Start 08/24/18 at 08:30 Oxycodone/ Acetaminophen (Percocet (5/ 325)) 1 tab Q4H PRN PO NON-CARDIAC MODERATE PAIN 4-7; Start 08/24/18 at 08:30 Morphine Sulfate (morphine) 1 mg Q1H PRN IV SEVERE PAIN 7-10 Last administered on 08/24/18at 10:59; Admin Dose 1 MG; Start 08/24/18 at 08:30 CHANDLER LIMA MD Aug 24, 2018 18:11
[2018-08-24] MEDS: HEPARIN 1000 UNITS/ML 10 ML INJ CATHETER PRN (22:25)
[2018-08-25] VITALS (24 sets, daily range): BP systolic 134–184; BP diastolic 61–80; PULSE 67–85; RESP 18–20
[2018-08-25] MEDS: ATORVASTATIN 80 MG TAB PO SCH ×2 (00:17→22:16)
[2018-08-25] MEDS: FAMOTIDINE 20 MG TAB PO SCH ×3 (00:18→22:19)
[2018-08-25] MEDS: ALBUTEROL/IPRATROPIUM (NEB) 3 ML AMP HHN SCH ×6 (01:30→20:07)
[2018-08-25] MEDS: CHOLECALCIFEROL 1,000 UNIT TAB PO SCH (08:10)
[2018-08-25] MEDS: NIFEdipine (XL) 30 MG TAB PO SCH (08:11)
[2018-08-25] MEDS: CLOPIDOGREL 75 MG TAB PO SCH (08:11)
[2018-08-25] MEDS: ASPIRIN (EC) 81 MG TAB PO SCH (08:11)
[2018-08-25] MEDS: LOSARTAN 50 MG TAB PO SCH (08:12)
--- NOTE | 2018-08-25 08:15 | CONS ---
Assessment/Plan Assessment/Plan Hospital Course (Demo Recall) 1. End-stage renal disease on maintenance hemodialysis, I have ordered hemodialysis for this patient today which is his usual day for dialysis.. He did get a unit of blood transfused during dialysis yesterday. He could be discharged after dialysis today. He will resume his routine hemodialysis treatments in the [facility] dialysis unit on 08/27/2018. 2. Anemia of chronic kidney disease , his hemoglobin is lower today. He did receive a unit of blood yesterday during dialysis. He is on Epogen. 3. coronary artery disease, status post left heart catheterization with right coronary artery stent placement yesterday. 4. Hypertension 5. Congestive heart failure, now improved 6. Respiratory failure due to #3 and #5 above 7. Hyperlipidemia. Consultation Date/Type/Reason Admit Date/Time Aug 23, 2018 at 15:55 Initial Consult Date 08/23/18 Type of Consult Nephrology Requesting Provider: CHRISTEN CLARK NP Date/Time of Note DATE: 08/25/18 TIME: 08:09 24 HR Interval Summary Free Text/Dictation This patient is being seen in nephrologic follow-up. He has end-stage renal disease. He underwent a coronary angiogram yesterday and had a stent placed in the right coronary artery. He had dialysis yesterday. Today is his day for routine dialysis. Constitutional: no complaints, improved Exam/Review of Systems Exam Vitals Vital Signs Date Temp Pulse Resp B/P (MAP) Pulse Ox O2 O2 Flow FiO2 Time Delivery Rate 08/25/18 Nasal 3.0 07:59 Cannula 08/25/18 98.3 76 20 161/74 99 07:08 (103) 08/23/18 40 11:13 Intake and Output 08/24/18 08/24/18 08/25/18 1515:00 23:00 07:00 IntakeIntake Total 350 ml OutputOutput Total 2800 ml BalanceBalance -2450 ml Constitutional: alert, oriented, well developed Respiratory: clear to auscultation, normal air movement Cardiovascular: regular rate and rhythm Gastrointestinal: soft, non-tender Musculoskeletal: nl extremities to inspection Results Result Diagram: 08/25/18 0521 08/25/18 0521 Results 24hrs Laboratory Tests Test 08/24/18 14:43 08/25/18 05:21 Bedside Glucose 144 White Blood Count 7.9 Red Blood Count 3.05 #L Hemoglobin 9.1 #L Hematocrit 28.0 #L Mean Corpuscular Volume 91.8 Mean Corpuscular Hemoglobin 29.8 Mean Corpuscular Hemoglobin Concent 32.5 Red Cell Distribution Width 15.5 H Platelet Count 206 Mean Platelet Volume 11.4 H Immature Granulocytes % 0.300 Neutrophils % 69.9 Lymphocytes % 11.8 L Monocytes % 10.2 Eosinophils % 6.8 Basophils % 1.0 Nucleated Red Blood Cells % 0.0 Immature Granulocytes # 0.020 Neutrophils # 5.5 Lymphocytes # 0.9 Monocytes # 0.8 Eosinophils # 0.5 Basophils # 0.1 Nucleated Red Blood Cells # 0.0 Sodium Level 141 Potassium Level 4.7 Chloride Level 106 Carbon Dioxide Level 26 Anion Gap 9 Blood Urea Nitrogen 27 H Creatinine 4.80 #H Est Glomerular Filtrat Rate mL/min 12 L Glucose Level 83 Calcium Level 8.7 Creatine Kinase 112 Creatine Kinase Index 7.2 Creatinine Kinase MB (Mass) 8.06 H Troponin I 2.020 *H Medications Medication Current Medications Atorvastatin Calcium (Lipitor) 80 mg QHS PO Last administered on 08/25/18at 00:17; Admin Dose 80 MG; Start 08/23/18 at 21:00 Carvedilol (Coreg) 12.5 mg BID PO Last administered on 08/25/18at 00:19; Admin Dose 12.5 MG; Start 08/23/18 at 21:00 Cholecalciferol (Vitamin D) 5,000 unit DAILY PO ; Start 08/24/18 at 09:00 Losartan Potassium (Cozaar) 50 mg DAILY PO ; Start 08/24/18 at 09:00 Nifedipine (Procardia Xl) 30 mg DAILY PO ; Start 08/24/18 at 09:00 IV Flush (NS 3 ml) 3 ml PER PROTOCOL IV ; Start 08/23/18 at 15:30 Ondansetron HCl (Zofran Inj) 4 mg Q6H PRN IV NAUSEA/VOMITING; Start 08/23/18 at 15:30 Acetaminophen (Tylenol Supp) 650 mg Q6H PRN [place] .PAIN 1-3 OR TEMP; Start 08/23/18 at 15:30 Famotidine (Pepcid) 20 mg Q12 PO Last administered on 08/25/18at 00:18; Admin Dose 20 MG; Start 08/23/18 at 21:00 Ceftriaxone Sodium 50 ml @ 100 mls/hr Q24H IVPB Last administered on 08/24/18at 16:49; Admin Dose 100 MLS/HR; Start 08/23/18 at 15:30 Albuterol/ Ipratropium (Duoneb) 3 ml Q4H RESP THERAPY HHN Last administered on 08/25/18at 05:12; Admin Dose 3 ML; Start 08/23/18 at 17:00 Miscellaneous Information 1 ea NOTE XX ; Start 08/23/18 at 15:30 Glucose (Glutose) 15 gm Q15M PRN PO DECREASED GLUCOSE; Start 08/23/18 at 15:30 Glucose (Glutose) 22.5 gm Q15M PRN PO DECREASED GLUCOSE; Start 08/23/18 at 15:30 Dextrose (D50w Syringe) 25 ml Q15M PRN IV DECREASED GLUCOSE; Start 08/23/18 at 15:30 Dextrose (D50w Syringe) 50 ml Q15M PRN IV DECREASED GLUCOSE; Start 08/23/18 at 15:30 Glucagon (Glucagen) 1 mg Q15M PRN IM DECREASED GLUCOSE; Start 08/23/18 at 15:30 Glucose (Glutose) 15 gm Q15M PRN BUCCAL DECREASED GLUCOSE; Start 08/23/18 at 15:30 Aspirin (Halfprin) 81 mg DAILY PO Last administered on 08/24/18at 01:37; Admin Dose 81 MG; Start 08/23/18 at 18:00 Heparin Sodium (Porcine) (Heparin (1000 Units/ml)) 4,800 unit PRN PRN CATHETER Dialysis Last administered on 08/24/18at 22:25; Admin Dose 4,800 UNIT; Start 08/23/18 at 18:30 Clopidogrel Bisulfate (plaVIX) 75 mg DAILY PO ; Start 08/25/18 at 09:00 Acetaminophen (Tylenol Tab) 650 mg Q4H PRN PO PAIN Last administered on 08/24/18at 13:18; Admin Dose 650 MG; Start 08/24/18 at 08:30 Oxycodone/ Acetaminophen (Percocet (5/ 325)) 1 tab Q4H PRN PO NON-CARDIAC MODERATE PAIN 4-7; Start 08/24/18 at 08:30 Morphine Sulfate (morphine) 1 mg Q1H PRN IV SEVERE PAIN 7-10 Last administered on 08/24/18at 10:59; Admin Dose 1 MG; Start 08/24/18 at 08:30 Epoetin Maxi (Epogen (Esrd)) [facility] ; Start 08/26/18 at 17:00 CHANDLER LIMA MD Aug 25, 2018 08:15
--- NOTE | 2018-08-25 09:13 | CONS ---
Consult Date/Type/Reason Admit Date/Time Aug 23, 2018 at 15:55 Initial Consult Date 08/23/18 Type of Consultation: cv Requesting Provider: CHRISTEN CLARK NP Date/Time of Note DATE: 08/25/18 TIME: 09:08 Subjective Interventional cardiology follow-up progress note Subjective: Case discussed with the staff telemetry was reviewed. Patient status post hemodialysis August 2308/24 Breathing has significantly improved but still has KIRKPATRICK. No chest pain at the moment. He denies any active bleeding to me S/P PCI RCA 08/24 no groin pain Objective: General: no acute distress HEENT: NC/AT. pupils are equal. round. NECK: NO JVD. no stridor. CV: RRR. systolic murmur; no gallop or rubs. PULM: no wheezing + rhonchi at the base. GI: SOFT, NT, ND, no rebound or guarding Extremity: trace B/L LE edema. no clubbing. neuro: awake and alert, OX3. Psych: calm and pleasant rectal: deferred vascular right femoral with no bleeding hematoma or bruit EKG shows normal sinus rhythm ST-T wave abnormalities inferolateral ischemia versus LVH and strain Echocardiogram was also personally reviewed which shows: cavity size. Moderate concentric left ventricular hypertrophy. Ejection fraction is visually estimated at 65 %. Tissue Doppler/Mitral Doppler indices are consistent with impaired relaxation (Stage I diastolic dysfunction). There is moderate enlargement of left atrium. Mild mitral leaflet calcification. Moderate mitral annular calcification. Trace mitral regurgitation. Normal appearance of the aortic valve. No significant aortic stenosis or insufficiency. Normal appearance of the tricuspid valve. Estimated peak PA systolic pressure 43 mmHg. There is trace tricuspid regurgitation. Objective Vitals Vital Signs Date Temp Pulse Resp B/P (MAP) Pulse Ox O2 O2 Flow FiO2 Time Delivery Rate 08/25/18 Nasal 3.0 07:59 Cannula 08/25/18 98.3 76 20 161/74 99 07:08 (103) 08/23/18 40 11:13 Intake and Output 08/24/18 08/24/18 08/25/18 1515:00 23:00 07:00 IntakeIntake Total 350 ml OutputOutput Total 2800 ml BalanceBalance -2450 ml Results/Medications Result Diagram: 08/25/18 0508/25/18520 Results 24 hrs Laboratory Tests Test 08/24/18 14:43 08/25/18 05:21 Bedside Glucose 144 White Blood Count 7.9 Red Blood Count 3.05 #L Hemoglobin 9.1 #L Hematocrit 28.0 #L Mean Corpuscular Volume 91.8 Mean Corpuscular Hemoglobin 29.8 Mean Corpuscular Hemoglobin Concent 32.5 Red Cell Distribution Width 15.5 H Platelet Count 206 Mean Platelet Volume 11.4 H Immature Granulocytes % 0.300 Neutrophils % 69.9 Lymphocytes % 11.8 L Monocytes % 10.2 Eosinophils % 6.8 Basophils % 1.0 Nucleated Red Blood Cells % 0.0 Immature Granulocytes # 0.020 Neutrophils # 5.5 Lymphocytes # 0.9 Monocytes # 0.8 Eosinophils # 0.5 Basophils # 0.1 Nucleated Red Blood Cells # 0.0 Sodium Level 141 Potassium Level 4.7 Chloride Level 106 Carbon Dioxide Level 26 Anion Gap 9 Blood Urea Nitrogen 27 H Creatinine 4.80 #H Est Glomerular Filtrat Rate mL/min 12 L Glucose Level 83 Calcium Level 8.7 Creatine Kinase 112 Creatine Kinase Index 7.2 Creatinine Kinase MB (Mass) 8.06 H Troponin I 2.020 *H Home Meds Reported Medications Atorvastatin* (Atorvastatin*) 80 Mg Tablet, 80 MG PO QHS, #30 TAB 08/23/18 Losartan Potassium* (Losartan Potassium*) 50 Mg Tablet, 50 MG PO DAILY, TAB 08/23/18 Minoxidil* (Lonitin*) 2.5 Mg Tab, 2.5 MG PO DAILY, TAB 08/23/18 Furosemide* (Furosemide*) 40 Mg Tablet, 40 MG PO DAILY, TAB 08/23/18 Carvedilol* (Carvedilol*) 12.5 Mg Tablet, 12.5 MG PO BID, #60 TAB 08/23/18 Cholecalciferol (Vitamin D3) 5,000 Unit Tablet, 5000 UNIT PO DAILY, TAB 08/23/18 Nifedipine* (Nifedipine ER*) 30 Mg Tablet.sa, 30 MG PO DAILY, TAB.SA 08/23/18 Bumetanide* (Bumetanide*) 1 Mg Tablet, 1 MG PO DAILY, TAB 08/23/18 Albuterol Sulfate* (Ventolin HFA*) 18 Gm Hfa.aer.ad, 2 PUFF INHALATION Q4H, #1 INHALER 08/23/18 Ciprofloxacin Hcl* (Ciprofloxacin Hcl*) 500 Mg Tablet, 500 MG PO DAILY, #14 TAB STARTED ON 08-18-18 FOR 14 DAYS 08/23/18 Discontinued Reported Medications Tramadol HCl (Tramadol HCl) 50 Mg Tab, 50 MG PO Q6H PRN for PAIN, TAB 01/13/14 Amlodipine Besylate* (Amlodipine Besylate*) 10 Mg Tablet, 10 MG PO DAILY, TAB 01/13/14 Clopidogrel Bisulfate (Clopidogrel) 75 Mg Tablet, 75 MG PO DAILY, TAB 01/13/14 Calcium Acetate (Calcium Acetate) 667 Mg Tablet, 667 MG PO DAILY, TAB 01/13/14 Atenolol* (Atenolol*) 25 Mg Tablet, 25 MG PO DAILY, TAB 01/13/14 Simvastatin (Simvastatin) 20 Mg Tablet, 20 MG PO HS, TAB 01/13/14 Aspirin (Aspirin) 325 Mg Tablet.dr, 325 MG PO 01/13/14 Ferrous Sulfate (Ferrous Sulfate) 324 Mg Tabsr, 324 MG PO BID 01/13/14 [Isosorbide] No Conflict Check, 10 MG PO TID 01/13/14 Febuxostat* (Uloric*) 80 Mg Tablet, 80 MG PO DAILY, TAB 01/13/14 Losartan Potassium* (Losartan Potassium*) 50 Mg Tablet, 50 MG PO DAILY, TAB 01/13/14 [Baclofen] No Conflict Check, 10 MG PO BID 01/13/14 Carvedilol* (Carvedilol*) 25 Mg Tablet, 3.125 MG PO DAILY 05/10/13 Famotidine* (Pepcid*) 20 Mg Tablet, 20 MG PO DAILY 05/10/13 Medications Current Medications Atorvastatin Calcium (Lipitor) 80 mg QHS PO Last administered on 08/25/18at 00:17; Admin Dose 80 MG; Start 08/23/18 at 21:00 Carvedilol (Coreg) 12.5 mg BID PO Last administered on 08/25/18at 08:11; Admin Dose 12.5 MG; Start 08/23/18 at 21:00 Cholecalciferol (Vitamin D) 5,000 unit DAILY PO Last administered on 08/25/18at 08:10; Admin Dose 5,000 UNIT; Start 08/24/18 at 09:00 Losartan Potassium (Cozaar) 50 mg DAILY PO Last administered on 08/25/18at 08:12; Admin Dose 50 MG; Start 08/24/18 at 09:00 Nifedipine (Procardia Xl) 30 mg DAILY PO Last administered on 08/25/18at 08:11; Admin Dose 30 MG; Start 08/24/18 at 09:00 IV Flush (NS 3 ml) 3 ml PER PROTOCOL IV ; Start 08/23/18 at 15:30 Ondansetron HCl (Zofran Inj) 4 mg Q6H PRN IV NAUSEA/VOMITING; Start 08/23/18 at 15:30 Acetaminophen (Tylenol Supp) 650 mg Q6H PRN [place] .PAIN 1-3 OR TEMP; Start 08/23/18 at 15:30 Famotidine (Pepcid) 20 mg Q12 PO Last administered on 08/25/18at 08:11; Admin Dose 20 MG; Start 08/23/18 at 21:00 Ceftriaxone Sodium 50 ml @ 100 mls/hr Q24H IVPB Last administered on 08/24/18at 16:49; Admin Dose 100 MLS/HR; Start 08/23/18 at 15:30 Albuterol/ Ipratropium (Duoneb) 3 ml Q4H RESP THERAPY HHN Last administered on 08/25/18at 05:12; Admin Dose 3 ML; Start 08/23/18 at 17:00 Miscellaneous Information 1 ea NOTE XX ; Start 08/23/18 at 15:30 Glucose (Glutose) 15 gm Q15M PRN PO DECREASED GLUCOSE; Start 08/23/18 at 15:30 Glucose (Glutose) 22.5 gm Q15M PRN PO DECREASED GLUCOSE; Start 08/23/18 at 15:30 Dextrose (D50w Syringe) 25 ml Q15M PRN IV DECREASED GLUCOSE; Start 08/23/18 at 15:30 Dextrose (D50w Syringe) 50 ml Q15M PRN IV DECREASED GLUCOSE; Start 08/23/18 at 15:30 Glucagon (Glucagen) 1 mg Q15M PRN IM DECREASED GLUCOSE; Start 08/23/18 at 15:30 Glucose (Glutose) 15 gm Q15M PRN BUCCAL DECREASED GLUCOSE; Start 08/23/18 at 15:30 Aspirin (Halfprin) 81 mg DAILY PO Last administered on 08/25/18at 08:11; Admin Dose 81 MG; Start 08/23/18 at 18:00 Heparin Sodium (Porcine) (Heparin (1000 Units/ml)) 4,800 unit PRN PRN CATHETER Dialysis Last administered on 08/24/18at 22:25; Admin Dose 4,800 UNIT; Start 08/23/18 at 18:30 Clopidogrel Bisulfate (plaVIX) 75 mg DAILY PO Last administered on 08/25/18at 0 8:11; Admin Dose 75 MG; Start 08/25/18 at 09:00 Acetaminophen (Tylenol Tab) 650 mg Q4H PRN PO PAIN Last administered on 08/24/18at 13:18; Admin Dose 650 MG; Start 08/24/18 at 08:30 Oxycodone/ Acetaminophen (Percocet (5/ 325)) 1 tab Q4H PRN PO NON-CARDIAC MODERATE PAIN 4-7; Start 08/24/18 at 08:30 Morphine Sulfate (morphine) 1 mg Q1H PRN IV SEVERE PAIN 7-10 Last administered on 08/24/18at 10:59; Admin Dose 1 MG; Start 08/24/18 at 08:30 Epoetin Maxi (Epogen (Esrd)) 10,000 units TuThSa@17 SC ; Start 08/26/18 at 17:00 Assessment/Plan Hospital Course (Demo Recall) 1. abnormal and increasing troponin and chest pain consistent with NSTEMI : Status post PCI of the right coronary artery 2. Fluid overload/congestive heart failure secondary to fluid overload and d iastolic heart failure 3. Multivessel coronary artery disease 4. Hypertension with hypertensive heart disease 5. Renal failure on dialysis 6. Dyslipidemia 7. Anemia Recommendations: CONT BP control . We will increase Coreg to 25 twice daily. We will try to get the old records Continue the beta-liu and increase as needed/tolerated Hemodialysis has been arranged by renal ASA daily statin We will check the stool guaiac. If H&H remains stable DC planning for tomorrow Patient has been scheduled to see me in the office on SEPTEMBER 02 at 2:15 pm With the use of hr clerk I tried to explain to the patient in detail the nature of his disease including his NH and PCI. He stated he understood. Importance of compliant with aspirin and Plavix per explained to the patient extensively. Prescription has been given to be sent to the pharmacy to fill it and prior to discharge. Thank you for this referral. We will continue to follow along with you SOUTH AMAYA MD [facility] SOUTH AMAYA MD Aug 25, 2018 09:13
--- NOTE | 2018-08-25 10:40 | PN ---
Date/Time of Note Date/Time of Note DATE: 08/25/18 TIME: 10:35 Assessment/Plan VTE Prophylaxis Risk score (from Ns)>0 risk: 4 SCD applied (from Ns): Yes Pharmacological prophylaxis: NA/contraindicated Pharm contraindication: other (asa/plavix) Lines/Catheters [facility] Perma cath Urinary Cath still in place: No Assessment/Plan Hospital Course SUBJECTIVE: No acute overnight episodes. OBJECTIVE: Vital signs-see below PHYSICAL EXAM: Constitutional: [place]olan-speaking male, not in acute distress. Psych: nl mood/affect, no complaints Head: atraumatic, normocephalic Eyes: nl conjunctiva, nl sclera ENMT: mucosa pink and moist, nl external ears & nose Neck: non-tender, supple Respiratory: Crackles bilaterally-improved. increased work of breathing. Cardiovascular: nl pulses, regular rate and rhythm Gastrointestinal: non-tender, soft, bowel sounds active in all 4 quadrants. Musculoskeletal/extremities: nl extremities to inspection, motor strength equal bilaterally, no focal deficit. Normal pulses,no cyanosis, no edema. Neurological:Alert oriented 3,nl speech, nl strength Skin: nl turgor ASSESSMENT/PLAN: 67-year-old male with ESRD, on hemodialysis Thursday, Thursday, Thursday, dyslipidemia, hypertension, vitamin D deficiency, presented to the emergency room with worsening shortness of breath found to have NSTEMI/Resp fx requiring BiPAP 1. s/p Acute hypoxemic respiratory failure secondary to volume overload/CHF exacerbation/NSTEMI -stable -cont PRN bronchodilators,UF for volume removal 2.Acute decompensated diastolic congestive heart failure exacerbation 2/2 volume overload 2/2 ESRD -Clinically improving=>appreciate cards recs. -cont. ultrafiltration/HD -cont. BB/ARB 3.NSTEMI -s/p LHC/PCI to RCA 08/23 -cont.asa/Plavix/statin -f/u cards recs -monitor for bleeding in light of HH drop 4. ESRD, HD MWF -Access: Left IJ permacath-c/d/i -appreciate nephrology recs -Monitor renal function 5. Leukocytosis, likely reactive vs possible URI -RESOLVED -Stop IV antibiotics and will give doxycycline for another 5 days. 6.Hypertension -Stable blood pressure on current antihypertensive regimen. 7.Vitamin D deficiency. -CONT supplementation 10. Anemia of ESRD required blood transfusion with hemodialysis 08/24/2018 -Currently stable H&H - Epogen w/ hemodialysis per nephrology if indicated. -pending stool ob-no reported melena /hematochezia VT prophylaxis: SCDs/aspirin/Plavix PUD prophylaxis: Protonix CODE STATUS: Full code Diet: Renal/low chol diet disp:cont current management.discharge planning in next 24 hours if clinically stable/stable HH with outpatient cardiology and nephrology follow-up. He slava monterroso has cardiology outpatient follow-up set up. We also had filled his aspirin/Plavix prescription. Patient is seen in collaboration with Dr. Suarez. Result Diagram: 08/25/18 0521 08/25/18 0521 Results 24hrs Laboratory Tests Test 08/24/18 14:43 08/25/18 05:21 Bedside Glucose 144 White Blood Count 7.9 Red Blood Count 3.05 #L Hemoglobin 9.1 #L Hematocrit 28.0 #L Mean Corpuscular Volume 91.8 Mean Corpuscular Hemoglobin 29.8 Mean Corpuscular Hemoglobin Concent 32.5 Red Cell Distribution Width 15.5 H Platelet Count 206 Mean Platelet Volume 11.4 H Immature Granulocytes % 0.300 Neutrophils % 69.9 Lymphocytes % 11.8 L Monocytes % 10.2 Eosinophils % 6.8 Basophils % 1.0 Nucleated Red Blood Cells % 0.0 Immature Granulocytes # 0.020 Neutrophils # 5.5 Lymphocytes # 0.9 Monocytes # 0.8 Eosinophils # 0.5 Basophils # 0.1 Nucleated Red Blood Cells # 0.0 Sodium Level 141 Potassium Level 4.7 Chloride Level 106 Carbon Dioxide Level 26 Anion Gap 9 Blood Urea Nitrogen 27 H Creatinine 4.80 #H Est Glomerular Filtrat Rate mL/min 12 L Glucose Level 83 Calcium Level 8.7 Creatine Kinase 112 Creatine Kinase Index 7.2 Creatinine Kinase MB (Mass) 8.06 H Troponin I 2.020 *H Exam/Review of Systems Exam Vitals Vital Signs Date Temp Pulse Resp B/P (MAP) Pulse Ox O2 O2 Flow FiO2 Time Delivery Rate 08/25/18 78 08:00 08/25/18 Nasal 3.0 07:59 Cannula 08/25/18 98.3 20 161/74 99 07:08 (103) 08/23/18 40 11:13 Intake and Output 3/08/24/18 08/25/18 1515:00 23:00 07:00 IntakeIntake Total 350 ml OutputOutput Total 2800 ml BalanceBalance -2450 ml Results Results 24hrs Laboratory Tests Test 08/24/18 14:43 08/25/18 05:21 Bedside Glucose 144 White Blood Count 7.9 Red Blood Count 3.05 #L Hemoglobin 9.1 #L Hematocrit 28.0 #L Mean Corpuscular Volume 91.8 Mean Corpuscular Hemoglobin 29.8 Mean Corpuscular Hemoglobin Concent 32.5 Red Cell Distribution Width 15.5 H Platelet Count 206 Mean Platelet Volume 11.4 H Immature Granulocytes % 0.300 Neutrophils % 69.9 Lymphocytes % 11.8 L Monocytes % 10.2 Eosinophils % 6.8 Basophils % 1.0 Nucleated Red Blood Cells % 0.0 Immature Granulocytes # 0.020 Neutrophils # 5.5 Lymphocytes # 0.9 Monocytes # 0.8 Eosinophils # 0.5 Basophils # 0.1 Nucleated Red Blood Cells # 0.0 Sodium Level 141 Potassium Level 4.7 Chloride Level 106 Carbon Dioxide Level 26 Anion Gap 9 Blood Urea Nitrogen 27 H Creatinine 4.80 #H Est Glomerular Filtrat Rate mL/min 12 L Glucose Level 83 Calcium Level 8.7 Creatine Kinase 112 Creatine Kinase Index 7.2 Creatinine Kinase MB (Mass) 8.06 H Troponin I 2.020 *H Medications Medication Current Medications Atorvastatin Calcium (Lipitor) 80 mg QHS PO Last administered on 08/25/18at 00:17; Admin Dose 80 MG; Start 08/23/18 at 21:00 Cholecalciferol (Vitamin D) 5,000 unit DAILY PO Last administered on 08/25/18at 08:10; Admin Dose 5,000 UNIT; Start 08/24/18 at 09:00 Losartan Potassium (Cozaar) 50 mg DAILY PO Last administered on 08/25/18at 08:12; Admin Dose 50 MG; Start 08/24/18 at 09:00 Nifedipine (Procardia Xl) 30 mg DAILY PO Last administered on 08/25/18at 08:11; Admin Dose 30 MG; Start 08/24/18 at 09:00 IV Flush (NS 3 ml) 3 ml PER PROTOCOL IV ; Start 08/23/18 at 15:30 Ondansetron HCl (Zofran Inj) 4 mg Q6H PRN IV NAUSEA/VOMITING; Start 08/23/18 at 15:30 Acetaminophen (Tylenol Supp) 650 mg Q6H PRN [place] .PAIN 1-3 OR TEMP; Start 08/23/18 at 15:30 Famotidine (Pepcid) 20 mg Q12 PO Last administered on 08/25/18at 08:11; Admin Dose 20 MG; Start 08/23/18 at 21:00 Ceftriaxone Sodium 50 ml @ 100 mls/hr Q24H IVPB Last administered on 08/24/18at 16:49; Admin Dose 100 MLS/HR; Start 08/23/18 at 15:30 Albuterol/ Ipratropium (Duoneb) 3 ml Q4H RESP THERAPY HHN Last administered on 08/25/18at 09:55; Admin Dose 3 ML; Start 08/23/18 at 17:00 Miscellaneous Information 1 ea NOTE XX ; Start 08/23/18 at 15:30 Glucose (Glutose) 15 gm Q15M PRN PO DECREASED GLUCOSE; Start 08/23/18 at 15:30 Glucose (Glutose) 22.5 gm Q15M PRN PO DECREASED GLUCOSE; Start 08/23/18 at 15:30 Dextrose (D50w Syringe) 25 ml Q15M PRN IV DECREASED GLUCOSE; Start 08/23/18 at 15:30 Dextrose (D50w Syringe) 50 ml Q15M PRN IV DECREASED GLUCOSE; Start 08/23/18 at 15:30 Glucagon (Glucagen) 1 mg Q15M PRN IM DECREASED GLUCOSE; Start 08/23/18 at 15:30 Glucose (Glutose) 15 gm Q15M PRN BUCCAL DECREASED GLUCOSE; Start 08/23/18 at 15:30 Aspirin (Halfprin) 81 mg DAILY PO Last administered on 08/25/18at 08:11; Admin Dose 81 MG; Start 08/23/18 at 18:00 Heparin Sodium (Porcine) (Heparin (1000 Units/ml)) 4,800 unit PRN PRN CATHETER Dialysis Last administered on 08/24/18at 22:25; Admin Dose 4,800 UNIT; Start 08/23/18 at 18:30 Clopidogrel Bisulfate (plaVIX) 75 mg DAILY PO Last administered on 08/25/18at 08:11; Admin Dose 75 MG; Start 08/25/18 at 09:00 Acetaminophen (Tylenol Tab) 650 mg Q4H PRN PO PAIN Last administered on 08/24/18at 13:18; Admin Dose 650 MG; Start 08/24/18 at 08:30 Oxycodone/ Acetaminophen (Percocet (5/ 325)) 1 tab Q4H PRN PO NON-CARDIAC MODERATE PAIN 4-7; Start 08/24/18 at 08:30 Morphine Sulfate (morphine) 1 mg Q1H PRN IV SEVERE PAIN 7-10 Last administered on 08/24/18at 10:59; Admin Dose 1 MG; Start 08/24/18 at 08:30 Epoetin Maxi (Epogen (Esrd)) 10,000 units TuThSa@17 SC ; Start 08/26/18 at 17:00 Carvedilol (Coreg) 25 mg BID PO ; Start 08/25/18 at 21:00 CHRISTEN CLARK NP Aug 25, 2018 10:40
--- NOTE | 2018-08-25 14:36 | CONS ---
DATE OF ADMISSION: 08/23/2018 DATE OF CONSULTATION: TYPE OF CONSULTATION: Pulmonary. REASON FOR CONSULTATION: Shortness of breath. Thank you, Dr. Albright, for this consultation. HISTORY OF PRESENT ILLNESS: This is a 67-year-old gentleman with history of end-stage renal failure on hemodialysis, came in with several-day history of increasing shortness of breath, orthopnea, PND. Chest x-ray is demonstrating volume overload. Initially requiring supplemental O2 and noninvasive p ositive pressure ventilation, now status post hemodialysis with volume removal and improvement in res piratory status. PAST MEDICAL HISTORY: 1. Congestive heart failure. 2. End-stage renal failure, on hemodialysis. 3. Likely obstructive sleep apnea. 4. History of coronary artery disease, status PCI to RCA. 5. Essential hypertension. MEDICATIONS: Per chart. ALLERGIES: NONE. SOCIAL HISTORY: He is a nonsmoker. No alcohol, no history of drug use. FAMILY HISTORY: Noncontributory. SYSTEMS REVIEW: A 12-point review of systems was negative other than that mentioned above. PHYSICAL EXAMINATION: GENERAL: Well-nourished, well-developed gentleman, comfortable at rest, in no acute distress. VITAL SIGNS: Currently afebrile, pulse is 76, blood pressure 180/72, O2 saturation 96% on 2 liters n ashley cannula. NECK: Supple. No JVD or lymphadenopathy. CARDIAC: S1, S2. No added sounds or murmurs. CHEST: Diminished air entry at both bases. ABDOMEN: Obese, soft, nontender. No guarding or rebound. EXTREMITIES: No cyanosis, clubbing. A 1+ edema. NEUROLOGIC: Generalized weakness. LABORATORIES: White count now is 7.9, hemoglobin 9.1, platelets 206. Chemistry: BUN 27, creatinine 4.8. INR 1.13. DIAGNOSTIC STUDIES: Chest x-ray shows marked improvement in pulmonary edema. IMPRESSION AND PLAN: 1. Acute hypoxemic respiratory failure, likely secondary to volume overload. 2. End-stage renal failure, on hemodialysis. 3. Probable underlying obstructive sleep apnea. 4. History of coronary artery disease. 5. History of essential hypertension. RECOMMENDATIONS: 1. Continue hemodialysis with volume removal. 2. Decrease O2 as tolerated. 3. Encourage out of bed. 4. Outpatient pulmonary function testing and sleep study. 5. Follow up with me. Dictated By: JACIEL CALZADA/NTS Conf#: [id number] DID#: [id number] CC: CHANDLER LIMA MD; FLORA ZAVALA;*[facility]*
[2018-08-25] MEDS ORDERED: hydrALAzine 20 MG INJ IV PRN (16:00)
[2018-08-25] MEDS: CEFTRIAXONE 1 GM/50 ML (PMX) 50 ML IVPB SCH (16:20)
[2018-08-26] VITALS (8 sets, daily range): BP systolic 143–163; BP diastolic 65–80; PULSE 64–78; RESP 18
[2018-08-26] MEDS: ALBUTEROL/IPRATROPIUM (NEB) 3 ML AMP HHN SCH ×3 (00:16→09:44)
[2018-08-26] MEDS: NIFEdipine (XL) 30 MG TAB PO SCH (08:15)
[2018-08-26] MEDS: CLOPIDOGREL 75 MG TAB PO SCH (08:15)
[2018-08-26] MEDS: CHOLECALCIFEROL 1,000 UNIT TAB PO SCH (08:15)
[2018-08-26] MEDS: FAMOTIDINE 20 MG TAB PO SCH (08:16)
[2018-08-26] MEDS: LOSARTAN 50 MG TAB PO SCH (08:16)
[2018-08-26] MEDS: ASPIRIN (EC) 81 MG TAB PO SCH (08:16)
--- NOTE | 2018-08-26 08:42 | CONS ---
Consult Date/Type/Reason Admit Date/Time Aug 23, 2018 at 15:55 Initial Consult Date 08/23/18 Type of Consultation: cv Requesting Provider: CHRISTEN CLARK NP Date/Time of Note DATE: 08/26/18 TIME: 08:41 Subjective Interventional cardiology follow-up progress note Subjective: Case discussed with the staff telemetry was reviewed. d/w physician Patient status post hemodialysis August 2308/24 Breathing has significantly improved but still has KIRKPATRICK. No chest pain at the moment. He denies any active bleeding to me S/P PCI RCA 08/24 no groin pain Objective: General: no acute distress HEENT: NC/AT. pupils are equal. round. NECK: NO JVD. no stridor. CV: RRR. systolic murmur; no gallop or rubs. PULM: no wheezing + rhonchi at the base. GI: SOFT, NT, ND, no rebound or guarding Extremity: trace B/L LE edema. no clubbing. neuro: awake and alert, OX3. Psych: calm and pleasant rectal: deferred vascular right femoral with no bleeding hematoma or bruit EKG shows normal sinus rhythm ST-T wave abnormalities inferolateral ischemia versus LVH and strain Echocardiogram was also personally reviewed which shows: cavity size. Moderate concentric left ventricular hypertrophy. Ejection fraction is visually estimated at 65 %. Tissue Doppler/Mitral Doppler indices are consistent with impaired relaxation (Stage I diastolic dysfunction). There is moderate enlargement of left atrium. Mild mitral leaflet calcification. Moderate mitral annular calcification. Trace mitral regurgitation. Normal appearance of the aortic valve. No significant aortic stenosis or insufficiency. Normal appearance of the tricuspid valve. Estimated peak PA systolic pressure 43 mmHg. There is trace tricuspid regurgitation. Objective Vitals Vital Signs Date Temp Pulse Resp B/P (MAP) Pulse Ox O2 O2 Flow FiO2 Time Delivery Rate 08/26/18 78 08:28 08/26/18 Nasal 2.0 07:45 Cannula 08/26/18 98.3 18 163/80 98 07:30 (107) 08/25/18 30 09:55 Intake and Output 08/25/18 08/25/18 08/26/18 1414:59 22:59 06:59 IntakeIntake Total 1100 ml 450 ml OutputOutput Total 30884 ml BalanceBalance -93574 ml 1100 ml 450 ml Results/Medications Result Diagram: 08/26/18 9164 08/26/18 0508 Results 24 hrs Laboratory Tests Test 08/26/18 05:08 White Blood Count 6.9 Red Blood Count 2.87 L Hemoglobin 8.7 L Hematocrit 26.1 L Mean Corpuscular Volume 90.9 Mean Corpuscular Hemoglobin 30.3 Mean Corpuscular Hemoglobin Concent 33.3 Red Cell Distribution Width 14.8 H Platelet Count 173 Mean Platelet Volume 11.4 H Immature Granulocytes % 0.300 Neutrophils % 62.5 Lymphocytes % 14.3 L Monocytes % 13.5 H Eosinophils % 8.7 H Basophils % 0.7 Nucleated Red Blood Cells % 0.0 Immature Granulocytes # 0.020 Neutrophils # 4.3 Lymphocytes # 1.0 Monocytes # 0.9 Eosinophils # 0.6 H Basophils # 0.1 Nucleated Red Blood Cells # 0.0 Sodium Level 140 Potassium Level 4.1 Chloride Level 97 Carbon Dioxide Level 29 Anion Gap 14 H Blood Urea Nitrogen 30 H Creatinine 4.55 H Est Glomerular Filtrat Rate mL/min 13 L Glucose Level 89 Calcium Level 8.2 L Total Bilirubin 0.4 Direct Bilirubin 0.00 Indirect Bilirubin 0.4 Aspartate Amino Transf (AST/SGOT) 29 Alanine Aminotransferase (ALT/SGPT) 34 Alkaline Phosphatase 76 Creatine Kinase 74 Creatine Kinase Index 4.4 Creatinine Kinase MB (Mass) 3.25 H Troponin I 2.720 *H Total Protein 6.3 Albumin 3.4 Globulin 2.90 Albumin/Globulin Ratio 1.17 Home Meds Reported Medications Atorvastatin* (Atorvastatin*) 80 Mg Tablet, 80 MG PO QHS, #30 TAB 08/23/18 Losartan Potassium* (Losartan Potassium*) 50 Mg Tablet, 50 MG PO DAILY, TAB 08/23/18 Minoxidil* (Lonitin*) 2.5 Mg Tab, 2.5 MG PO DAILY, TAB 08/23/18 Furosemide* (Furosemide*) 40 Mg Tablet, 40 MG PO DAILY, TAB 08/23/18 Carvedilol* (Carvedilol*) 12.5 Mg Tablet, 12.5 MG PO BID, #60 TAB 08/23/18 Cholecalciferol (Vitamin D3) 5,000 Unit Tablet, 5000 UNIT PO DAILY, TAB 08/23/18 Nifedipine* (Nifedipine ER*) 30 Mg Tablet.sa, 30 MG PO DAILY, TAB.SA 08/23/18 Bumetanide* (Bumetanide*) 1 Mg Tablet, 1 MG PO DAILY, TAB 08/23/18 Albuterol Sulfate* (Ventolin HFA*) 18 Gm Hfa.aer.ad, 2 PUFF INHALATION Q4H, #1 INHALER 08/23/18 Ciprofloxacin Hcl* (Ciprofloxacin Hcl*) 500 Mg Tablet, 500 MG PO DAILY, #14 TAB STARTED ON 08-18-18 FOR 14 DAYS 08/23/18 Discontinued Reported Medications Tramadol HCl (Tramadol HCl) 50 Mg Tab, 50 MG PO Q6H PRN for PAIN, TAB 01/13/14 Amlodipine Besylate* (Amlodipine Besylate*) 10 Mg Tablet, 10 MG PO DAILY, TAB 01/13/14 Clopidogrel Bisulfate (Clopidogrel) 75 Mg Tablet, 75 MG PO DAILY, TAB 01/13/14 Calcium Acetate (Calcium Acetate) 667 Mg Tablet, 667 MG PO DAILY, TAB 01/13/14 Atenolol* (Atenolol*) 25 Mg Tablet, 25 MG PO DAILY, TAB 01/13/14 Simvastatin (Simvastatin) 20 Mg Tablet, 20 MG PO HS, TAB 01/13/14 Aspirin (Aspirin) 325 Mg Tablet.dr, 325 MG PO 01/13/14 Ferrous Sulfate (Ferrous Sulfate) 324 Mg Tabsr, 324 MG PO BID 01/13/14 [Isosorbide] No Conflict Check, 10 MG PO TID 01/13/14 Febuxostat* (Uloric*) 80 Mg Tablet, 80 MG PO DAILY, TAB 01/13/14 Losartan Potassium* (Losartan Potassium*) 50 Mg Tablet, 50 MG PO DAILY, TAB 01/13/14 [Baclofen] No Conflict Check, 10 MG PO BID 01/13/14 Carvedilol* (Carvedilol*) 25 Mg Tablet, 3.125 MG PO DAILY 05/10/13 Famotidine* (Pepcid*) 20 Mg Tablet, 20 MG PO DAILY 05/10/13 Medications Current Medications Atorvastatin Calcium (Lipitor) 80 mg QHS PO Last administered on 08/25/18at 22:16; Admin Dose 80 MG; Start 08/23/18 at 21:00 Cholecalciferol (Vitamin D) 5,000 unit DAILY PO Last administered on 08/26/18at 08:15; Admin Dose 5,000 UNIT; Start 08/24/18 at 09:00 Losartan Potassium (Cozaar) 50 mg DAILY PO Last administered on 08/26/18at 08:16; Admin Dose 50 MG; Start 08/24/18 at 09:00 Nifedipine (Procardia Xl) 30 mg DAILY PO Last administered on 08/26/18at 08:15; Admin Dose 30 MG; Start 08/24/18 at 09:00 IV Flush (NS 3 ml) 3 ml PER PROTOCOL IV ; Start 08/23/18 at 15:30 Ondansetron HCl (Zofran Inj) 4 mg Q6H PRN IV NAUSEA/VOMITING; Start 08/23/18 at 15:30 Acetaminophen (Tylenol Supp) 650 mg Q6H PRN [place] .PAIN 1-3 OR TEMP; Start 08/23/18 at 15:30 Famotidine (Pepcid) 20 mg Q12 PO Last administered on 08/26/18at 08:16; Admin Dose 20 MG; Start 08/23/18 at 21:00 Ceftriaxone Sodium 50 ml @ 100 mls/hr Q24H IVPB Last administered on 08/25/18at 16:20; Admin Dose 100 MLS/HR; Start 08/23/18 at 15:30 Albuterol/ Ipratropium (Duoneb) 3 ml Q4H RESP THERAPY HHN Last administered on 08/26/18at 04:27; Admin Dose 3 ML; Start 08/23/18 at 17:00 Miscellaneous Information 1 ea NOTE XX ; Start 08/23/18 at 15:30 Glucose (Glutose) 15 gm Q15M PRN PO DECREASED GLUCOSE; Start 08/23/18 at 15:30 Glucose (Glutose) 22.5 gm Q15M PRN PO DECREASED GLUCOSE; Start 08/23/18 at 15:30 Dextrose (D50w Syringe) 25 ml Q15M PRN IV DECREASED GLUCOSE; Start 08/23/18 at 15:30 Dextrose (D50w Syringe) 50 ml Q15M PRN IV DECREASED GLUCOSE; Start 08/23/18 at 15:30 Glucagon (Glucagen) 1 mg Q15M PRN IM DECREASED GLUCOSE; Start 08/23/18 at 15:30 Glucose (Glutose) 15 gm Q15M PRN BUCCAL DECREASED GLUCOSE; Start 08/23/18 at 15:30 Aspirin (Halfprin) 81 mg DAILY PO Last administered on 08/26/18 08:16; Admin Dose 81 MG; Start 08/23/18 at 18:00 Heparin Sodium (Porcine) (Heparin (1000 Units/ml)) 4,800 unit PRN PRN CATHETER Dialysis Last administered on 08/24/18at 22:25; Admin Dose 4,800 UNIT; Start 08/23/18 at 18:30 Clopidogrel Bisulfate (plaVIX) 75 mg DAILY PO Last administered on 08/26/18 08:15; Admin Dose 75 MG; Start 08/25/18 at 09:00 Acetaminophen (Tylenol Tab) 650 mg Q4H PRN PO PAIN Last administered on 08/24/18at 13:18; Admin Dose 650 MG; Start 08/24/18 at 08:30 Oxycodone/ Acetaminophen (Percocet (5/ 325)) 1 tab Q4H PRN PO NON-CARDIAC MODERATE PAIN 4-7; Start 08/24/18 at 08:30 Morphine Sulfate (morphine) 1 mg Q1H PRN IV SEVERE PAIN 7-10 Last administered on 08/24/18at 10:59; Admin Dose 1 MG; Start 08/24/18 at 08:30 Epoetin Maxi (Epogen (Esrd)) 10,000 units TuThSa@17 SC ; Start 08/26/18 at 17:00 Carvedilol (Coreg) 25 mg BID PO Last administered on 08/26/18 08:16; Admin Dose 25 MG; Start 08/25/18 at 21:00 Hydralazine HCl (Apresoline) 10 mg Q6H PRN IV ELEVATED BLOOD PRESSURE Last administered on 08/25/18at 16:50; Admin Dose 10 MG; Start 08/25/18 at 16:00 Assessment/Plan Hospital Course (Demo Recall) 1. abnormal and increasing troponin and chest pain consistent with NSTEMI : Status post PCI of the right coronary artery 2. Fluid overload/congestive heart failure secondary to fluid overload and diastolic heart failure 3. Multivessel coronary artery disease 4. Hypertension with hypertensive heart disease 5. Renal failure on dialysis 6. Dyslipidemia 7. Anemia Recommendations: CONT BP control . We will cont Coreg to 25 twice daily. We will try to get the old records Continue the beta-liu and increase as needed/tolerated Hemodialysis has been arranged by renal ASA daily statin We will check the stool guaiac. 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 He stated he understood. Importance of compliant with aspirin and Plavix per explained to the patient extensively. Prescription has been given to be sent to the pharmacy to fill it and prior to discharge. Thank you for this referral. We will continue to follow along with you SOUTH AMAYA MD [facility] SOUTH AMAYA MD Aug 26, 2018 08:42
--- NOTE | 2018-08-26 09:12 | CONS ---
Assessment/Plan Assessment/Plan Hospital Course (Demo Recall) 1. End-stage renal disease on maintenance hemodialysis . He usually dialyzes Thursday and Thursday. He had a hemodialysis treatment yesterday. He could be discharged to home today. He will resume his routine hemodialysis treatments in the [facility] dialysis unit on 08/27/2018. 2. Anemia of chronic kidney disease , his hemoglobin is lower today. He is on Epogen. 3. coronary artery disease, status post left heart catheterization with right coronary artery stent placement yesterday. 4. Hypertension 5. Congestive heart failure, now improved, a chest x-ray done yesterday shows clearing of pulmonary edema. 6. Respiratory failure due to #3 and #5 above . Now resolved 7. Hyperlipidemia. Consultation Date/Type/Reason Admit Date/Time Aug 23, 2018 at 15:55 Initial Consult Date 08/23/18 Type of Consult Nephrology Requesting Provider: CHRISTEN CLARK NP Date/Time of Note DATE: 08/26/18 TIME: 09:06 24 HR Interval Summary Free Text/Dictation Alfa is being seen in nephrologic follow-up. He is feeling much better. He had hemodialysis yesterday. Constitutional: no complaints, improved Exam/Review of Systems Exam Vitals Vital Signs Date Temp Pulse Resp B/P (MAP) Pulse Ox O2 O2 Flow FiO2 Time Delivery Rate 08/26/18 78 08:28 08/26/18 Nasal 2.0 07:45 Cannula 08/26/18 98.3 18 163/80 98 07:30 (107) 08/25/18 30 09:55 Intake and Output 08/25/18 08/25/18 08/26/18 1515:00 23:00 07:00 IntakeIntake Total 1100 ml 450 ml OutputOutput Total 63827 ml BalanceBalance -63390 ml 1100 ml 450 ml Constitutional: alert, oriented, well developed Respiratory: clear to auscultation, normal air movement Cardiovascular: regular rate and rhythm Gastrointestinal: soft, non-tender Musculoskeletal: nl extremities to inspection Results Result Diagram: 08/26/18 0508 08/26/18 0508 Results 24hrs Laboratory Tests Test 08/26/18 05:08 White Blood Count 6.9 Red Blood Count 2.87 L Hemoglobin 8.7 L Hematocrit 26.1 L Mean Corpuscular Volume 90.9 Mean Corpuscular Hemoglobin 30.3 Mean Corpuscular Hemoglobin Concent 33.3 Red Cell Distribution Width 14.8 H Platelet Count 173 Mean Platelet Volume 11.4 H Immature Granulocytes % 0.300 Neutrophils % 62.5 Lymphocytes % 14.3 L Monocytes % 13.5 H Eosinophils % 8.7 H Basophils % 0.7 Nucleated Red Blood Cells % 0.0 Immature Granulocytes # 0.020 Neutrophils # 4.3 Lymphocytes # 1.0 Monocytes # 0.9 Eosinophils # 0.6 H Basophils # 0.1 Nucleated Red Blood Cells # 0.0 Sodium Level 140 Potassium Level 4.1 Chloride Level 97 Carbon Dioxide Level 29 Anion Gap 14 H Blood Urea Nitrogen 30 H Creatinine 4.55 H Est Glomerular Filtrat Rate mL/min 13 L Glucose Level 89 Calcium Level 8.2 L Total Bilirubin 0.4 Direct Bilirubin 0.00 Indirect Bilirubin 0.4 Aspartate Amino Transf (AST/SGOT) 29 Alanine Aminotransferase (ALT/SGPT) 34 Alkaline Phosphatase 76 Creatine Kinase 74 Creatine Kinase Index 4.4 Creatinine Kinase MB (Mass) 3.25 H Troponin I 2.720 *H Total Protein 6.3 Albumin 3.4 Globulin 2.90 Albumin/Globulin Ratio 1.17 Medications Medication Current Medications Atorvastatin Calcium (Lipitor) 80 mg QHS PO Last administered on 08/25/18at 22:16; Admin Dose 80 MG; Start 08/23/18 at 21:00 Cholecalciferol (Vitamin D) 5,000 unit DAILY PO Last administered on 08/26/18 08:15; Admin Dose 5,000 UNIT; Start 08/24/18 at 09:00 Losartan Potassium (Cozaar) 50 mg DAILY PO Last administered on 08/26/18at 08:16; Admin Dose 50 MG; Start 08/24/18 at 09:00 Nifedipine (Procardia Xl) 30 mg DAILY PO Last administered on 08/26/18 08:15; Admin Dose 30 MG; Start 08/24/18 at 09:00 IV Flush (NS 3 ml) 3 ml PER PROTOCOL IV ; Start 08/23/18 at 15:30 Ondansetron HCl (Zofran Inj) 4 mg Q6H PRN IV NAUSEA/VOMITING; Start 08/23/18 at 15:30 Acetaminophen (Tylenol Supp) 650 mg Q6H PRN [place] .PAIN 1-3 OR TEMP; Start 08/23/18 at 15:30 Famotidine (Pepcid) 20 mg Q12 PO Last administered on 08/26/18at 08:16; Admin Dose 20 MG; Start 08/23/18 at 21:00 Ceftriaxone Sodium 50 ml @ 100 mls/hr Q24H IVPB Last administered on 08/25/18at 16:20; Admin Dose 100 MLS/HR; Start 08/23/18 at 15:30 Albuterol/ Ipratropium (Duoneb) 3 ml Q4H RESP THERAPY HHN Last administered on 08/26/18at 04:27; Admin Dose 3 ML; Start 08/23/18 at 17:00 Miscellaneous Information 1 ea NOTE XX ; Start 08/23/18 at 15:30 Glucose (Glutose) 15 gm Q15M PRN PO DECREASED GLUCOSE; Start 08/23/18 at 15:30 Glucose (Glutose) 22.5 gm Q15M PRN PO DECREASED GLUCOSE; Start 08/23/18 at 15:30 Dextrose (D50w Syringe) 25 ml Q15M PRN IV DECREASED GLUCOSE; Start 08/23/18 at 15:30 Dextrose (D50w Syringe) 50 ml Q15M PRN IV DECREASED GLUCOSE; Start 08/23/18 at 15:30 Glucagon (Glucagen) 1 mg Q15M PRN IM DECREASED GLUCOSE; Start 08/23/18 at 15:30 Glucose (Glutose) 15 gm Q15M PRN BUCCAL DECREASED GLUCOSE; Start 08/23/18 at 15:30 Aspirin (Halfprin) 81 mg DAILY PO Last administered on 08/26/18at 08:16; Admin Dose 81 MG; Start 08/23/18 at 18:00 Heparin Sodium (Porcine) (Heparin (1000 Units/ml)) 4,800 unit PRN PRN CATHETER Dialysis Last administered on 08/24/18at 22:25; Admin Dose 4,800 UNIT; Start 08/23/18 at 18:30 Clopidogrel Bisulfate (plaVIX) 75 mg DAILY PO Last administered on 08/26/18at 0 8:15; Admin Dose 75 MG; Start 08/25/18 at 09:00 Acetaminophen (Tylenol Tab) 650 mg Q4H PRN PO PAIN Last administered on 08/24/18at 13:18; Admin Dose 650 MG; Start 08/24/18 at 08:30 Oxycodone/ Acetaminophen (Percocet (5/ 325)) 1 tab Q4H PRN PO NON-CARDIAC MODERATE PAIN 4-7; Start 08/24/18 at 08:30 Morphine Sulfate (morphine) 1 mg Q1H PRN IV SEVERE PAIN 7-10 Last administered on 08/24/18at 10:59; Admin Dose 1 MG; Start 08/24/18 at 08:30 Epoetin Maxi (Epogen (Esrd)) 10,000 units TuThSa@17 SC ; Start 08/26/18 at 17:00 Carvedilol (Coreg) 25 mg BID PO Last administered on 08/26/18at 08:16; Admin Do se 25 MG; Start 08/25/18 at 21:00 Hydralazine HCl (Apresoline) 10 mg Q6H PRN IV ELEVATED BLOOD PRESSURE Last administered on 08/25/18at 16:50; Admin Dose 10 MG; Start 08/25/18 at 16:00 CHANDLER LIMA MD Aug 26, 2018 09:12
--- NOTE | 2018-08-26 11:02 | CONS ---
Consult Date/Type/Reason Admit Date/Time Aug 23, 2018 at 15:55 Initial Consult Date 08/23/18 Type of Consult Pulmonary Requesting Provider: HCRISTEN CLARK NP Date/Time of Note DATE: 08/26/18 TIME: 11:02 Subjective Continues to slowly improve. Objective Vital Signs Date Temp Pulse Resp B/P (MAP) Pulse Ox O2 O2 Flow FiO2 Time Delivery Rate 08/26/18 96 3.0 09:48 08/26/18 69 20 Nasal 09:46 Cannula 08/26/18 98.3 163/80 07:30 (107) 08/25/18 30 09:55 Intake and Output 08/25/18 08/25/18 08/26/18 1414:59 22:59 06:59 IntakeIntake Total 1100 ml 450 ml OutputOutput Total 98250 ml BalanceBalance -06697 ml 1100 ml 450 ml Exam GENERAL: Well-nourished well-developed gentleman VITAL SIGNS: per chart NECK: Supple. No JVD or lymphadenopathy. CARDIAC EXAM: S1, S2. No added sounds or murmurs. CHEST: Diminished air entry at bases ABDOMEN: Soft, nontender. No guarding or rebound. EXTREMITIES: No cyanosis, clubbing or edema. NEUROLOGIC: Generalized weakness. No focal deficits. Vent Setting Fraction of Inspired Oxygen pe: 30 Results/Medications Result Diagram: 08/26/18 0508 08/26/18 0508 Results 24 hrs Laboratory Tests Test 08/26/18 05:08 White Blood Count 6.9 Red Blood Count 2.87 L Hemoglobin 8.7 L Hematocrit 26.1 L Mean Corpuscular Volume 90.9 Mean Corpuscular Hemoglobin 30.3 Mean Corpuscular Hemoglobin Concent 33.3 Red Cell Distribution Width 14.8 H Platelet Count 173 Mean Platelet Volume 11.4 H Immature Granulocytes % 0.300 Neutrophils % 62.5 Lymphocytes % 14.3 L Monocytes % 13.5 H Eosinophils % 8.7 H Basophils % 0.7 Nucleated Red Blood Cells % 0.0 Immature Granulocytes # 0.020 Neutrophils # 4.3 Lymphocytes # 1.0 Monocytes # 0.9 Eosinophils # 0.6 H Basophils # 0.1 Nucleated Red Blood Cells # 0.0 Sodium Level 140 Potassium Level 4.1 Chloride Level 97 Carbon Dioxide Level 29 Anion Gap 14 H Blood Urea Nitrogen 30 H Creatinine 4.55 H Est Glomerular Filtrat Rate mL/min 13 L Glucose Level 89 Calcium Level 8.2 L Total Bilirubin 0.4 Direct Bilirubin 0.00 Indirect Bilirubin 0.4 Aspartate Amino Transf (AST/SGOT) 29 Alanine Aminotransferase (ALT/SGPT) 34 Alkaline Phosphatase 76 Creatine Kinase 74 Creatine Kinase Index 4.4 Creatinine Kinase MB (Mass) 3.25 H Troponin I 2.720 *H Total Protein 6.3 Albumin 3.4 Globulin 2.90 Albumin/Globulin Ratio 1.17 Medications Current Medications Atorvastatin Calcium (Lipitor) 80 mg QHS PO Last administered on 08/25/18 22:16; Admin Dose 80 MG; Start 08/23/18 at 21:00 Cholecalciferol (Vitamin D) 5,000 unit DAILY PO Last administered on 08/26/18 08:15; Admin Dose 5,000 UNIT; Start 08/24/18 at 09:00 Losartan Potassium (Cozaar) 50 mg DAILY PO Last administered on 08/26/18 08:16; Admin Dose 50 MG; Start 08/24/18 at 09:00 Nifedipine (Procardia Xl) 30 mg DAILY PO Last administered on 08/26/18 08:15; Admin Dose 30 MG; Start 08/24/18 at 09:00 IV Flush (NS 3 ml) 3 ml PER PROTOCOL IV ; Start 08/23/18 at 15:30 Ondansetron HCl (Zofran Inj) 4 mg Q6H PRN IV NAUSEA/VOMITING; Start 08/23/18 at 15:30 Acetaminophen (Tylenol Supp) 650 mg Q6H PRN [place] .PAIN 1-3 OR TEMP; Start 08/23/18 at 15:30 Famotidine (Pepcid) 20 mg Q12 PO Last administered on 08/26/18 08:16; Admin Dose 20 MG; Start 08/23/18 at 21:00 Ceftriaxone Sodium 50 ml @ 100 mls/hr Q24H IVPB Last administered on 08/25/18 16:20; Admin Dose 100 MLS/HR; Start 08/23/18 at 15:30 Albuterol/ Ipratropium (Duoneb) 3 ml Q4H RESP THERAPY HHN Last administered on 08/26/18 09:44; Admin Dose 3 ML; Start 08/23/18 at 17:00 Miscellaneous Information 1 ea NOTE XX ; Start 08/23/18 at 15:30 Glucose (Glutose) 15 gm Q15M PRN PO DECREASED GLUCOSE; Start 08/23/18 at 15:30 Glucose (Glutose) 22.5 gm Q15M PRN PO DECREASED GLUCOSE; Start 08/23/18 at 15:30 Dextrose (D50w Syringe) 25 ml Q15M PRN IV DECREASED GLUCOSE; Start 08/23/18 at 15:30 Dextrose (D50w Syringe) 50 ml Q15M PRN IV DECREASED GLUCOSE; Start 08/23/18 at 15:30 Glucagon (Glucagen) 1 mg Q15M PRN IM DECREASED GLUCOSE; Start 08/23/18 at 15:30 Glucose (Glutose) 15 gm Q15M PRN BUCCAL DECREASED GLUCOSE; Start 08/23/18 at 15:30 Aspirin (Halfprin) 81 mg DAILY PO Last administered on 08/26/18at 08:16; Admin Dose 81 MG; Start 08/23/18 at 18:00 Heparin Sodium (Porcine) (Heparin (1000 Units/ml)) 4,800 unit PRN PRN CATHETER Dialysis Last administered on 08/24/18at 22:25; Admin Dose 4,800 UNIT; Start 08/23/18 at 18:30 Clopidogrel Bisulfate (plaVIX) 75 mg DAILY PO Last administered on 08/26/18at 08:15; Admin Dose 75 MG; Start 08/25/18 at 09:00 Acetaminophen (Tylenol Tab) 650 mg Q4H PRN PO PAIN Last administered on 08/24/18at 13:18; Admin Dose 650 MG; Start 08/24/18 at 08:30 Oxycodone/ Acetaminophen (Percocet (5/ 325)) 1 tab Q4H PRN PO NON-CARDIAC MODERATE PAIN 4-7; Start 08/24/18 at 08:30 Morphine Sulfate (morphine) 1 mg Q1H PRN IV SEVERE PAIN 7-10 Last administered on 08/24/18at 10:59; Admin Dose 1 MG; Start 08/24/18 at 08:30 Epoetin Maxi (Epogen (Esrd)) 10,000 units TuThSa@17 SC ; Start 08/26/18 at 17:00 Carvedilol (Coreg) 25 mg BID PO Last administered on 08/26/18at 08:16; Admin Dose 25 MG; Start 08/25/18 at 21:00 Hydralazine HCl (Apresoline) 10 mg Q6H PRN IV ELEVATED BLOOD PRESSURE Last administered on 08/25/18at 16:50; Admin Dose 10 MG; Start 08/25/18 at 16:00 Assessment/Plan Hospital Course (Demo Recall) IMPRESSION AND PLAN: 1. Acute hypoxemic respiratory failure, likely secondary to volume overload. 2. End-stage renal failure, on hemodialysis. 3. Probable underlying obstructive sleep apnea. 4. History of coronary artery disease. 5. History of essential hypertension. RECOMMENDATIONS: 1. Continue hemodialysis with volume removal. 2. Decrease O2 as tolerated. 3. Encourage out of bed. 4. Outpatient pulmonary function testing and sleep study. 5. Follow up with me. DC planning okay from pulmonary standpoint JACIEL RAMOS MD, [place] [facility] Aug 26, 2018 11:02
--- NOTE | 2018-08-26 13:00 | PDOCDIS ---
Discharge Instructions CONDITION [id number] Patient Condition: [id number] Stable HOME CARE INSTRUCTIONS: [id number] Your diet recommendation is: [id number] RENAL/LOW CHOL FOLLOW UP/APPOINTMENTS Follow-up Plan 1.Follow-up with , you have been scheduled to see me in the office on SEPTEMBER 02 at 2:15 pm [id number] [facility] [address] [place] [id number] Office You had a blocked heart artery and you had 1 stent placed. Importance of compliant with aspirin and Plavix were explained extensively. Medication for 1 month supply was delivered to you and you need to have your hansard reporter or primary doctor give refill prescriptions. CHRISTEN CLARK NP Aug 26, 2018 13:00
[2018-08-26] MEDS ORDERED: CLOP75TA28 PO (13:06)
[2018-08-26] MEDS ORDERED: ASPI-817 PO (13:06)
[2018-08-26] MEDS ORDERED: CARV12.579 PO (13:06)
--- NOTE | 2018-08-26 13:17 | DS ---
Date/Time of Note Date/Time of Note DATE: 08/26/18 TIME: 13:12 Discharge Summary Admission/Discharge Info Admit Date/Time Aug 23, 2018 at 15:55 Discharge Date/Time Discharge Diagnosis 1. s/p Acute hypoxemic respiratory failure secondary to volume overload/CHF exacerbation/NSTEMI 2.Acute decompensated diastolic congestive heart failure exacerbation 2/2 volume overload 2/2 ESRD.stable 3.NSTEMI-s/p LHC/PCI to RCA 08/23 4. ESRD, HD MWF-Access: Left IJ permacath-c/d/i 5. Leukocytosis, likely reactive-RESOLVED 6.Hypertension 7.Vitamin D deficiency. 10. 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 Beaver, cardiology , nephro Procedures 08/25/2018. Chest x-ray IMPRESSION: 1. Markedly improved pulmonary edema. 2. No other change from the 08/23/2018 chest radiograph. 2018. Chest x-ray IMPRESSION: Congestive heart failure 2018. 2D echocardiogram. Conclusions: Normal left ventricular systolic function. Normal left ventricular cavity size. Moderate concentric left ventricular hypertrophy. Ejection fraction is visually estimated at 65 %. Tissue Doppler/Mitral Doppler indices are consistent with impaired relaxation (Stage I diastolic dysfunction). There is moderate enlargement of left atrium. Mild mitral leaflet calcification. Moderate mitral annular calcification. Trace mitral regurgitation. Normal appearance of the aortic valve. No significant aortic stenosis or insufficiency. Normal appearance of the tricuspid valve. Estimated peak PA systolic pressure 43 mmHg. There is trace tricuspid regurgitation. Electronically Signed By: South Beaver 2018-08-23 17:03:50 PDT Dictated By: SOUTH BEAVER MD Signed By: SOUTH BEAVER MD Operative Report Procedure Date: Aug 24, 2018 Preoperative Diagnosis NSTEMI Postoperative Diagnosis NSTEMI Operation/Procedure Performed PCI RCA Surgeon see signature line Simulation Analyst N/A Anesthesia Type: moderate sedation Estimated Blood Loss: minimal Transfusion none Specimen None Grafts/Implants none Complications none Procedure Description Sewing Machine Operator: South Beaver MD Indication: nstemi Procure performed: #1 left heart catheterization and selective right and left coronary angiogram #2 Right femoral angiogram 3. Successful PTCA and stenting of right coronary artery using a 4 x 20 mm Synergy drug-eluting stent 4. Moderate sedation for more than 45 minutes Findings: 1. Left main: is large and normal and birfurcates to LAD & LCX. 2. LAD: has stenosis at proximal LAD, and 20 % stenosis at mid LAD. LAD is long and wraps around the apex 3. Left circumflex artery: is large and nondominant. it has about 70% calcified proximal stenosis 4. RCA: is very large and dominant. it has 90 % stenosis at proximal to mid RCA. After successful PCI of this lesion no significant residual stenosis was left 5. LV EDP is 18 with no significant gradient across aortic valve: Hx of Present Illness This is a 67-year-old male with ESRD, on hemodialysis Thursday, Thursday, Thursday, dyslipidemia, hypertension, vitamin D deficiency, presented to the emergency room with worsening shortness of breath and chest discomfort started yesterday. Patient was supposed to get his hemodialysis today and was unable to make it because of breathing difficulties. In the emergency room, patient was noted with elevated white count 19,600, hemoglobin 9.9, hematocrit 31.5, potassium 5.4, BUN 62, creatinine 10.22, and glucose 321. Patient also had elevated troponin 0 0.311. EKG negative for acute ST or T wave changes. Vital signs temperature 97.8, pulse rate 89, respiratory rate 32, blood pressure 192/79 and oxygen saturation 80%. Patient required BiPAP in the emergency room. At my encounter with the patient, he is on BiPAP and is lethargic. However, patient was able to answer my questions appropriately. He denied palpitation, nausea, vomiting, abdominal pain, swelling, dizziness, loss of consciousness, numbness, tingling, diaphoresis or other constitutional symptoms. Hospital Course 67-year-old male with ESRD, on hemodialysis Thursday, Thursday, Thursday, dyslipidemia, hypertension, vitamin D deficiency, presented to the emergency room with worsening shortness of breath found to have NSTEMI/Resp fx requiring BiPAP. Patient was continued on ultrafiltration for fluid management and beta liu dose was adjusted accordingly. Patient underwent LHC/PCI to RCA 08/23. Was continued on aspirin and Plavix. She was continued on ultrafiltration/hemodialysis appropriately. Respiratory failure resolved. Patient did not need any further supplemental oxygen. There was no further leukocytosis and no further need for antibiotic as there was no fevers or other symptoms. Patient's respiratory failure was most likely secondary to volume overload, CHF exacerbation and non-ST elevated myocardial infarction. volume status remained stable. Patient hospitalization was also noted for anemia with ESRD required 2 units of blood transfusion with follow-up H&H stable. Stool OB was unable to collect per nursing staff. There was no evidence of melena, hematochezia or others. At this time, patient is feeling back to baseline. He is very eager to be discharged home. Aspirin and Plavix was delivered to bedside for 1 month supply. Patient to follow-up with outpatient huc and hemodialysis clinic for next dialysis session. Patient was also instructed to follow-up with a educational/development assistant office and he already has an appointment set up. He verbalized understanding. Approximately 60 minutes was spent on coordinating the discharge on this patient. Patient was seen in collaboration with Dr. Suarez. Home Meds Active Scripts Aspirin* (Aspirin* EC) 81 Mg Tablet., 81 MG PO DAILY, #30 TAB Prov:CHRISTEN CLARK V. PROCESS MOLD TECHNICIAN 08/26/18 Carvedilol* (Carvedilol*) 12.5 Mg Tablet, 25 MG PO BID, #60 TAB Prov:CHRISTEN CLARK V. PROCESS MOLD TECHNICIAN 08/26/18 Clopidogrel Bisulfate (Clopidogrel) 75 Mg Tablet, 75 MG PO DAILY, #30 TAB Prov:CHRISTEN CLARK V. PROCESS MOLD TECHNICIAN 08/26/18 Reported Medications Atorvastatin* (Atorvastatin*) 80 Mg Tablet, 80 MG PO QHS, #30 TAB 08/23/18 Losartan Potassium* (Losartan Potassium*) 50 Mg Tablet, 50 MG PO DAILY, TAB 08/23/18 Minoxidil* (Lonitin*) 2.5 Mg Tab, 2.5 MG PO DAILY, TAB 08/23/18 Furosemide* (Furosemide*) 40 Mg Tablet, 40 MG PO DAILY, TAB 08/23/18 Carvedilol* (Carvedilol*) 12.5 Mg Tablet, 12.5 MG PO BID, #60 TAB 08/23/18 Cholecalciferol (Vitamin D3) 5,000 Unit Tablet, 5000 UNIT PO DAILY, TAB 08/23/18 Nifedipine* (Nifedipine ER*) 30 Mg Tablet.sa, 30 MG PO DAILY, TAB.SA 08/23/18 Bumetanide* (Bumetanide*) 1 Mg Tablet, 1 MG PO DAILY, TAB 08/23/18 Albuterol Sulfate* (Ventolin HFA*) 18 Gm Hfa.aer.ad, 2 PUFF INHALATION Q4H, #1 INHALER 08/23/18 Ciprofloxacin Hcl* (Ciprofloxacin Hcl*) 500 Mg Tablet, 500 MG PO DAILY, #14 TAB STARTED ON 08-18-18 FOR 14 DAYS 08/23/18 Discontinued Reported Medications Tramadol HCl (Tramadol HCl) 50 Mg Tab, 50 MG PO Q6H PRN for PAIN, TAB 01/13/14 Amlodipine Besylate* (Amlodipine Besylate*) 10 Mg Tablet, 10 MG PO DAILY, TAB 01/13/14 Clopidogrel Bisulfate (Clopidogrel) 75 Mg Tablet, 75 MG PO DAILY, TAB 01/13/14 Calcium Acetate (Calcium Acetate) 667 Mg Tablet, 667 MG PO DAILY, TAB 01/13/14 Atenolol* (Atenolol*) 25 Mg Tablet, 25 MG PO DAILY, TAB 01/13/14 Simvastatin (Simvastatin) 20 Mg Tablet, 20 MG PO HS, TAB 01/13/14 Aspirin (Aspirin) 325 Mg Tablet.dr, 325 MG PO 01/13/14 Ferrous Sulfate (Ferrous Sulfate) 324 Mg Tabsr, 324 MG PO BID 01/13/14 [Isosorbide] No Conflict Check, 10 MG PO TID 01/13/14 Febuxostat* (Uloric*) 80 Mg Tablet, 80 MG PO DAILY, TAB 01/13/14 Losartan Potassium* (Losartan Potassium*) 50 Mg Tablet, 50 MG PO DAILY, TAB 01/13/14 [Baclofen] No Conflict Check, 10 MG PO BID 01/13/14 Carvedilol* (Carvedilol*) 25 Mg Tablet, 3.125 MG PO DAILY 05/10/13 Famotidine* (Pepcid*) 20 Mg Tablet, 20 MG PO DAILY 05/10/13 Follow-up Plan 1.Follow-up with , you have been scheduled to see me in the office on SEPTEMBER 02 at 2:15 pm [id number] [facility] [address] [place] [address] Office You had a blocked heart artery and you had 1 stent placed. Importance of compliant with aspirin and Plavix were explained extensively. Medication for 1 month supply was delivered to you and you need to have your educational/development assistant or primary doctor give refill prescriptions. Primary Care Provider Care Physician No Primary Pending Labs Laboratory Tests Test 08/26/18 05:08 08/26/18 11:12 White Blood Count 6.9 10^3/ul (4.8-10.8) Red Blood Count 2.87 10^6/ul (4.70-6.10) Hemoglobin 8.7 g/dl (14.0-18.0) Hematocrit 26.1 % (42.0-52.0) Mean Corpuscular Volume 90.9 fl (82.0-101.0) Mean Corpuscular Hemoglobin 30.3 pg (29.0-33.0) Mean Corpuscular 33.3 g/dl (32.0-37.0) Hemoglobin Concent Red Cell Distribution Width 14.8 % (11.5-14.5) Platelet Count 173 10^3/UL (140-415) Mean Platelet Volume 11.4 fl (7.4-10.4) Immature Granulocytes % 0.300 % (0.001-0.429) Neutrophils % 62.5 % (39.0-77.0) Lymphocytes % 14.3 % (15.0-51.0) Monocytes % 13.5 % (0.0-11.0) Eosinophils % 8.7 % (0.0-7.0) Basophils % 0.7 % (0.0-2.0) Nucleated Red Blood Cells % 0.0 /100WBC (0.0-0.0) Immature Granulocytes # 0.020 10^3/ul (0.0-0.031) Neutrophils # 4.3 10^3/ul (1.6-7.5) Lymphocytes # 1.0 10^3/ul (0.8-2.9) Monocytes # 0.9 10^3/ul (0.3-0.9) Eosinophils # 0.6 10^3/ul (0.0-0.5) Basophils # 0.1 10^3/ul (0.0-0.1) Nucleated Red Blood Cells # 0.0 10^3/ul (0.0-0.0) Sodium Level 140 mmol/L (135-144) Potassium Level 4.1 mmol/L (3.5-5.1) Chloride Level 97 mmol/L (97-110) Carbon Dioxide Level 29 mmol/L (21-31) Anion Gap 14 (5-13) Blood Urea Nitrogen 30 mg/dl (7-20) Creatinine 4.55 mg/dl (0.61-1.24) Est Glomerular Filtrat Rate mL/min 13 mL/min (>60) Glucose Level 89 mg/dl (70-220) Calcium Level 8.2 mg/dl (8.4-10.2) Total Bilirubin 0.4 mg/dl (0.2-1.3) Direct Bilirubin 0.00 mg/dl (0.00-0.20) Indirect Bilirubin 0.4 mg/dl (0-1.1) Aspartate Amino Transf (AST/SGOT) 29 IU/L (15-46) Alanine 34 IU/L (13-69) Aminotransferase (ALT/SGPT) Alkaline Phosphatase 76 IU/L (42-121) Creatine Kinase 74 IU/L (23-200) Creatine Kinase Index 4.4 Creatinine Kinase MB (Mass) 3.25 ng/ml (0.0-2.4) Troponin I 2.720 ng/ml (0.000-0.120) Total Protein 6.3 g/dl (6.1-8.1) Albumin 3.4 g/dl (3.3-4.9) Globulin 2.90 g/dl (1.3-3.2) Albumin/Globulin Ratio 1.17 Lab Scanned Report BLOOD TRANSFUSION CHRISTEN CLARK NP Aug 26, 2018 13:17
[2018-08-26] MEDS ORDERED: EPOETIN 10000 UNITS/1 ML INJ (ESRD) SC SCH (17:00)
--- NOTE | 2018-08-28 18:20 | RADRPT ---
Vent Rate: 80 bpm RR Interval: 0 msec HI Interval: 192 msec QRS Duration: 96 msec QT Interval: 428 msec QTC Interval: 493 msec P-R-T [place]: 62 - 75 - 90 degrees Normal sinus rhythm Septal infarct , age undetermined ST & T wave abnormality, consider lateral ischemia Abnormal ECG Electronically Signed By: Derrell Varghese
--- NOTE | 2018-08-28 18:22 | RADRPT ---
Vent Rate: 81 bpm RR Interval: 0 msec ND Interval: 196 msec QRS Duration: 96 msec QT Interval: 432 msec QTC Interval: 501 msec P-R-T [place]: 55 - 70 - 0 degrees Normal sinus rhythm ST & T wave abnormality, consider inferior ischemia Prolonged QT Abnormal ECG Electronically Signed By: Derrell Varghese
== END 2018-08-26 16:15 | disposition home or self-care (01) | DRG 246 ==
LOC: E/R 09:40 → 6WM 15:55 → REC 08-24 10:28 → 6WM 08-24 15:57
PROVIDERS: ADMIT Hospitalist; ATTEND Hospitalist
PROC: 5A09457 Assistance with Respiratory Ventilation, 24-96 Consecutive Hours, Continuous Positive Airway Pressure (ICD-10-PCS; 2018-08-23)
PROC: 5A1D70Z Performance of Urinary Filtration, Intermittent, Less than 6 Hours Per Day (ICD-10-PCS; 2018-08-23)
PROC: 5A1D70Z Performance of Urinary Filtration, Intermittent, Less than 6 Hours Per Day (ICD-10-PCS; 2018-08-24)
PROC: 4A023N7 Measurement of Cardiac Sampling and Pressure, Left Heart, Percutaneous Approach (ICD-10-PCS; 2018-08-24)
PROC: B211YZZ Fluoroscopy of Multiple Coronary Arteries using Other Contrast (ICD-10-PCS; 2018-08-24)
PROC: B215YZZ Fluoroscopy of Left Heart using Other Contrast (ICD-10-PCS; 2018-08-24)
PROC: 30233N1 Transfusion of Nonautologous Red Blood Cells into Peripheral Vein, Percutaneous Approach (ICD-10-PCS; 2018-08-24)
PROC: 027034Z Dilation of Coronary Artery, One Artery with Drug-eluting Intraluminal Device, Percutaneous Approach (ICD-10-PCS; principal; 2018-08-24 07:30)
PROC: 5A1D70Z Performance of Urinary Filtration, Intermittent, Less than 6 Hours Per Day (ICD-10-PCS; 2018-08-25)
DX: I21.4 Non-ST elevation (NSTEMI) myocardial infarction (principal); J96.01 Acute respiratory failure with hypoxia; I50.33 Acute on chronic diastolic (congestive) heart failure; N18.6 End stage renal disease; I13.2 Hypertensive heart and chronic kidney disease with heart failure and with stage 5 chronic kidney disease, or end stage renal disease; E87.5 Hyperkalemia; D63.1 Anemia in chronic kidney disease; E55.9 Vitamin D deficiency, unspecified; I25.10 Atherosclerotic heart disease of native coronary artery without angina pectoris; M1A.9XX0 Chronic gout, unspecified, without tophus (tophi); G47.33 Obstructive sleep apnea (adult) (pediatric); Z79.82 Long term (current) use of aspirin; Z99.2 Dependence on renal dialysis; Z87.891 Personal history of nicotine dependence
CPT/HCPCS: 36415; 36430; 36600; 71045; 80048; 80053; 80061; 82550; 82553; 82728; 82803; 82962; 83036; 83540; 83735; 83880; 84100; 84439; 84443; 84484; 85025; 85610; 85730; 86706; 86850; 86900; 86901; 86920; 87040; 87340; 87400; 90686; 90935; 93005; 93306; 93458; 94640; 94644; 94660; 94664; 96374; J0583; C1725; C1760; C1874; C1887; C1894; C9600; J0360; J0696; J1644; J1815; J2250; J2270; J3010; J7040; P9016; Q4081; Q9967

== ENCOUNTER 2018-09-28 13:36 | Inpatient (IN) | payer MEDICARE, OTHER ==
[~2018-09-28] VITALS: Ht 165.1 cm; Wt 73.3 kg
[~2018-09-28 13:36] MED LIST changes: +ALBU18HF INHALATION; -AMLO-147 PO; +ASPI-817 PO; -ASPI325T32 PO; -ATEN-51 PO; +ATOR-2 PO; -BACLOFEN PO; +BUME1TAB PO; -CALC667T PO; +CARV12.579 PO; -CARV25TA79 PO; +CHOL500010 PO; -CLOP75TA27 PO; +CLOP75TA28 PO; -FAMO-96 PO; -FEBU80TA PO; -FERR324T6 PO; -ISOSORBIDE PO; +NIFE30TA23 PO; -SIMV20TA2 PO; -TRAM50TA2 PO
[2018-09-28] MEDS ORDERED: CARV25TA79 PO (14:30)
[2018-09-28] MEDS ORDERED: SOD CHLORIDE 0.9% 100 ML ONE (16:23)
[2018-09-28] MEDS ORDERED: IODIXANOL LOCM 100 ML BTL ONE (16:23)
--- NOTE | 2018-09-28 18:31 | ERD ---
ER Documentation Chief Complaint Chief Complaint bright red blood after bm this morning. generalized weakness HPI This is a 67-year-old male who on dialysis who is here for rectal bleeding. He states that he has had 8 rounds of bloody stool. He says he is having bowel movements every 30 minutes to 1 hour that are bloody. They initially were solid stool with some blood afterwards no other having bright red blood mixed with stool. He has no abdominal pain. No nausea or vomiting. No history of GI bleed. No history of diverticulitis. He has no pain or constipation. ROS All systems reviewed and are negative except as per history of present illness. Medications Home Meds Active Scripts Aspirin* (Aspirin* EC) 81 Mg Tablet.dr, 81 MG PO DAILY, #30 TAB Prov:CHRISTEN CLARK V. COMMERCIAL HOUSEKEEPER 08/26/18 Clopidogrel Bisulfate (Clopidogrel) 75 Mg Tablet, 75 MG PO DAILY, #30 TAB Prov:CHRISTEN CLARK V. COMMERCIAL HOUSEKEEPER 08/26/18 Reported Medications Carvedilol* (Carvedilol*) 25 Mg Tablet, 25 MG PO BID, #60 TAB 09/28/18 Cholecalciferol (Vitamin D3) 5,000 Unit Tablet, 5000 UNIT PO DAILY, TAB 08/23/18 Nifedipine* (Nifedipine ER*) 30 Mg Tablet.sa, 30 MG PO DAILY, TAB.SA 08/23/18 Bumetanide* (Bumetanide*) 1 Mg Tablet, 1 MG PO DAILY, TAB 08/23/18 Albuterol Sulfate* (Ventolin HFA*) 18 Gm Hfa.aer.ad, 2 PUFF INHALATION Q4H, #1 INHALER 08/23/18 Discontinued Reported Medications Atorvastatin* (Atorvastatin*) 80 Mg Tablet, 80 MG PO QHS, #30 TAB 08/23/18 Losartan Potassium* (Losartan Potassium*) 50 Mg Tablet, 50 MG PO DAILY, TAB 08/23/18 Discontinued Scripts Carvedilol* (Carvedilol*) 12.5 Mg Tablet, 25 MG PO BID, #60 TAB Prov:CHRISTEN CLARK V. COMMERCIAL HOUSEKEEPER 08/26/18 Allergies Allergies: Coded Allergies: No Known Allergies (Verified Allergy, Unknown, 09/28/18) PMhx/Soc History of Surgery: Yes (AV FISTULA PLACEMENT) Anesthesia Reaction: No Hx Neurological Disorder: No Hx Respiratory Disorders: Yes (SOB) Hx Cardiac Disorders: Yes (DYSLIPIDEMIA, HTN, CAD, CHF) Hx Psychiatric Problems: No Hx Miscellaneous Medical Probl: Yes (VIT D DEFICIENCY, ESRD/DIALYSIS) Hx Alcohol Use: No Hx Substance Use: No Hx Tobacco Use: No Smoking Status: Former smoker FmHx Family History: No coronary disease Physical Exam Vitals Vital Signs Date Temp Pulse Resp B/P (MAP) Pulse Ox O2 O2 Flow FiO2 Time Delivery Rate 09/28/18 98.0 81 17 140/64 97 Room Air 18:05 (89) 09/28/18 98.2 89 18 129/53 100 15:13 (78) 09/28/18 98.2 104 18 141/63 100 13:41 (89) Physical Exam Const: Well-developed, well-nourished Head: Atraumatic, normocephalic Eyes: Normal Conjunctiva, PERRLA, EOMI, normal sclera, no nystagmus ENT: Normal External Ears, Nose and Mouth, moist mucus membranes. Neck: Full range of motion. No meningismus, no lymphadenopathy. Resp: Clear to auscultation bilaterally, no wheezing, rhonchi, rales Cardio: Regular rate and rhythm, no murmurs, S1 S2 present Abd: Soft, non tender x 4, non distended. Normal bowel sounds, no guarding or rebound, no pulsitile abdominal masses or bruits Skin: No petechiae or rashes, no ecchymosis , no maculopapular rash Back: No midline or flank tenderness Ext: No cyanosis, or edema, FROM x 4, normal inspection, neurovascularly intact x 4 Neur: Awake and alert, STR 5/5 x 4, sensation intact x 4, no focal findings, cerebellum intact Psych: Normal Mood and Affect Result Diagram: 09/28/18 1443 09/28/18 1443 Results 24 hrs Laboratory Tests Test 09/28/18 14:43 White Blood Count 5.6 10^3/ul Red Blood Count 1.96 10^6/ul Hemoglobin 6.2 g/dl Hematocrit 18.6 % Mean Corpuscular Volume 94.9 fl Mean Corpuscular Hemoglobin 31.6 pg Mean Corpuscular Hemoglobin Concent 33.3 g/dl Red Cell Distribution Width 17.0 % Platelet Count 135 10^3/UL Mean Platelet Volume 10.4 fl Immature Granulocytes % 0.400 % Neutrophils % 63.7 % Segmented Neutrophils % (Manual) 62 % Band Neutrophils % (Manual) 2 % Lymphocytes % 17.4 % Lymphocytes % (Manual) 17 % Monocytes % 10.5 % Monocytes % (Manual) 8 % Eosinophils % 7.6 % Eosinophils % (Manual) 11 % Basophils % 0.4 % Nucleated Red Blood Cells % 0.0 /100WBC Immature Granulocytes # 0.020 10^3/ul Neutrophils # 3.6 10^3/ul Neutrophils # (Manual) 3.5 10^3/ul Band Neutrophils # 0.1 10^3/ul Lymphocytes (Manual) 0.9 10^3/ul Lymphocytes # 1.0 10^3/ul Monocytes # 0.6 10^3/ul Monocytes # (Manual) 0.4 10^3/ul Eosinophils # 0.4 10^3/ul Basophils # 0.0 10^3/ul Nucleated Red Blood Cells # 0.0 10^3/ul Pathologist Review (Hematology) YES Platelet Estimate DECREASED Polychromasia 2+ Hypochromasia 3+ Poikilocytosis 3+ Anisocytosis 3+ Microcytosis 3+ Prothrombin Time 14.0 Sec Prothrombin Time Ratio 1.1 INR International Normalized Ratio 1.07 Activated Partial Thromboplast Time 31.8 Sec Sodium Level 139 mmol/L Potassium Level 4.8 mmol/L Chloride Level 98 mmol/L Carbon Dioxide Level 28 mmol/L Anion Gap 13 Blood Urea Nitrogen 54 mg/dl Creatinine 7.27 mg/dl Est Glomerular Filtrat Rate mL/min 8 mL/min Glucose Level 105 mg/dl Calcium Level 8.0 mg/dl Total Bilirubin 0.1 mg/dl Direct Bilirubin 0.00 mg/dl Indirect Bilirubin 0.1 mg/dl Aspartate Amino Transf (AST/SGOT) 17 IU/L Alanine Aminotransferase (ALT/SGPT) 16 IU/L Alkaline Phosphatase 70 IU/L Troponin I 0.016 ng/ml Total Protein 6.5 g/dl Albumin 3.5 g/dl Globulin 3.00 g/dl Albumin/Globulin Ratio 1.16 Procedures/MDM DIAGNOSTIC IMAGING REPORT Patient: JORGE RUIZ : 1950 Age: 67 Sex: M MR #: [id number] DOS: 09/28/18 1430 Ordering MD: KINJAL BRYANT DO Location: E/R Room/Bed: PROCEDURE: CT abdomen and pelvis with IV contrast CLINICAL INDICATION: Abdominal pain. Lower GI bleed. TECHNIQUE: Axial images were obtained through the abdomen and pelvis after the IV administration of 100 cc Isovue 300 IV contrast. Coronal and sagittal reconstructions were obtained. DICOM images are available. DLP = 563.6 mGy-cm. CTDiol= 9.9 mGy. One or more of the following post reduction techniques were used: - Automated exposure control. - Adjustment of the mA and/or Kv according to patient's size. - Use of iterative reconstruction technique COMPARISON: none available FINDINGS: Visualized lower lungs: Partially visualized focal consolidation in the lingu la. Scattered atelectasis in the remainder of the visualized lungs. Heart size: Heart size within normal limits. Coronary artery calcifications. Trace pericardial effusion. Liver: Unremarkable. Gallbladder: Unremarkable. Pancreas: Unremarkable. Spleen: Unremarkable. Adrenals: Unremarkable. Kidneys and ureters: Slightly small bilateral kidneys. A few cysts in both kidneys. The largest measuring up to approximately 1.7 cm in the left kidney. Bladder: Unremarkable. Prostate: Unremarkable. Colon: Scattered gas and fluid in the colon. Scattered sigmoid colon and left colon diverticula. Appendix: Unremarkable. Small bowel: Nondilated. Stomach: Unremarkable. Duodenum: Unremarkable. Free fluid/fluid collections: None. Lymphadenopathy: None. Vasculature: Moderate scattered calcified and noncalcified atherosclerosis throughout the arterial vasculature. Extremely focal, thrombosed dissection in the mid infrarenal aorta. No significant compression upon the true lumen by the false lumen. Subcutaneous and muscular soft tissues: Unremarkable. Osseous structures: Mild to moderate degenerative changes in the spine. IMPRESSION: Partially visualized focal consolidation in the lingula. Small kidneys containing few cysts, compatible with the patient's history of end-stage renal disease. Colonic diverticulosis. Atherosclerotic disease throughout the arterial vasculature and degenerative changes in the spine. RPTAT: AA .Jacob Boyce MD, MD Date Time Electronically viewed and signed by .Jacob Boyce MD, MD on 09/28/2018 18:16 .P/ CC: KINJAL BRYANT DO [id number] Patient was given 2 units of packed red blood cells for hemoglobin of 6.2. Spoke with Dr. Martínez of GI will admit to panel. Critical Care Time: 30 minutes Treatments/Evaluations: Close monitoring and treatment of unstable vital signs, cardiorespiratory, and neurologic status, while maintaining tight balance of fluid, respiratory, and cardiac interventions. This time includes discussing the case with the patient and the patient's family. This time does not include all procedures stated elsewhere in this record. This time also includes reviewing old records, labs and radiological studies. This time includes examining and re- examining the patient. Additionally, this time also includes arranging care with admitting and consulting physicians. Departure Diagnosis: Primary Impression: Anemia Anemia type: unspecified type Qualified Codes: D64.9 - Anemia, unspecified Additional Impression: Lower GI bleed Condition: Stable KINJAL BRYANT DO Sep 28, 2018 18:31
[2018-09-28] MEDS ORDERED: SOD CHLORIDE 0.9% 1,000 ML IV SCH (19:19)
[2018-09-28] MEDS ORDERED: ONDANSETRON 4 MG INJ IV PRN ×2 (19:30→21:00)
[2018-09-28] MEDS ORDERED: ACETAMINOPHEN 325 MG TAB PO PRN ×2 (19:30→21:00)
--- NOTE | 2018-09-28 20:33 | HP ---
Date/Time of Note Date/Time of Note DATE: 09/28/18 TIME: 20:33 Assessment/Plan VTE Prophylaxis SCD applied (from Nsg): Yes Pharmacological prophylaxis: NA/contraindicated Pharm contraindication: low risk/ambulating Lines/Catheters IV Catheter Type (from Nrsg): Saline Lock Assessment/Plan Hospital Course This is a 67-year-old male being admitted to the telemetry floor for: #1 bright red blood per rectum: Patient reports bright red blood, denies any abdominal pain. He has had multiple bloody bowel movements .hemoglobin in the emergency department was 6.2 he did receive 2 units of packed red blood cells in the emergency department: We will check H&H every 6 hours. GI has been consulte d. Hold aspirin and Plavix at the current time. Goal is to keep hemoglobin above 8 given patient underlying cardiac history. GI is ready been consulted by the emergency department. #2 ESRD: On hemodialysis Thursday, Thursday, Thursday: Avoid NSAIDs, avoid nephro toxic agents. Will consult nephrology #3 coronary artery disease: Patient is status post stenting on August 24, 2018. Currently on aspirin and Plavix which we will hold. Will consult cardiology regarding this. #4 dyslipidemia: Continue statin #5 hypertension: Continue patient home medication #6 Acute on chronic anemia: We will consult GI as per #1, patient's chronic anemia is likely secondary to his end-stage renal disease. Will consult nephrology. #7 DVT GI prophylaxis: SCDs, no GI prophylaxis indicated Further treatment strategy will be implemented as per the clinical course. Result Diagram: 09/28/18 1443 09/28/18 1443 Results 24hrs Laboratory Tests Test 09/28/18 14:43 White Blood Count 5.6 Red Blood Count 1.96 #L Hemoglobin 6.2 #*L Hematocrit 18.6 #L Mean Corpuscular Volume 94.9 Mean Corpuscular Hemoglobin 31.6 Mean Corpuscular Hemoglobin Concent 33.3 Red Cell Distribution Width 17.0 H Platelet Count 135 #L Mean Platelet Volume 10.4 Immature Granulocytes % 0.400 Neutrophils % 63.7 Segmented Neutrophils % (Manual) 62 Band Neutrophils % (Manual) 2 Lymphocytes % 17.4 Lymphocytes % (Manual) 17 Monocytes % 10.5 Monocytes % (Manual) 8 Eosinophils % 7.6 H Eosinophils % (Manual) 11 H Basophils % 0.4 Nucleated Red Blood Cells % 0.0 Immature Granulocytes # 0.020 Neutrophils # 3.6 Neutrophils # (Manual) 3.5 Band Neutrophils # 0.1 Lymphocytes (Manual) 0.9 Lymphocytes # 1.0 Monocytes # 0.6 Monocytes # (Manual) 0.4 Eosinophils # 0.4 Basophils # 0.0 Nucleated Red Blood Cells # 0.0 Pathologist Review (Hematology) YES Platelet Estimate DECREASED Polychromasia 2+ Hypochromasia 3+ Poikilocytosis 3+ Anisocytosis 3+ Microcytosis 3+ Prothrombin Time 14.0 Prothrombin Time Ratio 1.1 INR International Normalized Ratio 1.07 Activated Partial Thromboplast Time 31.8 Sodium Level 139 Potassium Level 4.8 Chloride Level 98 Carbon Dioxide Level 28 Anion Gap 13 Blood Urea Nitrogen 54 H Creatinine 7.27 H Est Glomerular Filtrat Rate mL/min 8 L Glucose Level 105 Calcium Level 8.0 L Total Bilirubin 0.1 L Direct Bilirubin 0.00 Indirect Bilirubin 0.1 Aspartate Amino Transf (AST/SGOT) 17 Alanine Aminotransferase (ALT/SGPT) 16 Alkaline Phosphatase 70 Troponin I 0.016 Total Protein 6.5 Albumin 3.5 Globulin 3.00 Albumin/Globulin Ratio 1.16 HPI/ROS Admit Date/Time Admit Date/Time Hx of Present Illness chief complaint: Bright red blood per rectum x1 day This is a 67-year-old male who on dialysis Thursday who is here for rectal bleeding. He states that he has had 8 rounds of bloody stool. He says he is having bowel movements every 30 minutes to 1 hour that are bloody. They initially were solid stool with some blood afterwards no other having bright red blood mixed with stool. He has no abdominal pain. No nausea or vomiting. No history of GI bleed. No history of diverticulitis. He has no pain or constipation. He reports that since coming to the emergency department he has had 3 bloody bowel movements. He denies any recent illnesses or fevers. He did have a heart catheterization where he received stenting to the right coronary artery and is currently on aspirin and Plavix. Allergies: NKDA Medications: See Jul Const: As per HPI Eyes : No pain discharge or redness or change in visual acuity ENT: No pain, sore throat, congestion, congestion, dysphagia or discharge Respiratory: No shortness of breath, cough, sputum, wheezing, or pleuritic pain Cardiovascular: No chest pain, palpitation, PND, or edema GI : As per HPI Genitourinary: No dysuria, hematuria, flank pain , discharge or CVA tenderness Musculoskeletal: No joint pain, back pain, neck pain, restricted range of motion in neck or joints Skin: No rash, bruising or hives Neuro: No headache, dizziness, syncope, seizure, focal weakness Endocrine: No polyuria, polydipsia, temperature intolerance Psych: No hallucination, depression, anxiety or suicidal ideation PMH/Family/Social Past Medical History ESRD, on hemodialysis Thursday, Thursday, Thursday, dyslipidemia, hypertension, vitamin D deficiency, anemia, coronary artery disease Medications Current Medications Sodium Chloride 1,000 ml @ 80 mls/hr [id number] IV ; Start 09/28/18 at 19:19; Stop 09/29/18 at 07:48 Ondansetron HCl (Zofran Inj) 4 mg ER BRIDGE PRN IV NAUSEA/VOMITING; Start 09/28/18 at 19:30; Stop 09/29/18 at 19:29 Acetaminophen (Tylenol Tab) 650 mg ER BRIDGE PRN PO .MILD PAIN 1-3 OR TEMP; Start 09/28/18 at 19:30; Stop 09/29/18 at 19:29 Coded Allergies: No Known Allergies (Verified Allergy, Unknown, 09/28/18) Past Surgical History Left heart catheterization status post stent to right coronary artery, failed AV fistula, left chest permacath Family History Significant Family History: hypertension, renal disease, vascular disease Social History Alcohol Use: sober Smoking Status: Former smoker Drug Use: none Exam/Review of Systems Vital Signs Vitals Vital Signs Date Temp Pulse Resp B/P (MAP) Pulse Ox O2 O2 Flow FiO2 Time Delivery Rate 09/28/18 88 20 153/70 100 Room Air 20:21 (97) 90 09/28/18 98.0 18:05 Exam Exam General: Patient is a pleasant male currently lying in bed in no acute distress HEENT: Atraumatic, normocephalic. The pupils are equal, round and reactive. Extraocular motor are intact Neck: Supple with full range of motion. No rigidity or meningismus Chest: Nontender Lungs: Clear to auscultation bilaterally no crackles rales or wheezing Heart: Normal S1-S2, Regular rhythm and rate. No murmur, S3, or S4 Abdomen: Soft , nontender, nondistended , bowel sounds are present. No guarding no rebound tenderness , No masses or organomegaly. Extremities: Normal to inspection, no edema no cyanosis Rectal exam: Deferred Neurologic: Normal mental status, speech normal, cranial nerves II through XII are intact, motor and sensory are intact, no focal weakness Additional Comments PROCEDURE: CT abdomen and pelvis with IV contrast CLINICAL INDICATION: Abdominal pain. Lower GI bleed. TECHNIQUE: Axial images were obtained through the abdomen and pelvis after the IV administration of 100 cc Isovue 300 IV contrast. Coronal and sagittal reconstructions were obtained. DICOM images are available. DLP = 563.6 mGy-cm. CTDiol= 9.9 mGy. One or more of the following post reduction techniques were used: - Automated exposure control. - Adjustment of the mA and/or Kv according to patient's size. - Use of iterative reconstruction technique COMPARISON: none available FINDINGS: Visualized lower lungs: Partially visualized focal consolidation in the lingula. Scattered atelectasis in the remainder of the visualized lungs. Heart size: Heart size within normal limits. Coronary artery calcifications. Trace pericardial effusion. Liver: Unremarkable. Gallbladder: Unremarkable. Pancreas: Unremarkable. Spleen: Unremarkable. Adrenals: Unremarkable. Kidneys and ureters: Slightly small bilateral kidneys. A few cysts in both kidneys. The largest measuring up to approximately 1.7 cm in the left kidney. Bladder: Unremarkable. Prostate: Unremarkable. Colon: Scattered gas and fluid in the colon. Scattered sigmoid colon and left colon diverticula. Appendix: Unremarkable. Small bowel: Nondilated. Stomach: Unremarkable. Duodenum: Unremarkable. Free fluid/fluid collections: None. Lymphadenopathy: None. Vasculature: Moderate scattered calcified and noncalcified atherosclerosis throughout the arterial vasculature. Extremely focal, thrombosed dissection in the mid infrarenal aorta. No significant compression upon the true lumen by the false lumen. Subcutaneous and muscular soft tissues: Unremarkable. Osseous structures: Mild to moderate degenerative changes in the spine. IMPRESSION: Partially visualized focal consolidation in the lingula. Small kidneys containing few cysts, compatible with the patient's history of end-stage renal disease. Colonic diverticulosis. Atherosclerotic disease throughout the arterial vasculature and degenerative changes in the spine. RPTAT: AA .Jacob Boyce MD, MD Date Time Electronically viewed and signed by .Jacob Boyce MD, MD on 09/28/2018 18:16 .P/ CC: KINJAL BRYANT DO [id number] PROCEDURE: XR Chest. CLINICAL INDICATION: Shortness of breath. TECHNIQUE: Single frontal view. COMPARISON: 08/23/2018. FINDINGS: The left internal jugular vein tunneled dialysis catheter remains in satisfactory position with the tip in the cavoatrial junction region. There is mild pulmonary edema, markedly improved. The lungs are otherwise clear. The heart is enlarged. There is calcification in the aorta consistent with atherosclerosis. There is no pleural effusion or pneumothorax. Surgical clips are present in the left axillary region. There is an old healed right clavicle fracture. IMPRESSION: 1. Markedly improved pulmonary edema. 2. No other change from the 08/23/2018 chest radiograph. RPTAT: QQ .Cliff Samson MD, Date Time Electronically viewed and signed by .Cliff Samson MD, on 08/25/2018 08:28 .R/ CC: CHANDLER LIMA MD [id number] AZALEA TAYLOR Sep 28, 2018 20:33
[2018-09-28] MEDS ORDERED: DOCUSATE SODIUM 100 MG CAP PO PRN (21:00)
[2018-09-28] MEDS: ALBUTEROL HFA 8 GM INHALER INH SCH (21:00)
[2018-09-28] MEDS ORDERED: NACL 0.9% 3 ML SYG IV SCH (21:00)
[2018-09-28] MEDS ORDERED: BISACODYL (EC) 5 MG TAB PO PRN (21:00)
[2018-09-28] MEDS ORDERED: morphine 2 MG INJ IV PRN (21:00)
[2018-09-29] VITALS (27 sets, daily range): BP systolic 132–186; BP diastolic 58–86; PULSE 65–101; RESP 18–20; Ht 165.1 cm; Wt 73.3 kg
[2018-09-29] MEDS: ALBUTEROL HFA 8 GM INHALER INH SCH ×6 (01:00→21:32)
[2018-09-29] MEDS ORDERED: FUROSEMIDE 20 MG INJ IV ONE (02:00)
[2018-09-29] MEDS: NIFEdipine (XL) 30 MG TAB PO SCH (09:00)
--- NOTE | 2018-09-29 09:56 | CONS ---
Assessment/Plan Assessment/Plan Hospital Course (Demo Recall) 1. GI bleed/rectal bleed 2. Severe anemia requiring transfusion 3. History of recent/July 2018 non-ST elevation myocardial infarction 4. Status post PCI of the right coronary artery using a drug-eluting stent on August 24, 2018 5. Renal failure on dialysis 6. Hypertension 7. Dyslipidemia Recommendation: Aspirin and Plavix is on hold currently due to concern about active bleeding. At least Plavix needs to be started as soon as possible. GI work-up to be done as soon as possible today and Plavix to be started either tonight or tomorrow morning given his recent PCI Continue with the Coreg We will start the patient on statin as well. Check the liver function test as well as lipid panel tomorrow morning. We will continue to monitor on telemetry. Hemodialysis as per renal. Transfusion as needed. Will defer to primary team Thank you for his referral. We will continue to follow along with you. SOUTH AMAYA MD [facility] Consultation Date/Type/Reason Admit Date/Time Date of Consultation: September 29, 2018 Type of Consult Cardiology Reason for Consultation CAD Requesting Provider: AZALEA TAYLOR Date/Time of Note DATE: 09/29/18 TIME: 09:49 Hx of Present Illness Interventional cardiology consultation note Chief complaint: Rectal bleeding Reason for consult: Coronary artery disease status post recent PCI History of present illness: Thank you for this referral. History was informed the patient who is a poor historian for review of the old chart patient also very well-known to me from office visit as well as previous admission to the hospital. Cussed with the physician and staff as well This is a pleasant 67-year-old gentleman with history of coronary mouna ry disease status post recent non-ST elevation myocardial infarction and PCI of his right coronary artery about a month ago who came to emergency room with complaints of rectal bleeding. Patient said he has had a bloody blood per rectum. No chest pain or pressure no palpitation now. He is on aspirin and Plavix for his recent PCI. Patient has been very confused about taking medication. On his last visit my office couple weeks ago it was noted that he was apparently also taking Eliquis which I had told him to stop. At this point to be honest I am not completely sure if he has been able to follow with my orders are not. Due to his active bleeding his aspirin and Plavix are on hold PAST MEDICAL HISTORY: 1. history of coronary artery disease. Status post PCI of the right coronary artery using a drug-eluting stent July 2018 by myself 2. End-stage renal disease on maintenance hemodialysis. 3. hypertension, 4. anemia of chronic kidney disease, 5. gout, 6. gastroesophageal reflux disease. 7. Hyperlipidemia. ? History of paroxysmal atrial fibrillation with Past surgical history: He did have a left upper extremity AV fistula PCI of the right coronary artery August 24, 2018. Coronary angiogram at that time showed: 1. Left main: is large and normal and birfurcates to LAD & LCX. 2. LAD: has stenosis at proximal LAD, and 20 % stenosis at mid LAD. LAD is long and wraps around the apex 3. Left circumflex artery: is large and nondominant. it has about 70% calcified proximal stenosis 4. RCA: is very large and dominant. it has 90 % stenosis at proximal to mid RCA. After successful PCI of this lesion no significant residual stenosis was left 5. LV EDP is 18 with no significant gradient across aortic valve: SOCIAL HISTORY: He does not smoke, does not drink alcohol, does not use illicit drugs. MEDICATIONS: REVIEWED. ALLERGIES: He has no known allergies. Family history: No reported history of early coronary artery disease Social history: Has quit smoking many years ago Review of system: Patient denies all others except for above-mentioned Past Medical History Home Meds Active Scripts Aspirin* (Aspirin* EC) 81 Mg Tablet.dr, 81 MG PO DAILY, #30 TAB Prov:CHRISTEN CLARK NP 08/26/18 Clopidogrel Bisulfate (Clopidogrel) 75 Mg Tablet, 75 MG PO DAILY, #30 TAB Prov:CHRISTEN CLARK NP 08/26/18 Reported Medications Carvedilol* (Carvedilol*) 25 Mg Tablet, 25 MG PO BID, #60 TAB 09/28/18 Cholecalciferol (Vitamin D3) 5,000 Unit Tablet, 5000 UNIT PO DAILY, TAB 08/23/18 Nifedipine* (Nifedipine ER*) 30 Mg Tablet.sa, 30 MG PO DAILY, TAB.SA 08/23/18 Bumetanide* (Bumetanide*) 1 Mg Tablet, 1 MG PO DAILY, TAB 08/23/18 Albuterol Sulfate* (Ventolin HFA*) 18 Gm Hfa.aer.ad, 2 PUFF INHALATION Q4H, #1 INHALER 08/23/18 Discontinued Reported Medications Atorvastatin* (Atorvastatin*) 80 Mg Tablet, 80 MG PO QHS, #30 TAB 08/23/18 Losartan Potassium* (Losartan Potassium*) 50 Mg Tablet, 50 MG PO DAILY, TAB 08/23/18 Discontinued Scripts Carvedilol* (Carvedilol*) 12.5 Mg Tablet, 25 MG PO BID, #60 TAB Prov:CLARK,CHRISTEN V. COLD TYPE ARTIST 08/26/18 Medications Current Medications Albuterol (Ventolin Hfa) 2 puff Q4H INH ; Start 09/28/18 at 21:00 Nifedipine (Procardia Xl) 30 mg DAILY PO ; Start 09/29/18 at 09:00 Carvedilol (Coreg) 25 mg BID PO Last administered on 09/29/18at 01:05; Admin Dose 25 MG; Start 09/28/18 at 21:00 IV Flush (NS 3 ml) 3 ml PER PROTOCOL IV ; Start 09/28/18 at 21:00 Ondansetron HCl (Zofran Inj) 4 mg Q6H PRN IV NAUSEA/VOMITING; Start 09/28/18 at 21:00 Acetaminophen (Tylenol Tab) 650 mg Q6H PRN PO .PAIN 1-3 OR TEMP; Start 09/28/18 at 21:00 Morphine Sulfate (morphine) 2 mg Q4H PRN IV .PAIN 7-10; Start 09/28/18 at 21:00 Docusate Sodium (Colace) 100 mg Q12H PRN PO .CONSTIPATION; Start 09/28/18 at 21:00 Bisacodyl (Dulcolax) 5 mg DAILY PRN PO .CONSTIPATION; Start 09/28/18 at 21:00 Allergies: Coded Allergies: No Known Allergies (Verified Allergy, Unknown, 09/28/18) Social History Alcohol Use: sober Smoking Status: Former smoker Drug Use: none Exam/Review of Systems Vital Signs Vitals Vital Signs Date Temp Pulse Resp B/P (MAP) Pulse Ox O2 O2 Flow FiO2 Time Delivery Rate 09/29/18 73 08:13 09/29/18 98.0 20 140/67 96 Room Air 07:42 (91) Intake and Output 09/28/18 09/28/18 09/29/18 1515:00 23:00 07:00 IntakeIntake Total 350 ml 150 ml BalanceBalance 350 ml 150 ml Exam Exam General: no acute distress HEENT: NC/AT. pupils are equal. round. Chest: Status post hemodialysis access placement in left subclavian area NECK: NO JVD. no stridor. CV: RRR. systolic murmur; no gallop or rubs. PULM: no wheezing or rhonchi. GI: SOFT, NT, ND, no rebound or guarding Extremity: trace B/L LE edema. no clubbing. neuro: awake and alert, OX3. Psych: calm and pleasant rectal: deferred : normal Abdominal CT shows: Partially visualized focal consolidation in the lingula. Small kidneys containing few cysts, compatible with the patient's history of end-stage renal disease. Colonic diverticulosis. Atherosclerotic disease throughout the arterial vasculature and degenerative changes in the spine. Review of the old chart showed echocardiogram done in July 2018 which was personally reviewed showed: Normal left ventricular systolic function. Normal left ventricular cavity size. Moderate concentric left ventricular hypertrophy. Ejection fraction is visually estimated at 65 %. Tissue Doppler/Mitral Doppler indices are consistent with impaired relaxation (Stage I diastolic dysfunction). There is moderate enlargement of left atrium. Mild mitral leaflet calcification. Moderate mitral annular calcification. Trace mitral regurgitation. Normal appearance of the aortic valve. No significant aortic stenosis or insufficiency. Normal appearance of the tricuspid valve. Estimated peak PA systolic pressure 43 mmHg. There is trace tricuspid regurgitation. Labs Result Diagram: 09/29/18 0729 09/29/18 0729 Results 24hrs Laboratory Tests Test 09/28/18 14:43 09/29/18 00:48 09/29/18 07:29 White Blood Count 5.6 6.7 Red Blood Count 1.96 #L 2.57 #L Hemoglobin 6.2 #*L 7.1 L 8.0 L Hematocrit 18.6 #L 20.5 L 23.4 L Mean Corpuscular Volume 94.9 91.1 Mean Corpuscular Hemoglobin 31.6 31.1 Mean Corpuscular Hemoglobin Concent 33.3 34.2 Red Cell Distribution Width 17.0 H 15.6 H Platelet Count 135 #L 105 #L Mean Platelet Volume 10.4 10.4 Immature Granulocytes % 0.400 0.300 Neutrophils % 63.7 69.9 Segmented Neutrophils % (Manual) 62 Band Neutrophils % (Manual) 2 Lymphocytes % 17.4 12.8 L Lymphocytes % (Manual) 17 Monocytes % 10.5 8.9 Monocytes % (Manual) 8 Eosinophils % 7.6 H 7.7 H Eosinophils % (Manual) 11 H Basophils % 0.4 0.4 Nucleated Red Blood Cells % 0.0 0.0 Immature Granulocytes # 0.020 0.020 Neutrophils # 3.6 4.7 Neutrophils # (Manual) 3.5 Band Neutrophils # 0.1 Lymphocytes (Manual) 0.9 Lymphocytes # 1.0 0.9 Monocytes # 0.6 0.6 Monocytes # (Manual) 0.4 Eosinophils # 0.4 0.5 Basophils # 0.0 0.0 Nucleated Red Blood Cells # 0.0 0.0 Pathologist Review (Hematology) YES Platelet Estimate DECREASED Polychromasia 2+ Hypochromasia 3+ Poikilocytosis 3+ Anisocytosis 3+ Microcytosis 3+ Prothrombin Time 14.0 Prothrombin Time Ratio 1.1 INR International Normalized Ratio 1.07 Activated Partial Thromboplast Time 31.8 Sodium Level 139 136 Potassium Level 4.8 5.8 H Chloride Level 98 100 Carbon Dioxide Level 28 24 Anion Gap 13 12 Blood Urea Nitrogen 54 H 65 H Creatinine 7.27 H 8.50 H Est Glomerular Filtrat Rate mL/min 8 L 6 L Glucose Level 105 88 Calcium Level 8.0 L 7.7 L Total Bilirubin 0.1 L 0.6 Direct Bilirubin 0.00 0.00 Indirect Bilirubin 0.1 0.6 Aspartate Amino Transf (AST/SGOT) 17 18 Alanine Aminotransferase (ALT/SGPT) 16 17 Alkaline Phosphatase 70 57 Troponin I 0.016 Total Protein 6.5 5.6 L Albumin 3.5 3.2 L Globulin 3.00 2.40 Albumin/Globulin Ratio 1.16 1.33 Magnesium Level 2.2 Medications Medications Current Medications Albuterol (Ventolin Hfa) 2 puff Q4H INH ; Start 09/28/18 at 21:00 Nifedipine (Procardia Xl) 30 mg DAILY PO ; Start 09/29/18 at 09:00 Carvedilol (Coreg) 25 mg BID PO Last administered on 09/29/18at 01:05; Admin Dose 25 MG; Start 09/28/18 at 21:00 IV Flush (NS 3 ml) 3 ml PER PROTOCOL IV ; Start 09/28/18 at 21:00 Ondansetron HCl (Zofran Inj) 4 mg Q6H PRN IV NAUSEA/VOMITING; Start 09/28/18 at 21:00 Acetaminophen (Tylenol Tab) 650 mg Q6H PRN PO .PAIN 1-3 OR TEMP; Start 09/28/18 at 21:00 Morphine Sulfate (morphine) 2 mg Q4H PRN IV .PAIN 7-10; Start 09/28/18 at 21:00 Docusate Sodium (Colace) 100 mg Q12H PRN PO .CONSTIPATION; Start 09/28/18 at 21:00 Bisacodyl (Dulcolax) 5 mg DAILY PRN PO .CONSTIPATION; Start 09/28/18 at 21:00 SOUTH AMAYA MD September 29, 2018 09:56
[2018-09-29] MEDS ORDERED: SOD CHLORIDE 0.9% 250 ML IV* ONE (10:17)
--- NOTE | 2018-09-29 10:44 | PN ---
Date/Time of Note Date/Time of Note DATE: 09/29/18 TIME: 10:44 Assessment/Plan VTE Prophylaxis SCD applied (from Nsg): Yes Pharmacological prophylaxis: NA/contraindicated Pharm contraindication: bleeding Lines/Catheters IV Catheter Type (from Nrs): PERMA CATH Assessment/Plan Hospital Course SUBJECTIVE: Denies any complaints at this time. OBJECTIVE: Physical Exam General: Adequately build 67 year-old male lying in bed in no apparent distress. HEENT: Normocephalic, atraumatic. Eyes: Anicteric sclerae, conjunctivae clear. ENT: Nasal septum midline, oral mucosa moist. Neck supple. Respiratory: Bilaterally clear breath sounds. No use of accessory muscles of respiration. No adventitious breath sounds. Cardiovascular: S1, S2 heard. Regular rate and rhythm. Abdomen: Soft, nontender, and nondistended. Bowel sounds positive in all 4 quadrants. Genitourinary: Deferred. Extremities: No cyanosis, no clubbing, no edema. Peripheral pulses palpable. Neurologic: Cranial nerves II through XII grossly intact. The patient is awake, alert, and oriented. Skin: Normal skin turgor. No skin rashes. Labs & Vitals per chart ASSESSMENT & PLAN This is a 67-year-old male with comorbidities including end-stage renal disease on hemodialysis, CAD status post stenting to the RCA on 08/24/2018, hypertension, pulmonary hypertension (PA systolic pressure 43 mmHg), and anemia. The patient came to the emergency room with chief complaint of hematochezia with underlying anemia (hemoglobin 6.2). The patient was admitted to inpatient setting for further treatment and evaluation. 1. Hematochezia. -Status post blood transfusion. -Etiology unclear. -The patient has been on dual antiplatelet therapy and in addition he was taking factor Xa inhibitors inadvertently. -All anticoagulants has been withheld. -Continue monitoring H&H closely. -Gastroenterology has been consulted. 2. Anemia of acute blood loss. -Status post PRBC transfusion. -Management as per #1. 3. CAD. -Status post RCA stenting with a drug-eluting stent on 08/24/2018. -Cardiology following. -Continue beta-blockers and statins. -Resume dual antiplatelet therapy as soon as possible as per cardiology. 4. Essential hypertension. -Continue antihypertensives. 5. End-stage renal disease on hemodialysis. Nephrology has been consulted. 6. Fluids, electrolytes, and nutrition. -Renal diet. 7. DVT prophylaxis. -Bilateral SCDs. 8. Plan. -Continue to monitor H&H closely. -Hold anticoagulants. -Await gastroenterology evaluation. The patient was seen in collaboration with Dr. Flanagan. Result Diagram: 09/29/18 0729 09/29/18 0729 Results 24hrs Laboratory Tests Test 09/28/18 14:43 09/29/18 00:48 09/29/18 07:29 White Blood Count 5.6 6.7 Red Blood Count 1.96 #L 2.57 #L Hemoglobin 6.2 #*L 7.1 L 8.0 L Hematocrit 18.6 #L 20.5 L 23.4 L Mean Corpuscular Volume 94.9 91.1 Mean Corpuscular Hemoglobin 31.6 31.1 Mean Corpuscular Hemoglobin Concent 33.3 34.2 Red Cell Distribution Width 17.0 H 15.6 H Platelet Count 135 #L 105 #L Mean Platelet Volume 10.4 10.4 Immature Granulocytes % 0.400 0.300 Neutrophils % 63.7 69.9 Segmented Neutrophils % (Manual) 62 Band Neutrophils % (Manual) 2 Lymphocytes % 17.4 12.8 L Lymphocytes % (Manual) 17 Monocytes % 10.5 8.9 Monocytes % (Manual) 8 Eosinophils % 7.6 H 7.7 H Eosinophils % (Manual) 11 H Basophils % 0.4 0.4 Nucleated Red Blood Cells % 0.0 0.0 Immature Granulocytes # 0.020 0.020 Neutrophils # 3.6 4.7 Neutrophils # (Manual) 3.5 Band Neutrophils # 0.1 Lymphocytes (Manual) 0.9 Lymphocytes # 1.0 0.9 Monocytes # 0.6 0.6 Monocytes # (Manual) 0.4 Eosinophils # 0.4 0.5 Basophils # 0.0 0.0 Nucleated Red Blood Cells # 0.0 0.0 Pathologist Review (Hematology) YES Platelet Estimate DECREASED Polychromasia 2+ Hypochromasia 3+ Poikilocytosis 3+ Anisocytosis 3+ Microcytosis 3+ Prothrombin Time 14.0 Prothrombin Time Ratio 1.1 INR International Normalized Ratio 1.07 Activated Partial Thromboplast Time 31.8 Sodium Level 139 136 Potassium Level 4.8 5.8 H Chloride Level 98 100 Carbon Dioxide Level 28 24 Anion Gap 13 12 Blood Urea Nitrogen 54 H 65 H Creatinine 7.27 H 8.50 H Est Glomerular Filtrat Rate mL/min 8 L 6 L Glucose Level 105 88 Calcium Level 8.0 L 7.7 L Total Bilirubin 0.1 L 0.6 Direct Bilirubin 0.00 0.00 Indirect Bilirubin 0.1 0.6 Aspartate Amino Transf (AST/SGOT) 17 18 Alanine Aminotransferase (ALT/SGPT) 16 17 Alkaline Phosphatase 70 57 Troponin I 0.016 Total Protein 6.5 5.6 L Albumin 3.5 3.2 L Globulin 3.00 2.40 Albumin/Globulin Ratio 1.16 1.33 Magnesium Level 2.2 Exam/Review of Systems Exam Vitals Vital Signs Date Temp Pulse Resp B/P (MAP) Pulse Ox O2 O2 Flow FiO2 Time Delivery Rate 09/29/18 73 08:13 09/29/18 98.0 20 140/67 96 Room Air 07:42 (91) Intake and Output 09/28/18 09/28/18 09/29/18 1515:00 23:00 07:00 IntakeIntake Total 350 ml 150 ml BalanceBalance 350 ml 150 ml Results Results 24hrs Laboratory Tests Test 09/28/18 14:43 09/29/18 00:48 09/29/18 07:29 White Blood Count 5.6 6.7 Red Blood Count 1.96 #L 2.57 #L Hemoglobin 6.2 #*L 7.1 L 8.0 L Hematocrit 18.6 #L 20.5 L 23.4 L Mean Corpuscular Volume 94.9 91.1 Mean Corpuscular Hemoglobin 31.6 31.1 Mean Corpuscular Hemoglobin Concent 33.3 34.2 Red Cell Distribution Width 17.0 H 15.6 H Platelet Count 135 #L 105 #L Mean Platelet Volume 10.4 10.4 Immature Granulocytes % 0.400 0.300 Neutrophils % 63.7 69.9 Segmented Neutrophils % (Manual) 62 Band Neutrophils % (Manual) 2 Lymphocytes % 17.4 12.8 L Lymphocytes % (Manual) 17 Monocytes % 10.5 8.9 Monocytes % (Manual) 8 Eosinophils % 7.6 H 7.7 H Eosinophils % (Manual) 11 H Basophils % 0.4 0.4 Nucleated Red Blood Cells % 0.0 0.0 Immature Granulocytes # 0.020 0.020 Neutrophils # 3.6 4.7 Neutrophils # (Manual) 3.5 Band Neutrophils # 0.1 Lymphocytes (Manual) 0.9 Lymphocytes # 1.0 0.9 Monocytes # 0.6 0.6 Monocytes # (Manual) 0.4 Eosinophils # 0.4 0.5 Basophils # 0.0 0.0 Nucleated Red Blood Cells # 0.0 0.0 Pathologist Review (Hematology) YES Platelet Estimate DECREASED Polychromasia 2+ Hypochromasia 3+ Poikilocytosis 3+ Anisocytosis 3+ Microcytosis 3+ Prothrombin Time 14.0 Prothrombin Time Ratio 1.1 INR International Normalized Ratio 1.07 Activated Partial Thromboplast Time 31.8 Sodium Level 139 136 Potassium Level 4.8 5.8 H Chloride Level 98 100 Carbon Dioxide Level 28 24 Anion Gap 13 12 Blood Urea Nitrogen 54 H 65 H Creatinine 7.27 H 8.50 H Est Glomerular Filtrat Rate mL/min 8 L 6 L Glucose Level 105 88 Calcium Level 8.0 L 7.7 L Total Bilirubin 0.1 L 0.6 Direct Bilirubin 0.00 0.00 Indirect Bilirubin 0.1 0.6 Aspartate Amino Transf (AST/SGOT) 17 18 Alanine Aminotransferase (ALT/SGPT) 16 17 Alkaline Phosphatase 70 57 Troponin I 0.016 Total Protein 6.5 5.6 L Albumin 3.5 3.2 L Globulin 3.00 2.40 Albumin/Globulin Ratio 1.16 1.33 Magnesium Level 2.2 Medications Medication Current Medications Albuterol (Ventolin Hfa) 2 puff Q4H INH ; Start 09/28/18 at 21:00 Nifedipine (Procardia Xl) 30 mg DAILY PO ; Start 09/29/18 at 09:00 Carvedilol (Coreg) 25 mg BID PO Last administered on 09/29/18at 01:05; Admin Dose 25 MG; Start 09/28/18 at 21:00 IV Flush (NS 3 ml) 3 ml PER PROTOCOL IV ; Start 09/28/18 at 21:00 Ondansetron HCl (Zofran Inj) 4 mg Q6H PRN IV NAUSEA/VOMITING; Start 09/28/18 at 21:00 Acetaminophen (Tylenol Tab) 650 mg Q6H PRN PO .PAIN 1-3 OR TEMP; Start 09/28/18 at 21:00 Morphine Sulfate (morphine) 2 mg Q4H PRN IV .PAIN 7-10; Start 09/28/18 at 21:00 Docusate Sodium (Colace) 100 mg Q12H PRN PO .CONSTIPATION; Start 09/28/18 at 21:00 Bisacodyl (Dulcolax) 5 mg DAILY PRN PO .CONSTIPATION; Start 09/28/18 at 21:00 ARNALDO MONROE NP September 29, 2018 10:44
--- NOTE | 2018-09-29 13:28 | CONS ---
DATE OF ADMISSION: 09/28/2018 DATE OF CONSULTATION: REASON FOR CONSULTATION: End-stage renal disease. HISTORY OF PRESENT ILLNESS: This 67-year-old man was admitted through the emergency room after he pr esented with rectal bleeding. The patient, in the emergency room, was found to have a hemoglobin of 6.2. He was given 2 units of blood, and his hemoglobin is now 8.0. I saw this patient back in July when he was admitted for chest pain and was found to be volume overloaded with congestive heart fail ure and an exacerbation of CHF due to an NSTEMI. The patient eventually underwent a coronary cathete rization and had a stent placed to the right coronary artery by . The patient was discharge d on aspirin and Plavix. Then, he developed bright red blood per rectum yesterday, had multiple jesi l movements and was admitted. The patient is on maintenance hemodialysis and is usually dialyzed Thu, Thursday, Thursday and is due for dialysis today. He dialyzes in the [facility] unit . The patient now is awake and alert. He denies any chest pain or shortness of breath. He has a le ft-sided internal jugular [id number], which he uses for dialysis. PAST MEDICAL HISTORY: Remarkable for coronary artery disease, end-stage renal disease, hypertension, anemia of chronic kidney disease, gout, gastroesophageal reflux disease, hyperlipidemia. PAST SURGICAL HISTORY: He has a left upper arm AV fistula, which is not working. SOCIAL HISTORY: He does not smoke, does not drink alcohol, does not use illicit drugs. CURRENT MEDICATIONS: 1. Albuterol. 2. Ventolin inhaler. 3. Plavix 75 mg a day. 4. Carvedilol 25 mg twice a day. 5. Nifedipine extended release 30 mg a day. 6. Aspirin 81 mg a day. 7. Bumex 1 mg a day. 8. Vitamin D 5000 units a day. PHYSICAL EXAMINATION: GENERAL: At this time reveals a well-developed man in no apparent distress. VITAL SIGNS: Temperature 98, pulse is 73, respirations 21, blood pressure 140/67, O2 saturation of 9 6% on room air. HEAD: Normocephalic. EYES: Extraocular muscles intact. NOSE AND MOUTH: Normal. NECK: Supple. No neck vein distention. LUNGS: Clear to auscultation. HEART: Regular rhythm. No murmurs, gallops, or rubs. ABDOMEN: Soft, nontender. No masses or megaly. CHEST: He does have a left upper chest Perm-A-Cath. EXTREMITIES: No peripheral edema. NEUROLOGIC: Grossly intact. IMPRESSION: 1. End-stage renal disease, on maintenance hemodialysis. The patient is due for dialysis today. He usually dialyzes Thursday, Thursday, Thursday. 2. Coronary artery disease. 3. Gastrointestinal bleeding. He was on Plavix and aspirin, which have been discontinued. 4. Hypertension. PLAN: 1. Arrange for emergent hemodialysis. 2. Transfuse 1 more unit of blood during dialysis. 3. I will follow the patient along with you. Dictated By: CHANDLER LIMA MD ND/NTS Conf#: [id number] DID#: [id number] CC: AZALEA TAYLOR MD;*EndCC*
--- NOTE | 2018-09-29 13:51 | CONS ---
Assessment/Plan Assessment/Plan Hospital Course (Demo Recall) Summary Assessment and Plan: Assessment: Hematochezia Thrombocytopenia Acute on chronic anemia ESRD on HD History of recent/July 2018 non-ST elevation myocardial infarction -S/P PCI of the right coronary artery using a drug-eluting stent July [address] Beaver CAD Dyslipidemia HTN Plan: Cardiac clearance Will tentatively plan for EGD/Colonoscopy 09/30/18- pending clearance Endoscopy - risks/benefits/alternatives/indications of procedure and sedation/anesthesia discussed with patient who states understanding and gives informed consent to proceed. Patient seen in collaboration with Dr. Martínez CC: ARINA MARTÍNEZ MD ; Consultation Date/Type/Reason Admit Date/Time Date of Consultation: September 29, 2018 Type of Consult GI Reason for Consultation Hematochezia Date/Time of Note DATE: 09/29/18 TIME: 13:45 Hx of Present Illness A 67-year-old male who presented to the hospital with complaints of bright red blood per rectum with multiple episodes yesterday. With work-up in the ED patient found to have severe normocytic anemia hemoglobin 6.2 status post 3 units of blood transfusion in response of hemoglobin to 8.0 additionally patient is noted to have thrombocytopenia with a platelet count 105 today he was recently hospitalized for a non-STEMI status post PCI of the right coronary artery using a drug-eluting stent on August 24, 2018 since then patient has been on Plavix, aspirin and Eliquis despite being told to stop Eliquis by his technical assoc at this time she has been consulted for further evaluation guarding hematochezia. At time evaluation patient is currently receiving dialysis he is awake alert and oriented primarily Amharic-speaking veterinary parasitologist was used. He denies nausea/vomiting or abdominal pain he states his stool is both red and black and he denies previous history of upper endoscopy or colonoscopy. We discussed plan for cardiac clearance and will proceed with the EGD/colonoscopy essentially tomorrow I reviewed risk/benefits of sedation procedure he verbalized understanding is agreeable to move forward with both procedure Review of Systems: A 12 system, review was conducted and is negative except as noted in the HPI or here. Past Medical History Home Meds Active Scripts Aspirin* (Aspirin* EC) 81 Mg Tablet., 81 MG PO DAILY, #30 TAB Prov:CHRISTEN CLARK V[employer]ER 08/26/18 Clopidogrel Bisulfate (Clopidogrel) 75 Mg Tablet, 75 MG PO DAILY, #30 TAB Prov:CHRISTEN CLARK V. [employer]ER 08/26/18 Reported Medications Carvedilol* (Carvedilol*) 25 Mg Tablet, 25 MG PO BID, #60 TAB 09/28/18 Cholecalciferol (Vitamin D3) 5,000 Unit Tablet, 5000 UNIT PO DAILY, TAB 08/23/18 Nifedipine* (Nifedipine ER*) 30 Mg Tablet.sa, 30 MG PO DAILY, TAB.SA 08/23/18 Bumetanide* (Bumetanide*) 1 Mg Tablet, 1 MG PO DAILY, TAB 08/23/18 Albuterol Sulfate* (Ventolin HFA*) 18 Gm Hfa.aer.ad, 2 PUFF INHALATION Q4H, #1 INHALER 08/23/18 Discontinued Reported Medications Atorvastatin* (Atorvastatin*) 80 Mg Tablet, 80 MG PO QHS, #30 TAB 08/23/18 Losartan Potassium* (Losartan Potassium*) 50 Mg Tablet, 50 MG PO DAILY, TAB 08/23/18 Discontinued Scripts Carvedilol* (Carvedilol*) 12.5 Mg Tablet, 25 MG PO BID, #60 TAB Prov:CHRISTEN CLARK [employer] 08/26/18 Medications Current Medications Albuterol (Ventolin Hfa) 2 puff Q4H INH ; Start 09/28/18 at 21:00 Nifedipine (Procardia Xl) 30 mg DAILY PO ; Start 09/29/18 at 09:00 Carvedilol (Coreg) 25 mg BID PO Last administered on 09/29/18at 01:05; Admin Dose 25 MG; Start 09/28/18 at 21:00 IV Flush (NS 3 ml) 3 ml PER PROTOCOL IV ; Start 09/28/18 at 21:00 Ondansetron HCl (Zofran Inj) 4 mg Q6H PRN IV NAUSEA/VOMITING; Start 09/28/18 at 21:00 Acetaminophen (Tylenol Tab) 650 mg Q6H PRN PO .PAIN 1-3 OR TEMP; Start 09/28/18 at 21:00 Morphine Sulfate (morphine) 2 mg Q4H PRN IV .PAIN 7-10; Start 09/28/18 at 21:00 Docusate Sodium (Colace) 100 mg Q12H PRN PO .CONSTIPATION; Start 09/28/18 at 21:00 Bisacodyl (Dulcolax) 5 mg DAILY PRN PO .CONSTIPATION; Start 09/28/18 at 21:00 Atorvastatin Calcium (Lipitor) 40 mg HS PO ; Start 09/29/18 at 21:00 Heparin Sodium (Porcine) (Heparin (1000 Units/ml)) 4,800 unit AFTER DIALYSIS CATHETER ; Start 09/29/18 at 13:30; Status UNV Allergies: Coded Allergies: No Known Allergies (Verified Allergy, Unknown, 09/28/18) Social History Alcohol Use: sober Smoking Status: Former smoker Drug Use: none Exam/Review of Systems Exam Vitals Vital Signs Date Temp Pulse Resp B/P (MAP) Pulse Ox O2 O2 Flow FiO2 Time Delivery Rate 09/29/18 65 13:16 09/29/18 98.3 20 149/69 98 Room Air 11:26 (95) Intake and Output 09/28/18 09/28/18 09/29/18 1515:00 23:00 07:00 IntakeIntake Total 350 ml 150 ml BalanceBalance 350 ml 150 ml Exam PHYSICAL EXAMINATION: GENERAL: Alert & oriented x 3, in no acute distress SKIN: No lesions HEAD: Normocephalic, atraumatic, no tenderness. EYES: Pupils equal reactive to light, non-icteric, no discharge. EARS/NOSE AND THROAT: Ears normal, nose normal NECK: Supple, no masses CHEST: Inspection within normal limits. CARDIOVASCULAR: Heart: Regular rate and rhythm RESPIRATORY: Lungs clear to auscultation GASTROINTESTINAL AND LIVER: Abdomen: Soft, non tenderness, non-distended, no hernias, no masses, no organomegaly, no ascites, no guarding, no rebound tenderness, normoactive bowel sounds. Rectal: Deferred. EXTREMITIES: No cyanosis, clubbing or edema. Results Result Diagram: 09/29/18 0729 09/29/18 07 Results 24hrs Laboratory Tests Test 09/28/18 14:43 09/29/18 00:48 09/29/18 07:29 White Blood Count 5.6 6.7 Red Blood Count 1.96 #L 2.57 #L Hemoglobin 6.2 #*L 7.1 L 8.0 L Hematocrit 18.6 #L 20.5 L 23.4 L Mean Corpuscular Volume 94.9 91.1 Mean Corpuscular Hemoglobin 31.6 31.1 Mean Corpuscular Hemoglobin Concent 33.3 34.2 Red Cell Distribution Width 17.0 H 15.6 H Platelet Count 135 #L 105 #L Mean Platelet Volume 10.4 10.4 Immature Granulocytes % 0.400 0.300 Neutrophils % 63.7 69.9 Segmented Neutrophils % (Manual) 62 Band Neutrophils % (Manual) 2 Lymphocytes % 17.4 12.8 L Lymphocytes % (Manual) 17 Monocytes % 10.5 8.9 Monocytes % (Manual) 8 Eosinophils % 7.6 H 7.7 H Eosinophils % (Manual) 11 H Basophils % 0.4 0.4 Nucleated Red Blood Cells % 0.0 0.0 Immature Granulocytes # 0.020 0.020 Neutrophils # 3.6 4.7 Neutrophils # (Manual) 3.5 Band Neutrophils # 0.1 Lymphocytes (Manual) 0.9 Lymphocytes # 1.0 0.9 Monocytes # 0.6 0.6 Monocytes # (Manual) 0.4 Eosinophils # 0.4 0.5 Basophils # 0.0 0.0 Nucleated Red Blood Cells # 0.0 0.0 Pathologist Review (Hematology) YES Platelet Estimate DECREASED Polychromasia 2+ Hypochromasia 3+ Poikilocytosis 3+ Anisocytosis 3+ Microcytosis 3+ Prothrombin Time 14.0 Prothrombin Time Ratio 1.1 INR International Normalized Ratio 1.07 Activated Partial Thromboplast Time 31.8 Sodium Level 139 136 Potassium Level 4.8 5.8 H Chloride Level 98 100 Carbon Dioxide Level 28 24 Anion Gap 13 12 Blood Urea Nitrogen 54 H 65 H Creatinine 7.27 H 8.50 H Est Glomerular Filtrat Rate mL/min 8 L 6 L Glucose Level 105 88 Calcium Level 8.0 L 7.7 L Total Bilirubin 0.1 L 0.6 Direct Bilirubin 0.00 0.00 Indirect Bilirubin 0.1 0.6 Aspartate Amino Transf (AST/SGOT) 17 18 Alanine Aminotransferase (ALT/SGPT) 16 17 Alkaline Phosphatase 70 57 Troponin I 0.016 Total Protein 6.5 5.6 L Albumin 3.5 3.2 L Globulin 3.00 2.40 Albumin/Globulin Ratio 1.16 1.33 Magnesium Level 2.2 Medications Medication Current Medications Albuterol (Ventolin Hfa) 2 puff Q4H INH ; Start 09/28/18 at 21:00 Nifedipine (Procardia Xl) 30 mg DAILY PO ; Start 09/29/18 at 09:00 Carvedilol (Coreg) 25 mg BID PO Last administered on 09/29/18at 01:05; Admin Dose 25 MG; Start 09/28/18 at 21:00 IV Flush (NS 3 ml) 3 ml PER PROTOCOL IV ; Start 09/28/18 at 21:00 Ondansetron HCl (Zofran Inj) 4 mg Q6H PRN IV NAUSEA/VOMITING; Start 09/28/18 at 21:00 Acetaminophen (Tylenol Tab) 650 mg Q6H PRN PO .PAIN 1-3 OR TEMP; Start 09/28/18 at 21:00 Morphine Sulfate (morphine) 2 mg Q4H PRN IV .PAIN 7-10; Start 09/28/18 at 21:00 Docusate Sodium (Colace) 100 mg Q12H PRN PO .CONSTIPATION; Start 09/28/18 at 21:00 Bisacodyl (Dulcolax) 5 mg DAILY PRN PO .CONSTIPATION; Start 09/28/18 at 21:00 Atorvastatin Calcium (Lipitor) 40 mg HS PO ; Start 09/29/18 at 21:00 Heparin Sodium (Porcine) (Heparin (1000 Units/ml)) 4,800 unit AFTER DIALYSIS CATHETER ; Start 09/29/18 at 13:30; Status FERNANDO WEST September 29, 2018 13:51
[2018-09-29] MEDS ORDERED: BISACODYL (EC) 5 MG TAB PO ONE (16:00)
[2018-09-29] MEDS: HEPARIN 1000 UNITS/ML 10 ML INJ CATHETER SCH (16:44)
[2018-09-29] MEDS ORDERED: PEG/ELECTROLYTES 4L BTL PO ONE (17:00)
[2018-09-29] MEDS: ATORVASTATIN 40 MG TAB PO SCH (21:31)
[2018-09-29] MEDS ORDERED: hydrALAzine 20 MG INJ IV PRN (22:00)
[2018-09-30] VITALS (20 sets, daily range): BP systolic 125–166; BP diastolic 50–76; PULSE 67–80; RESP 13–24
[2018-09-30] MEDS: ALBUTEROL HFA 8 GM INHALER INH SCH ×6 (01:00→20:23)
[2018-09-30] MEDS ORDERED: BISACODYL (EC) 5 MG TAB PO ONE (06:00)
[2018-09-30] MEDS ORDERED: PEG/ELECTROLYTES 4L BTL PO ONE (06:00)
[2018-09-30] MEDS ORDERED: PROPOFOL 200 MG INJ ONE (07:00)
--- NOTE | 2018-09-30 08:07 | CONS ---
Consult Date/Type/Reason Admit Date/Time Sep 28, 2018 at 19:19 Initial Consult Date 09/29/18 Type of Consultation: cv Requesting Provider: AZALEA TAYLOR Date/Time of Note DATE: 09/30/18 TIME: 08:03 Subjective Cardiology follow-up progress note Subjective: Discussed with the staff telemetry was reviewed patient remains sinus rhythm. Denies any chest pain or pressure to me Patient denies any more bleeding to me Objective: General: no acute distress HEENT: NC/AT. pupils are equal. round. Chest: Status post hemodialysis access placement in left subclavian area NECK: NO JVD. no stridor. CV: RRR. systolic murmur; no gallop or rubs. PULM: no wheezing or rhonchi. GI: SOFT, NT, ND, no rebound or guarding Extremity: trace B/L LE edema. no clubbing. neuro: awake and alert, OX3. Psych: calm and pleasant rectal: deferred : normal Abdominal CT shows: Partially visualized focal consolidation in the lingula. Small kidneys containing few cysts, compatible with the patient's history of end-stage renal disease. Colonic diverticulosis. Atherosclerotic disease throughout the arterial vasculature and degenerative changes in the spine. Review of the old chart showed echocardiogram done in July 2018 which was personally reviewed showed: Normal left ventricular systolic function. Normal left ventricular cavity size. Moderate concentric left ventricular hypertrophy. Ejection fraction is visually estimated at 65 %. Tissue Doppler/Mitral Doppler indices are consistent with impaired relaxation (Stage I diastolic dysfunction). There is moderate enlargement of left atrium. Mild mitral leaflet calcification. Moderate mitral annular calcification. Trace mitral regurgitation. Normal appearance of the aortic valve. No significant aortic stenosis or insufficiency. Normal appearance of the tricuspid valve. Estimated peak PA systolic pressure 43 mmHg. There is trace tricuspid regurgitation. Objective Vitals Vital Signs Date Temp Pulse Resp B/P (MAP) Pulse Ox O2 O2 Flow FiO2 Time Delivery Rate 09/30/18 98.3 69 20 166/75 95 Room Air 07:17 (105) Intake and Output 09/29/18 09/29/18 09/30/18 1515:00 23:00 07:00 IntakeIntake Total 720 ml 2900 ml OutputOutput Total 200 ml 4850 ml BalanceBalance -200 ml -4130 ml 2900 ml Results/Medications Result Diagram: 09/30/18 0610 09/30/18 0610 Results 24 hrs Laboratory Tests Test 09/29/18 16:52 09/29/18 22:14 09/30/18 06:10 Hemoglobin 9.8 #L 10.8 L 10.4 L Hematocrit 28.1 #L 31.3 L 30.0 L White Blood Count 7.0 Red Blood Count 3.31 #L Mean Corpuscular Volume 90.6 Mean Corpuscular Hemoglobin 31.4 Mean Corpuscular Hemoglobin Concent 34.7 Red Cell Distribution Width 15.4 H Platelet Count 131 #L Mean Platelet Volume 11.3 H Immature Granulocytes % 0.000 L Neutrophils % 62.6 Lymphocytes % 15.8 Monocytes % 10.0 Eosinophils % 11.0 H Basophils % 0.6 Nucleated Red Blood Cells % 0.0 Immature Granulocytes # 0.000 Neutrophils # 4.4 Lymphocytes # 1.1 Monocytes # 0.7 Eosinophils # 0.8 H Basophils # 0.0 Nucleated Red Blood Cells # 0.0 Sodium Level 141 Potassium Level 4.7 Chloride Level 98 Carbon Dioxide Level 31 Anion Gap 12 Blood Urea Nitrogen 31 #H Creatinine 6.53 H Est Glomerular Filtrat Rate mL/min 9 L Glucose Level 85 Calcium Level 9.0 Phosphorus Level 5.1 H Magnesium Level 2.1 Total Bilirubin 0.6 Direct Bilirubin 0.00 Indirect Bilirubin 0.6 Aspartate Amino Transf (AST/SGOT) 26 Alanine Aminotransferase (ALT/SGPT) 16 Alkaline Phosphatase 75 Creatine Kinase 156 Total Protein 7.1 # Albumin 3.8 Globulin 3.30 H Albumin/Globulin Ratio 1.15 Triglycerides Level 200 H Cholesterol Level 145 LDL Cholesterol, Calculated 77 HDL Cholesterol 28 L Cholesterol/HDL Ratio 5.1 Home Meds Active Scripts Aspirin* (Aspirin* EC) 81 Mg Tablet.dr, 81 MG PO DAILY, #30 TAB Prov:CHRISTEN CLARK V. [employer] 08/26/18 Clopidogrel Bisulfate (Clopidogrel) 75 Mg Tablet, 75 MG PO DAILY, #30 TAB Prov:CHRISTEN CLARK [employer] 08/26/18 Reported Medications Carvedilol* (Carvedilol*) 25 Mg Tablet, 25 MG PO BID, #60 TAB 09/28/18 Cholecalciferol (Vitamin D3) 5,000 Unit Tablet, 5000 UNIT PO DAILY, TAB 08/23/18 Nifedipine* (Nifedipine ER*) 30 Mg Tablet.sa, 30 MG PO DAILY, TAB.SA 08/23/18 Bumetanide* (Bumetanide*) 1 Mg Tablet, 1 MG PO DAILY, TAB 08/23/18 Albuterol Sulfate* (Ventolin HFA*) 18 Gm Hfa.aer.ad, 2 PUFF INHALATION Q4H, #1 INHALER 08/23/18 Discontinued Reported Medications Atorvastatin* (Atorvastatin*) 80 Mg Tablet, 80 MG PO QHS, #30 TAB 08/23/18 Losartan Potassium* (Losartan Potassium*) 50 Mg Tablet, 50 MG PO DAILY, TAB 08/23/18 Discontinued Scripts Carvedilol* (Carvedilol*) 12.5 Mg Tablet, 25 MG PO BID, #60 TAB Prov:CHRISTEN CLARK V[employer] 08/26/18 Medications Current Medications Albuterol (Ventolin Hfa) 2 puff Q4H INH Last administered on 09/30/18at 05:13; Admin Dose 2 PUFF; Start 09/28/18 at 21:00 Nifedipine (Procardia Xl) 30 mg DAILY PO ; Start 09/29/18 at 09:00 Carvedilol (Coreg) 25 mg BID PO Last administered on 09/29/18at 21:32; Admin Dose 25 MG; Start 09/28/18 at 21:00 IV Flush (NS 3 ml) 3 ml PER PROTOCOL IV ; Start 09/28/18 at 21:00 Ondansetron HCl (Zofran Inj) 4 mg Q6H PRN IV NAUSEA/VOMITING; Start 09/28/18 at 21:00 Acetaminophen (Tylenol Tab) 650 mg Q6H PRN PO .PAIN 1-3 OR TEMP; Start 09/28/18 at 21:00 Morphine Sulfate (morphine) 2 mg Q4H PRN IV .PAIN 7-10; Start 09/28/18 at 21:00 Docusate Sodium (Colace) 100 mg Q12H PRN PO .CONSTIPATION; Start 09/28/18 at 21:00 Bisacodyl (Dulcolax) 5 mg DAILY PRN PO .CONSTIPATION; Start 09/28/18 at 21:00 Atorvastatin Calcium (Lipitor) 40 mg HS PO Last administered on 09/29/18at 21:31; Admin Dose 40 MG; Start 09/29/18 at 21:00 Heparin Sodium (Porcine) (Heparin (1000 Units/ml)) 4,800 unit AFTER DIALYSIS CATHETER Last administered on 09/29/18at 16:44; Admin Dose 4,800 UNIT; Start 09/29/18 at 13:30 Hydralazine HCl (Apresoline) 10 mg Q4H PRN IV ELEVATED BLOOD PRESSURE Last administered on 09/29/18at 23:37; Admin Dose 10 MG; Start 09/29/18 at 22:00 Assessment/Plan Hospital Course (Demo Recall) 1. GI bleed/rectal bleed 2. Severe anemia requiring transfusion 3. History of recent/July 2018 non-ST elevation myocardial infarction 4. Status post PCI of the right coronary artery using a drug-eluting stent on August 24, 2018 5. Renal failure on dialysis 6. Hypertension 7. Dyslipidemia 8. Cardiovascular preop evaluation for EGD Recommendation: Aspirin and Plavix is on hold currently due to concern about active bleeding. At least Plavix needs to be started as soon as possible today after endoscopy. GI work-up to be done as soon as possible today and Plavix to be started given his recent PCI Continue with the Coreg Continue with statin We will continue to monitor on telemetry. Hemodialysis as per renal. Transfusion as needed. Will defer to primary team Patient is otherwise currently optimized from the cardiac extent with low risk of cardiovascular event for endoscopy. No further cardiac work-up would be indicated however as mentioned above he needs to be started back on Plavix as soon as possible. In fact delay of endoscopy and therefore resumption of Plavix would be more harmful than beneficial Thank you for his referral. We will continue to follow along with you. SOUTH AMAYA MD [facility] SOUTH AMAYA MD September 30, 2018 08:07
[2018-09-30] MEDS: NIFEdipine (XL) 30 MG TAB PO SCH (08:39)
--- NOTE | 2018-09-30 10:30 | PN ---
Date/Time of Note Date/Time of Note DATE: 09/30/18 TIME: 10:29 Assessment/Plan VTE Prophylaxis Risk score (from Ns)>0 risk: 6 SCD applied (from [facility]): Yes Pharmacological prophylaxis: NA/contraindicated Pharm contraindication: bleeding Lines/Catheters IV C[facility]ter Type (from [facility]): Permacath Assessment/Plan Hospital Course SUBJECTIVE: Denies any rectal bleeding. OBJECTIVE: Physical Exam General: Adequately build 67 year-old male lying in bed in no apparent distress. HEENT: Normocephalic, atraumatic. Eyes: Anicteric sclerae, conjunctivae clear. ENT: Nasal septum midline, oral mucosa moist. Neck supple. Respiratory: Bilaterally clear breath sounds. No use of accessory muscles of respiration. No adventitious breath sounds. Cardiovascular: S1, S2 heard. Regular rate and rhythm. Abdomen: Soft, nontender, and nondistended. Bowel sounds positive in all 4 quadr ants. Genitourinary: Deferred. Extremities: No cyanosis, no clubbing, no edema. Peripheral pulses palpable. Neurologic: Cranial nerves II through XII grossly intact. The patient is awake, alert, and oriented. Skin: Normal skin turgor. No skin rashes. Labs & Vitals per chart ASSESSMENT & PLAN This is a 67-year-old male with comorbidities including end-stage renal disease on hemodialysis, CAD status post stenting to the RCA on 08/24/2018, hypertension, pulmonary hypertension (PA systolic pressure 43 mmHg), and anemia. The patient came to the emergency room with chief complaint of hematochezia with underlying anemia (hemoglobin 6.2). The patient was admitted to inpatient setting for further treatment and evaluation. 1. Hematochezia. -Status post blood transfusion. -Etiology unclear. -The patient has been on dual antiplatelet therapy and in addition he was taking factor Xa inhibitors inadvertently. -All anticoagulants has been withheld. -Continue monitoring H&H closely. -Gastroenterology has been consulted and planning on esophagogastroduodenoscopy and colonoscopy. 2. Anemia of acute blood loss. -Status post PRBC transfusion. -Management as per #1. 3. CAD. -Status post RCA stenting with a drug-eluting stent on 08/24/2018. -Cardiology following. -Continue beta-blockers and statins. -Resume dual antiplatelet therapy as soon as possible as per cardiology. 4. Essential hypertension. -Continue antihypertensives. 5. End-stage renal disease on hemodialysis. Nephrology has been consulted. 6. Fluids, electrolytes, and nutrition. -Renal diet. 7. DVT prophylaxis. -Bilateral SCDs. 8. Plan. -Continue to monitor H&H closely. -Hold anticoagulants. -Await esophagogastroduodenoscopy and colonoscopy. The patient was seen in collaboration with Dr. Flanagan. Result Diagram: 09/30/18 0610 09/30/18 0610 Results 24hrs Laboratory Tests Test 09/29/18 16:52 09/29/18 22:14 09/30/18 06:10 09/30/18 08:24 Hemoglobin 9.8 #L 10.8 L 10.4 L Hematocrit 28.1 #L 31.3 L 30.0 L White Blood Count 7.0 Red Blood Count 3.31 #L Mean Corpuscular 90.6 Volume Mean Corpuscular 31.4 Hemoglobin Mean Corpuscular 34.7 Hemoglobin Concent Red Cell 15.4 H Distribution Width Platelet Count 131 #L Mean Platelet 11.3 H Volume Immature 0.000 L Granulocytes % Neutrophils % 62.6 Lymphocytes % 15.8 Monocytes % 10.0 Eosinophils % 11.0 H Basophils % 0.6 Nucleated Red Blood 0.0 Cells % Immature 0.000 Granulocytes # Neutrophils # 4.4 Lymphocytes # 1.1 Monocytes # 0.7 Eosinophils # 0.8 H Basophils # 0.0 Nucleated Red Blood 0.0 Cells # Sodium Level 141 Potassium Level 4.7 Chloride Level 98 Carbon Dioxide 31 Level Anion Gap 12 Blood Urea Nitrogen 31 #H Creatinine 6.53 H Est Glomerular 9 L Filtrat Rate mL/min Glucose Level 85 Calcium Level 9.0 Phosphorus Level 5.1 H Magnesium Level 2.1 Total Bilirubin 0.6 Direct Bilirubin 0.00 Indirect Bilirubin 0.6 Aspartate Amino 26 Transf (AST/SGOT) Alanine 16 Aminotransferase (A LT/SGPT) Alkaline 75 Phosphatase Creatine Kinase 156 Total Protein 7.1 # Albumin 3.8 Globulin 3.30 H Albumin/Globulin 1.15 Ratio Triglycerides Level 200 H Cholesterol Level 145 LDL Cholesterol, 77 Calculated HDL Cholesterol 28 L Cholesterol/HDL 5.1 Ratio Lab Scanned Report BLOOD TRANSFUSION Exam/Review of Systems Exam Vitals Vital Signs Date Temp Pulse Resp B/P (MAP) Pulse Ox O2 O2 Flow FiO2 Time Delivery Rate 5/2/19 79 08:00 09/30/18 98.3 20 166/75 95 Room Air 07:17 (105) Intake and Output 09/29/18 09/29/18 09/30/18 1515:00 23:00 07:00 IntakeIntake Total 720 ml 2900 ml OutputOutput Total 200 ml 4850 ml BalanceBalance -200 ml -4130 ml 2900 ml Results Results 24hrs Laboratory Tests Test 09/29/18 16:52 09/29/18 22:14 09/30/18 06:10 09/30/18 08:24 Hemoglobin 9.8 #L 10.8 L 10.4 L Hematocrit 28.1 #L 31.3 L 30.0 L White Blood Count 7.0 Red Blood Count 3.31 #L Mean Corpuscular 90.6 Volume Mean Corpuscular 31.4 Hemoglobin Mean Corpuscular 34.7 Hemoglobin Concent Red Cell 15.4 H Distribution Width Platelet Count 131 #L Mean Platelet 11.3 H Volume Immature 0.000 L Granulocytes % Neutrophils % 62.6 Lymphocytes % 15.8 Monocytes % 10.0 Eosinophils % 11.0 H Basophils % 0.6 Nucleated Red Blood 0.0 Cells % Immature 0.000 Granulocytes # Neutrophils # 4.4 Lymphocytes # 1.1 Monocytes # 0.7 Eosinophils # 0.8 H Basophils # 0.0 Nucleated Red Blood 0.0 Cells # Sodium Level 141 Potassium Level 4.7 Chloride Level 98 Carbon Dioxide 31 Level Anion Gap 12 Blood Urea Nitrogen 31 #H Creatinine 6.53 H Est Glomerular 9 L Filtrat Rate mL/min Glucose Level 85 Calcium Level 9.0 Phosphorus Level 5.1 H Magnesium Level 2.1 Total Bilirubin 0.6 Direct Bilirubin 0.00 Indirect Bilirubin 0.6 Aspartate Amino 26 Transf (AST/SGOT) Alanine 16 Aminotransferase (A LT/SGPT) Alkaline 75 Phosphatase Creatine Kinase 156 Total Protein 7.1 # Albumin 3.8 Globulin 3.30 H Albumin/Globulin 1.15 Ratio Triglycerides Level 200 H Cholesterol Level 145 LDL Cholesterol, 77 Calculated HDL Cholesterol 28 L Cholesterol/HDL 5.1 Ratio Lab Scanned Report BLOOD TRANSFUSION Medications Medication Current Medications Albuterol (Ventolin Hfa) 2 puff Q4H INH Last administered on 09/30/18at 08:39; Admin Dose 2 PUFF; Start 09/28/18 at 21:00 Nifedipine (Procardia Xl) 30 mg DAILY PO Last administered on 09/30/18 08:39; Admin Dose 30 MG; Start 09/29/18 at 09:00 Carvedilol (Coreg) 25 mg BID PO Last administered on 09/30/18at 08:39; Admin Dose 25 MG; Start 09/28/18 at 21:00 IV Flush (NS 3 ml) 3 ml PER PROTOCOL IV ; Start 09/28/18 at 21:00 Ondansetron HCl (Zofran Inj) 4 mg Q6H PRN IV NAUSEA/VOMITING; Start 09/28/18 at 21:00 Acetaminophen (Tylenol Tab) 650 mg Q6H PRN PO .PAIN 1-3 OR TEMP; Start 09/28/18 at 21:00 Morphine Sulfate (morphine) 2 mg Q4H PRN IV .PAIN 7-10; Start 09/28/18 at 21:00 Docusate Sodium (Colace) 100 mg Q12H PRN PO .CONSTIPATION; Start 09/28/18 at 21:00 Bisacodyl (Dulcolax) 5 mg DAILY PRN PO .CONSTIPATION; Start 09/28/18 at 21:00 Atorvastatin Calcium (Lipitor) 40 mg HS PO Last administered on 09/29/18at 21:31; Admin Dose 40 MG; Start 09/29/18 at 21:00 Heparin Sodium (Porcine) (Heparin (1000 Units/ml)) 4,800 unit AFTER DIALYSIS CATHETER Last administered on 09/29/18at 16:44; Admin Dose 4,800 UNIT; Start 09/29/18 at 13:30 Hydralazine HCl (Apresoline) 10 mg Q4H PRN IV ELEVATED BLOOD PRESSURE Last administered on 09/29/18at 23:37; Admin Dose 10 MG; Start 09/29/18 at 22:00 ARNALDO MONROE NP September 30, 2018 10:30
--- NOTE | 2018-09-30 12:08 | PREAC ---
Date/Time of Note Date/Time of Note DATE: 09/30/18 TIME: 12:04 Anesthesia Eval and Record Evaluation Time Pre-Procedure Interview DATE: 09/30/18 TIME: 12:04 Age 67 Sex male NPO: 8 hrs Preoperative diagnosis GI bleed Planned procedure EGD/Colonoscopy Past Medical History Past Medical History: Includes (gout) Cardio: HTN, Dyslipidemia, [place], CAD, CHF Renal: ESRD on dialysis (dialysis yesterday) Heme: Anemia Surgery & Anesthesia Issues No known issue (stent placement) Meds Anticoagulation: Yes (heparin 4800 units yesterday 09/29 @1644) Beta Maribeth within 24 hr: Yes Active Scripts Aspirin* (Aspirin* EC) 81 Mg Tablet.dr, 81 MG PO DAILY, #30 TAB Prov:CHRISTEN CLARK V. [employer] 08/26/18 Clopidogrel Bisulfate (Clopidogrel) 75 Mg Tablet, 75 MG PO DAILY, #30 TAB Prov:CHRISTEN CLARK V. [employer] 08/26/18 Reported Medications Carvedilol* (Carvedilol*) 25 Mg Tablet, 25 MG PO BID, #60 TAB 09/28/18 Cholecalciferol (Vitamin D3) 5,000 Unit Tablet, 5000 UNIT PO DAILY, TAB 08/23/18 Nifedipine* (Nifedipine ER*) 30 Mg Tablet.sa, 30 MG PO DAILY, TAB.SA 08/23/18 Bumetanide* (Bumetanide*) 1 Mg Tablet, 1 MG PO DAILY, TAB 08/23/18 Albuterol Sulfate* (Ventolin HFA*) 18 Gm Hfa.aer.ad, 2 PUFF INHALATION Q4H, #1 INHALER 08/23/18 Discontinued Reported Medications Atorvastatin* (Atorvastatin*) 80 Mg Tablet, 80 MG PO QHS, #30 TAB 08/23/18 Losartan Potassium* (Losartan Potassium*) 50 Mg Tablet, 50 MG PO DAILY, TAB 08/23/18 Discontinued Scripts Carvedilol* (Carvedilol*) 12.5 Mg Tablet, 25 MG PO BID, #60 TAB Prov:CHRISTEN CLARK V. [employer] 08/26/18 Current Medications Albuterol (Ventolin Hfa) 2 puff Q4H INH Last administered on 09/30/18at 08:39; Admin Dose 2 PUFF; Start 09/28/18 at 21:00 Nifedipine (Procardia Xl) 30 mg DAILY PO Last administered on 09/30/18at 08:39; Admin Dose 30 MG; Start 09/29/18 at 09:00 Carvedilol (Coreg) 25 mg BID PO Last administered on 09/30/18at 08:39; Admin Dose 25 MG; Start 09/28/18 at 21:00 IV Flush (NS 3 ml) 3 ml PER PROTOCOL IV ; Start 09/28/18 at 21:00 Ondansetron HCl (Zofran Inj) 4 mg Q6H PRN IV NAUSEA/VOMITING; Start 09/28/18 at 21:00 Acetaminophen (Tylenol Tab) 650 mg Q6H PRN PO .PAIN 1-3 OR TEMP; Start 09/28/18 at 21:00 Morphine Sulfate (morphine) 2 mg Q4H PRN IV .PAIN 7-10; Start 09/28/18 at 21:00 Docusate Sodium (Colace) 100 mg Q12H PRN PO .CONSTIPATION; Start 09/28/18 at 21:00 Bisacodyl (Dulcolax) 5 mg DAILY PRN PO .CONSTIPATION; Start 09/28/18 at 21:00 Atorvastatin Calcium (Lipitor) 40 mg HS PO Last administered on 09/29/18at 21:31; Admin Dose 40 MG; Start 09/29/18 at 21:00 Heparin Sodium (Porcine) (Heparin (1000 Units/ml)) 4,800 unit AFTER DIALYSIS CATHETER Last administered on 09/29/18at 16:44; Admin Dose 4,800 UNIT; Start 09/29/18 at 13:30 Hydralazine HCl (Apresoline) 10 mg Q4H PRN IV ELEVATED BLOOD PRESSURE Last administered on 09/29/18at 23:37; Admin Dose 10 MG; Start 09/29/18 at 22:00 Meds reviewed: Yes Allergies Coded Allergies: No Known Allergies (Verified Allergy, Unknown, 09/28/18) Allergies Reviewed: Yes Labs/Studies Labs Reviewed: Reviewed by anesthesiologist Result Diagram: 09/30/18 0610 09/30/18 0610 Laboratory Tests 09/30/18 06:10 test: N/A Studies: 2D Echo, Other ( Partially visualized focal consolidation in the lingula. Scattered atelectasis in the remainder of the visualized lungs. Heart size within normal limits. Coronary artery calcifications. Trace pericardial effusion.) Pre-procedure Exam Last vitals Vital Signs Date Temp Pulse Resp B/P (MAP) Pulse Ox O2 O2 Flow FiO2 Time Delivery Rate 09/30/18 98.6 67 20 147/67 94 Room Air 11:29 (93) Airway: Adequate mouth opening, Adequate thyromental dist Mallampati: Mallampati II Teeth: Abnormal (dentures upper and lower in place ; few permanent teeth remain) Lung: Normal Heart: Normal ASA Physical Status ASA physical status: 3 Emergency: None Planned Anesthetic General/MAC: MAC Pre-operative Attestations Prior to commencing anesthesia and surgery, the patient was re-evaluated, there was verification of: *The patient's identity *The results of appropriate recent lab work and preoperative vital signs *The above evaluation not changing prior to induction *Anesthetic plan, risk benefits, alternative and complications discussed with patient/family; questions answered; patient/family understands, accepts and wishes to proceed. Rumper used EARLINE FISH September 30, 2018 12:08
[2018-09-30] MEDS ORDERED: FENTAnyl 50 MCG/ML VIAL ONE (15:18)
[2018-09-30] MEDS ORDERED: PROPOFOL 40 ML ONE (15:18)
[2018-09-30] MEDS ORDERED: LIDOCAINE 2% (SDV) 5 ML INJ ONE (15:18)
--- NOTE | 2018-09-30 15:45 | PAC ---
Date/Time of Note Date/Time of Note DATE: 09/30/18 TIME: 15:45 Post-Anesthesia Notes Post-Anesthesia Note Last documented vital signs Vital Signs Date Temp Pulse Resp B/P (MAP) Pulse Ox O2 O2 Flow FiO2 Time Delivery Rate 09/30/18 98.0 77 18 156/72 97 Room Air 15:08 (100) Activity: WNL Respiratory function: WNL Cardiovascular function: WNL Mental status: Baseline Pain reasonably controlled: Yes Hydration appropriate: Yes Nausea/Vomiting absent: Yes Spike Weller M.D. September 30, 2018 15:45
--- NOTE | 2018-09-30 15:51 | HPN ---
Date/Time of Note Date/Time of Note DATE: 09/30/18 TIME: 15:51 Interval H&P Admission Note Pt. seen H&P reviewed: No system changes TREY ROSARIO September 30, 2018 15:51
--- NOTE | 2018-09-30 17:57 | CONS ---
Assessment/Plan Assessment/Plan Hospital Course (Demo Recall) 1. ESRD , he is due for hemodialysis tomorrow which I have ordered . 2. GI bleeding , he is scheduled for an endoscopy and colonoscopy today . 3. CAD , he denies CP or SOB . Consultation Date/Type/Reason Admit Date/Time Sep 28, 2018 at 19:19 Initial Consult Date 09/29/18 Type of Consult nephrology Requesting Provider: AZALEA TAYLOR Date/Time of Note DATE: 09/30/18 TIME: 17:52 24 HR Interval Summary Free Text/Dictation Patient is feeling better . He denies GIB today . Constitutional: improved Exam/Review of Systems Exam Vitals Vital Signs Date Temp Pulse Resp B/P (MAP) Pulse Ox O2 O2 Flow FiO2 Time Delivery Rate 09/30/18 97.8 79 20 142/65 94 Room Air 16:59 (90) Intake and Output 09/29/18 09/29/18 09/30/18 1414:59 22:59 06:59 IntakeIntake Total 720 ml 2900 ml OutputOutput Total 200 ml 4850 ml BalanceBalance -200 ml -4130 ml 2900 ml Constitutional: alert, oriented Respiratory: clear to auscultation Cardiovascular: regular rate and rhythm Gastrointestinal: soft, non-tender Musculoskeletal: nl extremities to inspection Results Result Diagram: 09/30/18 0610 09/30/18 0610 Results 24hrs Laboratory Tests Test 09/29/18 22:14 09/30/18 06:10 09/30/18 08:24 Hemoglobin 10.8 L 10.4 L Hematocrit 31.3 L 30.0 L White Blood Count 7.0 Red Blood Count 3.31 #L Mean Corpuscular Volume 90.6 Mean Corpuscular Hemoglobin 31.4 Mean Corpuscular 34.7 Hemoglobin Concent Red Cell Distribution Width 15.4 H Platelet Count 131 #L Mean Platelet Volume 11.3 H Immature Granulocytes % 0.000 L Neutrophils % 62.6 Lymphocytes % 15.8 Monocytes % 10.0 Eosinophils % 11.0 H Basophils % 0.6 Nucleated Red Blood Cells % 0.0 Immature Granulocytes # 0.000 Neutrophils # 4.4 Lymphocytes # 1.1 Monocytes # 0.7 Eosinophils # 0.8 H Basophils # 0.0 Nucleated Red Blood Cells # 0.0 Sodium Level 141 Potassium Level 4.7 Chloride Level 98 Carbon Dioxide Level 31 Anion Gap 12 Blood Urea Nitrogen 31 #H Creatinine 6.53 H Est Glomerular Filtrat 9 L Rate mL/min Glucose Level 85 Calcium Level 9.0 Phosphorus Level 5.1 H Magnesium Level 2.1 Total Bilirubin 0.6 Direct Bilirubin 0.00 Indirect Bilirubin 0.6 Aspartate Amino Transf (AST/SGOT) 26 Alanine 16 Aminotransferase (ALT/SGPT) Alkaline Phosphatase 75 Creatine Kinase 156 Total Protein 7.1 # Albumin 3.8 Globulin 3.30 H Albumin/Globulin Ratio 1.15 Triglycerides Level 200 H Cholesterol Level 145 LDL Cholesterol, Calculated 77 HDL Cholesterol 28 L Cholesterol/HDL Ratio 5.1 Lab Scanned Report BLOOD TRANSFUSION Medications Medication Current Medications Albuterol (Ventolin Hfa) 2 puff Q4H INH Last administered on 09/30/18at 13:23; Admin Dose 2 PUFF; Start 09/28/18 at 21:00 Nifedipine (Procardia Xl) 30 mg DAILY PO Last administered on 09/30/18at 08:39; Admin Dose 30 MG; Start 09/29/18 at 09:00 Carvedilol (Coreg) 25 mg BID PO Last administered on 09/30/18at 08:39; Admin Dose 25 MG; Start 09/28/18 at 21:00 IV Flush (NS 3 ml) 3 ml PER PROTOCOL IV ; Start 09/28/18 at 21:00 Ondansetron HCl (Zofran Inj) 4 mg Q6H PRN IV NAUSEA/VOMITING; Start 09/28/18 at 21:00 Acetaminophen (Tylenol Tab) 650 mg Q6H PRN PO .PAIN 1-3 OR TEMP; Start 09/28/18 at 21:00 Morphine Sulfate (morphine) 2 mg Q4H PRN IV .PAIN 7-10; Start 09/28/18 at 21:00 Docusate Sodium (Colace) 100 mg Q12H PRN PO .CONSTIPATION; Start 09/28/18 at 21:00 Bisacodyl (Dulcolax) 5 mg DAILY PRN PO .CONSTIPATION; Start 09/28/18 at 21:00 Atorvastatin Calcium (Lipitor) 40 mg HS PO Last administered on 09/29/18at 21:31; Admin Dose 40 MG; Start 09/29/18 at 21:00 Heparin Sodium (Porcine) (Heparin (1000 Units/ml)) 4,800 unit AFTER DIALYSIS CATHETER Last administered on 09/29/18at 16:44; Admin Dose 4,800 UNIT; Start at 13:30 Hydralazine HCl (Apresoline) 10 mg Q4H PRN IV ELEVATED BLOOD PRESSURE Last administered on 09/29/18at 23:37; Admin Dose 10 MG; Start 09/29/18 at 22:00 CHANDLER LIMA MD September 30, 2018 17:57
[2018-09-30] MEDS: ATORVASTATIN 40 MG TAB PO SCH (20:23)
[2018-10-01] VITALS (26 sets, daily range): BP systolic 133–171; BP diastolic 55–77; PULSE 60–74; RESP 16–18
[2018-10-01] MEDS: ALBUTEROL HFA 8 GM INHALER INH SCH ×5 (01:00→16:53)
[2018-10-01] MEDS: NIFEdipine (XL) 30 MG TAB PO SCH (08:31)
--- NOTE | 2018-10-01 14:33 | PN ---
Date/Time of Note Date/Time of Note DATE: 10/01/18 TIME: 14:24 Assessment/Plan VTE Prophylaxis Risk score (from Ns)>0 risk: 5 SCD applied (from Ns): Yes Pharmacological prophylaxis: NA/contraindicated Pharm contraindication: bleeding Lines/Catheters IV [facility]from [facility] Permacath Assessment/Plan Assessment/Plan Assessment: Hematochezia Status post EGD/colonoscopy 09/30/2018 -Irregular Z line -negative for Bey's esophagus -Diverticulosis -Hemorrhoids -Rectosigmoid hyperplastic polyp Thrombocytopenia Acute on chronic anemia ESRD on HD History of recent/July 2018 non-ST elevation myocardial infarction -S/P PCI of the right coronary artery using a drug-eluting stent July [address] Beaver CAD Dyslipidemia HTN Plan: Continue Protonix High-fiber diet Patient appears adequate for outpatient management With no further recommendations GI will sign off. Patient seen in collaboration with Dr. Martínez Subjective: Patient is doing well. He is getting dialysis today. Patient denies abdominal pain, nausea or vomiting. Patient had one bowel movement today, denies hematochezia. Results of EGD/colonoscopy discussed with the patient. Recommend high-fiber diet. Continue Protonix. Patient appears adequate for outpatient management. Exam PHYSICAL EXAMINATION: GENERAL: Alert & oriented x 3, in no acute distress SKIN: No lesions HEAD: Normocephalic, atraumatic, no tenderness. EYES: Pupils equal reactive to light, non-icteric, no discharge. EARS/NOSE AND THROAT: Ears normal, nose normal NECK: Supple, no masses CHEST: Inspection within normal limits. CARDIOVASCULAR: Heart: Regular rate and rhythm RESPIRATORY: Lungs clear to auscultation GASTROINTESTINAL AND LIVER: Abdomen: Soft, non tenderness, non-distended, no hernias, no masses, no organomegaly, no ascites, no guarding, no rebound tenderness, normoactive bowel sounds. Rectal: Deferred. EXTREMITIES: No cyanosis, clubbing or edema. Result Diagram: 10/01/18 0631 10/01/18 0631 Results 24hrs Laboratory Tests Test 10/01/18 06:31 White Blood Count 6.9 Red Blood Count 3.09 L Hemoglobin 9.4 L Hematocrit 28.0 L Mean Corpuscular Volume 90.6 Mean Corpuscular Hemoglobin 30.4 Mean Corpuscular Hemoglobin Concent 33.6 Red Cell Distribution Width 14.6 H Platelet Count 124 L Mean Platelet Volume 11.3 H Immature Granulocytes % 0.300 Neutrophils % 63.4 Lymphocytes % 15.6 Monocytes % 10.2 Eosinophils % 10.1 H Basophils % 0.4 Nucleated Red Blood Cells % 0.0 Immature Granulocytes # 0.020 Neutrophils # 4.3 Lymphocytes # 1.1 Monocytes # 0.7 Eosinophils # 0.7 H Basophils # 0.0 Nucleated Red Blood Cells # 0.0 Sodium Level 138 Potassium Level 4.8 Chloride Level 98 Carbon Dioxide Level 27 Anion Gap 13 Blood Urea Nitrogen 43 #H Creatinine 9.03 #H Est Glomerular Filtrat Rate mL/min 6 L Glucose Level 76 Calcium Level 8.1 L Phosphorus Level 7.7 #H Magnesium Level 2.2 CC: ARINA MARTÍNEZ MD ; Exam/Review of Systems Exam Vitals Vital Signs Date Temp Pulse Resp B/P (MAP) Pulse Ox O2 O2 Flow FiO2 Time Delivery Rate 10/01/18 98.1 66 18 137/63 98 Room Air 12:09 (87) Intake and Output 09/30/18 09/30/18 10/01/18 1515:00 23:00 07:00 IntakeIntake Total 720 ml 100 ml BalanceBalance 720 ml 100 ml Results Results 24hrs Laboratory Tests Test 10/01/18 06:31 White Blood Count 6.9 Red Blood Count 3.09 L Hemoglobin 9.4 L Hematocrit 28.0 L Mean Corpuscular Volume 90.6 Mean Corpuscular Hemoglobin 30.4 Mean Corpuscular Hemoglobin Concent 33.6 Red Cell Distribution Width 14.6 H Platelet Count 124 L Mean Platelet Volume 11.3 H Immature Granulocytes % 0.300 Neutrophils % 63.4 Lymphocytes % 15.6 Monocytes % 10.2 Eosinophils % 10.1 H Basophils % 0.4 Nucleated Red Blood Cells % 0.0 Immature Granulocytes # 0.020 Neutrophils # 4.3 Lymphocytes # 1.1 Monocytes # 0.7 Eosinophils # 0.7 H Basophils # 0.0 Nucleated Red Blood Cells # 0.0 Sodium Level 138 Potassium Level 4.8 Chloride Level 98 Carbon Dioxide Level 27 Anion Gap 13 Blood Urea Nitrogen 43 #H Creatinine 9.03 #H Est Glomerular Filtrat Rate mL/min 6 L Glucose Level 76 Calcium Level 8.1 L Phosphorus Level 7.7 #H Magnesium Level 2.2 Medications Medication Current Medications Albuterol (Ventolin Hfa) 2 puff Q4H INH Last administered on 10/01/18 12:05; Admin Dose 2 PUFF; Start 09/28/18 at 21:00 Nifedipine (Procardia Xl) 30 mg DAILY PO Last administered on 10/01/18 08:31; Admin Dose 30 MG; Start 09/29/18 at 09:00 Carvedilol (Coreg) 25 mg BID PO Last administered on 10/01/18 08:30; Admin Dose 25 MG; Start 09/28/18 at 21:00 IV Flush (NS 3 ml) 3 ml PER PROTOCOL IV ; Start 09/28/18 at 21:00 Ondansetron HCl (Zofran Inj) 4 mg Q6H PRN IV NAUSEA/VOMITING; Start 09/28/18 at 21:00 Acetaminophen (Tylenol Tab) 650 mg Q6H PRN PO .PAIN 1-3 OR TEMP; Start 09/28/18 at 21:00 Morphine Sulfate (morphine) 2 mg Q4H PRN IV .PAIN 7-10; Start 09/28/18 at 21:00 Docusate Sodium (Colace) 100 mg Q12H PRN PO .CONSTIPATION; Start 09/28/18 at 21:00 Bisacodyl (Dulcolax) 5 mg DAILY PRN PO .CONSTIPATION; Start 09/28/18 at 21:00 Atorvastatin Calcium (Lipitor) 40 mg HS PO Last administered on 09/30/18 20:23; Admin Dose 40 MG; Start 09/29/18 at 21:00 Heparin Sodium (Porcine) (Heparin (1000 Units/ml)) 4,800 unit AFTER DIALYSIS CATHETER Last administered on 09/29/18at 16:44; Admin Dose 4,800 UNIT; Start 09/29/18 at 13:30 Hydralazine HCl (Apresoline) 10 mg Q4H PRN IV ELEVATED BLOOD PRESSURE Last administered on 09/29/18at 23:37; Admin Dose 10 MG; Start 09/29/18 at 22:[address] NP October 01, 2018 14:33
--- NOTE | 2018-10-01 15:09 | CONS ---
Consult Date/Type/Reason Admit Date/Time Sep 28, 2018 at 19:19 Initial Consult Date 09/29/18 Type of Consultation: cv Requesting Provider: AZALEA TAYLOR Date/Time of Note DATE: 10/01/18 TIME: 15:08 Subjective Cardiology follow-up progress note Subjective: Discussed with the staff telemetry was reviewed patient remains sinus rhythm. Denies any chest pain or pressure to me Patient denies any more bleeding to me s/p endoscopy 09/30/18 Objective: General: no acute distress HEENT: NC/AT. pupils are equal. round. Chest: Status post hemodialysis access placement in left subclavian area NECK: NO JVD. no stridor. CV: RRR. systolic murmur; no gallop or rubs. PULM: no wheezing or rhonchi. GI: SOFT, NT, ND, no rebound or guarding Extremity: trace B/L LE edema. no clubbing. neuro: awake and alert, OX3. Psych: calm and pleasant rectal: deferred : normal Abdominal CT shows: Partially visualized focal consolidation in the lingula. Small kidneys containing few cysts, compatible with the patient's history of end-stage renal disease. Colonic diverticulosis. Atherosclerotic disease throughout the arterial vasculature and degenerative changes in the spine. Review of the old chart showed echocardiogram done in July 2018 which was personally reviewed showed: Normal left ventricular systolic function. Normal left ventricular cavity size. Moderate concentric left ventricular hypertrophy. Ejection fraction is visually estimated at 65 %. Tissue Doppler/Mitral Doppler indices are consistent with impaired relaxation (Stage I diastolic dysfunction). There is moderate enlargement of left atrium. Mild mitral leaflet calcification. Moderate mitral annular calcification. Trace mitral regurgitation. Normal appearance of the aortic valve. No significant aortic stenosis or insufficiency. Normal appearance of the tricuspid valve. Estimated peak PA systolic pressure 43 mmHg. There is trace tricuspid regurgitation. Objective Vitals Vital Signs Date Temp Pulse Resp B/P (MAP) Pulse Ox O2 O2 Flow FiO2 Time Delivery Rate 10/01/18 98.1 66 18 137/63 98 Room Air 12:09 (87) Intake and Output 09/30/18 09/30/18 10/01/18 1515:00 23:00 07:00 IntakeIntake Total 720 ml 100 ml BalanceBalance 720 ml 100 ml Results/Medications Result Diagram: 10/01/18 0631 10/01/18 0631 Results 24 hrs Laboratory Tests Test 10/01/18 06:31 White Blood Count 6.9 Red Blood Count 3.09 L Hemoglobin 9.4 L Hematocrit 28.0 L Mean Corpuscular Volume 90.6 Mean Corpuscular Hemoglobin 30.4 Mean Corpuscular Hemoglobin Concent 33.6 Red Cell Distribution Width 14.6 H Platelet Count 124 L Mean Platelet Volume 11.3 H Immature Granulocytes % 0.300 Neutrophils % 63.4 Lymphocytes % 15.6 Monocytes % 10.2 Eosinophils % 10.1 H Basophils % 0.4 Nucleated Red Blood Cells % 0.0 Immature Granulocytes # 0.020 Neutrophils # 4.3 Lymphocytes # 1.1 Monocytes # 0.7 Eosinophils # 0.7 H Basophils # 0.0 Nucleated Red Blood Cells # 0.0 Sodium Level 138 Potassium Level 4.8 Chloride Level 98 Carbon Dioxide Level 27 Anion Gap 13 Blood Urea Nitrogen 43 #H Creatinine 9.03 #H Est Glomerular Filtrat Rate mL/min 6 L Glucose Level 76 Calcium Level 8.1 L Phosphorus Level 7.7 #H Magnesium Level 2.2 Home Meds Active Scripts Aspirin* (Aspirin* EC) 81 Mg Tablet.dr, 81 MG PO DAILY, #30 TAB Prov:CHRISTEN CLARK V. PIGMENT SUPPLIER 08/26/18 Clopidogrel Bisulfate (Clopidogrel) 75 Mg Tablet, 75 MG PO DAILY, #30 TAB Prov:CHRISTEN CLARK V. PIGMENT SUPPLIER 08/26/18 Reported Medications Carvedilol* (Carvedilol*) 25 Mg Tablet, 25 MG PO BID, #60 TAB 09/28/18 Cholecalciferol (Vitamin D3) 5,000 Unit Tablet, 5000 UNIT PO DAILY, TAB 08/23/18 Nifedipine* (Nifedipine ER*) 30 Mg Tablet.sa, 30 MG PO DAILY, TAB.SA 08/23/18 Bumetanide* (Bumetanide*) 1 Mg Tablet, 1 MG PO DAILY, TAB 08/23/18 Albuterol Sulfate* (Ventolin HFA*) 18 Gm Hfa.aer.ad, 2 PUFF INHALATION Q4H, #1 INHALER 08/23/18 Discontinued Reported Medications Atorvastatin* (Atorvastatin*) 80 Mg Tablet, 80 MG PO QHS, #30 TAB 08/23/18 Losartan Potassium* (Losartan Potassium*) 50 Mg Tablet, 50 MG PO DAILY, TAB 08/23/18 Discontinued Scripts Carvedilol* (Carvedilol*) 12.5 Mg Tablet, 25 MG PO BID, #60 TAB Prov:CHRISTEN CLARK VMinna PIGMENT SUPPLIER 08/26/18 Medications Current Medications Albuterol (Ventolin Hfa) 2 puff Q4H INH Last administered on 10/01/18 12:05; Admin Dose 2 PUFF; Start 09/28/18 at 21:00 Nifedipine (Procardia Xl) 30 mg DAILY PO Last administered on 10/01/18 08:31; Admin Dose 30 MG; Start 09/29/18 at 09:00 Carvedilol (Coreg) 25 mg BID PO Last administered on 10/01/18 08:30; Admin Dose 25 MG; Start 09/28/18 at 21:00 IV Flush (NS 3 ml) 3 ml PER PROTOCOL IV ; Start 09/28/18 at 21:00 Ondansetron HCl (Zofran Inj) 4 mg Q6H PRN IV NAUSEA/VOMITING; Start 09/28/18 at 21:00 Acetaminophen (Tylenol Tab) 650 mg Q6H PRN PO .PAIN 1-3 OR TEMP; Start 09/28/18 at 21:00 Morphine Sulfate (morphine) 2 mg Q4H PRN IV .PAIN 7-10; Start 09/28/18 at 21:00 Docusate Sodium (Colace) 100 mg Q12H PRN PO .CONSTIPATION; Start 09/28/18 at 21:00 Bisacodyl (Dulcolax) 5 mg DAILY PRN PO .CONSTIPATION; Start 09/28/18 at 21:00 Atorvastatin Calcium (Lipitor) 40 mg HS PO Last administered on 09/30/18 20:23; Admin Dose 40 MG; Start 09/29/18 at 21:00 Heparin Sodium (Porcine) (Heparin (1000 Units/ml)) 4,800 unit AFTER DIALYSIS CATHETER Last administered on 09/29/18 16:44; Admin Dose 4,800 UNIT; Start 09/29/18 at 13:30 Hydralazine HCl (Apresoline) 10 mg Q4H PRN IV ELEVATED BLOOD PRESSURE Last administered on 09/29/18at 23:37; Admin Dose 10 MG; Start 09/29/18 at 22:00 Assessment/Plan Hospital Course (Demo Recall) 1. GI bleed/rectal bleed 2. Severe anemia requiring transfusion 3. History of recent/July 2018 non-ST elevation myocardial infarction 4. Status post PCI of the right coronary artery using a drug-eluting stent on August 24, 2018 5. Renal failure on dialysis 6. Hypertension 7. Dyslipidemia 8. Cardiovascular preop evaluation for EGD Recommendation: Aspirin and Plavix is on hold currently due to concern about active bleeding. START ASA/ PLAVIX as soon as possible Continue with the Coreg Continue with statin We will continue to monitor on telemetry. Hemodialysis as per renal. Transfusion as needed. Will defer to primary team follow up with me in 1-2 weeks Thank you for his referral. We will continue to follow along with you. SOUTH AMAYA MD [facility] SOUTH AMAYA MD October 01, 2018 15:09
[2018-10-01] MEDS ORDERED: CLOPIDOGREL 75 MG TAB PO SCH (15:30)
[2018-10-01] MEDS ORDERED: ASPIRIN (EC) 81 MG TAB PO SCH (15:30)
[2018-10-01] MEDS ORDERED: PANT40TA3 PO (15:30)
--- NOTE | 2018-10-01 15:42 | PDOCDIS ---
Discharge Instructions CONDITION [id number] Patient Condition: [id number] Stable HOME CARE INSTRUCTIONS: [id number] Diet Instructions: [id number] Low Fat /Cholesterol OTHER ORDERS: Other Orders: 1. Resume home medications aspirin and Plavix. Stop taking any Eliquis. 2. Take a low-cholesterol, low potassium diet. 3. Resume activities as tolerated. 4. Follow-up with your hemodialysis clinic as scheduled. 5. Please follow-up with your primary care physician in 2 weeks. 6. Please go to the nearest emergency room if you have any chest pain, blood in stool, blood in vomit, or any other unusual signs/symptoms. ARNALDO MONROE NP October 01, 2018 15:41
--- NOTE | 2018-10-01 15:48 | DS ---
Date/Time of Note Date/Time of Note DATE: 10/01/18 TIME: 15:43 Discharge Summary Admission/Discharge Info Admit Date/Time Sep 28, 2018 at 19:19 Discharge Date/Time Discharge Diagnosis 1. Hematochezia. 2. Anemia of acute blood loss. 3. CAD. Status post RCA stenting with a drug-eluting stent on 08/24/2018. 4. Essential hypertension. 5. End-stage renal disease on hemodialysis. 6. Dyslipidemia. Patient Condition: Stable Consults 1. Alex Beaver MD, Cardiology. 2. Jorge L Castano MD, Gastroenterology. 3. Ricco Encinas MD, Nephrology. Procedures Colonoscopy on 09/30/2018 Impression 1. Diverticulosis. 2. Internal hemorrhoids. 3. Rectosigmoid polyps. Esophagogastroduodenoscopy on 09/30/2018 Impression 1. No hiatal hernia. 2. Irregular Z line, rule out Bey's esophagus, short segment. Hx of Present Illness This is a 67-year-old male with comorbidities including end-stage renal disease on hemodialysis, CAD status post stenting to the RCA on 08/24/2018, hypertension, pulmonary hypertension (PA systolic pressure 43 mmHg), and anemia. The patient came to the emergency room with chief complaint of hematochezia with underlying anemia (hemoglobin 6.2). The patient was admitted to inpatient setting for further treatment and evaluation. Hospital Course The patient was transfused with 4 units of PRBC with improvement the patient's H&H. A gastroenterology consult was obtained. The patient underwent an esophagogastroduodenoscopy on 09/30/2018 that was negative for any acute bleeding. However, the EGDscopy showed irregular Z line. Therefore, foxer recommended to continue the patient on proton pump inhibitors. The patient underwent a colonoscopy also on the same day that was showing no evidence of any acute bleeding other than diverticulosis, internal hemorrhoids, and rectosigmoid polyps. Pathology from the polyps are negative for any malignancy. Gastroenterology recommended to resume the patient on aspirin and Plavix since the patient recently had a drug-eluting stent placed to RCA on 08/24/2018. The e tiology of the patient's hematochezia could have been probably secondary to the patient taking Eliquis along with dual antiplatelet therapy inadvertently. The patient was as reinforced not to take any Eliquis to avoid further bleeding episodes. As mentioned earlier, the patient had a recent RCA stent on 08/24/2018. The patient's vice president quality was following the patient throughout the hospital course. Once cleared by gastroenterology, the patient was resumed on dual antiplatelet therapy. Meanwhile, the patient was maintained on his cardiac medications including statins. The patient has underlying essential hypertension. The patient was maintained on antihypertensives for the same. He is an end-stage renal disease patient and he was being followed by nephrology and hemodialysis was done on the schedule days. The patient has underlying dyslipidemia. He was maintained on statins for the same. The patient had a stable hospital course. The patient was cleared by consultants to be discharged home. Discharge Instructions 1. Resume home medications including aspirin and Plavix. Stop taking any Eliquis. 2. Take a low-cholesterol, low potassium diet. 3. Resume activities as tolerated. 4. Follow-up with your hemodialysis clinic as scheduled. 5. Please follow-up with your primary care physician in 2 weeks. 6. Please go to the nearest emergency room if you have any chest pain, blood in stool, blood in vomit, or any other unusual signs/symptoms. The patient verbalized understanding of his discharge instructions. At this time I would like to thank all the consultants for seeing the patient, doing the necessary procedures, and providing clinical recommendations. The patient was seen in collaboration with Dr. Flanagan. Home Meds Active Scripts Aspirin* (Aspirin* EC) 81 Mg Tablet., 81 MG PO DAILY, #30 TAB Prov:CHRISTEN CLARK V. [employer] PERSON 08/26/18 Clopidogrel Bisulfate (Clopidogrel) 75 Mg Tablet, 75 MG PO DAILY, #30 TAB Prov:CHRISTEN CLARK V. [employer] PERSON 08/26/18 Reported Medications Carvedilol* (Carvedilol*) 25 Mg Tablet, 25 MG PO BID, #60 TAB 09/28/18 Cholecalciferol (Vitamin D3) 5,000 Unit Tablet, 5000 UNIT PO DAILY, TAB 08/23/18 Nifedipine* (Nifedipine ER*) 30 Mg Tablet.sa, 30 MG PO DAILY, TAB.SA 08/23/18 Bumetanide* (Bumetanide*) 1 Mg Tablet, 1 MG PO DAILY, TAB 08/23/18 Albuterol Sulfate* (Ventolin HFA*) 18 Gm Hfa.aer.ad, 2 PUFF INHALATION Q4H, #1 INHALER 08/23/18 Discontinued Reported Medications Atorvastatin* (Atorvastatin*) 80 Mg Tablet, 80 MG PO QHS, #30 TAB 08/23/18 Losartan Potassium* (Losartan Potassium*) 50 Mg Tablet, 50 MG PO DAILY, TAB 08/23/18 Discontinued Scripts Carvedilol* (Carvedilol*) 12.5 Mg Tablet, 25 MG PO BID, #60 TAB Prov:CHRISTEN CLARK V. [employer] PERSON 08/26/18 Follow-up Plan Follow-up with your primary care physician 1 to 2 weeks. Primary Care Provider Care Physician No Primary Time spent on discharge: > 30 minutes Pending Labs Laboratory Tests Test 10/01/18 06:31 White Blood Count 6.9 10^3/ul (4.8-10.8) Red Blood Count 3.09 10^6/ul (4.70-6.10) Hemoglobin 9.4 g/dl (14.0-18.0) Hematocrit 28.0 % (42.0-52.0) Mean Corpuscular Volume 90.6 fl (82.0-101.0) Mean Corpuscular Hemoglobin 30.4 pg (29.0-33.0) Mean Corpuscular Hemoglobin Concent 33.6 g/dl (32.0-37.0) Red Cell Distribution Width 14.6 % (11.5-14.5) Platelet Count 124 10^3/UL (140-415) Mean Platelet Volume 11.3 fl (7.4-10.4) Immature Granulocytes % 0.300 % (0.001-0.429) Neutrophils % 63.4 % (39.0-77.0) Lymphocytes % 15.6 % (15.0-51.0) Monocytes % 10.2 % (0.0-11.0) Eosinophils % 10.1 % (0.0-7.0) Basophils % 0.4 % (0.0-2.0) Nucleated Red Blood Cells % 0.0 /100WBC (0.0-0.0) Immature Granulocytes # 0.020 10^3/ul (0.0-0.031) Neutrophils # 4.3 10^3/ul (1.6-7.5) Lymphocytes # 1.1 10^3/ul (0.8-2.9) Monocytes # 0.7 10^3/ul (0.3-0.9) Eosinophils # 0.7 10^3/ul (0.0-0.5) Basophils # 0.0 10^3/ul (0.0-0.1) Nucleated Red Blood Cells # 0.0 10^3/ul (0.0-0.0) Sodium Level 138 mmol/L (135-144) Potassium Level 4.8 mmol/L (3.5-5.1) Chloride Level 98 mmol/L (97-110) Carbon Dioxide Level 27 mmol/L (21-31) Anion Gap 13 (5-13) Blood Urea Nitrogen 43 mg/dl (7-20) Creatinine 9.03 mg/dl (0.61-1.24) Est Glomerular Filtrat Rate mL/min 6 mL/min (>60) Glucose Level 76 mg/dl (70-220) Calcium Level 8.1 mg/dl (8.4-10.2) Phosphorus Level 7.7 mg/dl (2.5-4.9) Magnesium Level 2.2 mg/dl (1.7-2.5) ARNALDO MONROE NP October 01, 2018 15:48
[2018-10-01] MEDS ORDERED: ATOR-2 PO (15:54)
--- NOTE | 2018-10-01 17:06 | CONS ---
Assessment/Plan Assessment/Plan Hospital Course (Demo Recall) 1. ESRD , he is due for hemodialysis today which I have ordered . 2. GI bleeding , he had a UGD and colonoscopy . He denies bleeding now . 3. CAD , he denies CP or SOB . 4. S/P acute NV in July 2018 . He had a PCI to R Coronary with drug eluting stent . Consultation Date/Type/Reason Admit Date/Time Sep 28, 2018 at 19:19 Initial Consult Date 09/29/18 Type of Consult nephrology Requesting Provider: AZALEA TAYLOR Date/Time of Note DATE: 10/01/18 TIME: 17:02 24 HR Interval Summary Free Text/Dictation He is awake and alert . He denies CP or GI bleeding . Constitutional: no complaints, improved Exam/Review of Systems Exam Vitals Vital Signs Date Temp Pulse Resp B/P (MAP) Pulse Ox O2 O2 Flow FiO2 Time Delivery Rate 10/01/18 61 16:16 10/01/18 18 139/61 95 Room Air 15:10 (87) 10/01/18 98.1 12:09 Intake and Output 09/30/18 09/30/18 10/01/18 1515:00 23:00 07:00 IntakeIntake Total 720 ml 100 ml BalanceBalance 720 ml 100 ml Constitutional: alert, oriented, frail Respiratory: clear to auscultation, normal air movement Cardiovascular: regular rate and rhythm Gastrointestinal: soft, non-tender Musculoskeletal: nl extremities to inspection Results Result Diagram: 10/01/18 0631 10/01/18 0631 Results 24hrs Laboratory Tests Test 10/01/18 06:31 White Blood Count 6.9 Red Blood Count 3.09 L Hemoglobin 9.4 L Hematocrit 28.0 L Mean Corpuscular Volume 90.6 Mean Corpuscular Hemoglobin 30.4 Mean Corpuscular Hemoglobin Concent 33.6 Red Cell Distribution Width 14.6 H Platelet Count 124 L Mean Platelet Volume 11.3 H Immature Granulocytes % 0.300 Neutrophils % 63.4 Lymphocytes % 15.6 Monocytes % 10.2 Eosinophils % 10.1 H Basophils % 0.4 Nucleated Red Blood Cells % 0.0 Immature Granulocytes # 0.020 Neutrophils # 4.3 Lymphocytes # 1.1 Monocytes # 0.7 Eosinophils # 0.7 H Basophils # 0.0 Nucleated Red Blood Cells # 0.0 Sodium Level 138 Potassium Level 4.8 Chloride Level 98 Carbon Dioxide Level 27 Anion Gap 13 Blood Urea Nitrogen 43 #H Creatinine 9.03 #H Est Glomerular Filtrat Rate mL/min 6 L Glucose Level 76 Calcium Level 8.1 L Phosphorus Level 7.7 #H Magnesium Level 2.2 Medications Medication Current Medications Albuterol (Ventolin Hfa) 2 puff Q4H INH Last administered on 10/01/18 16:53; Admin Dose 2 PUFF; Start 09/28/18 at 21:00 Nifedipine (Procardia Xl) 30 mg DAILY PO Last administered on 10/01/18 08:31; Admin Dose 30 MG; Start 09/29/18 at 09:00 Carvedilol (Coreg) 25 mg BID PO Last administered on 10/01/18 08:30; Admin Dose 25 MG; Start 09/28/18 at 21:00 IV Flush (NS 3 ml) 3 ml PER PROTOCOL IV ; Start 09/28/18 at 21:00 Ondansetron HCl (Zofran Inj) 4 mg Q6H PRN IV NAUSEA/VOMITING; Start 09/28/18 at 21:00 Acetaminophen (Tylenol Tab) 650 mg Q6H PRN PO .PAIN 1-3 OR TEMP; Start 09/28/18 at 21:00 Morphine Sulfate (morphine) 2 mg Q4H PRN IV .PAIN 7-10; Start 09/28/18 at 21:00 Docusate Sodium (Colace) 100 mg Q12H PRN PO .CONSTIPATION; Start 09/28/18 at 21:00 Bisacodyl (Dulcolax) 5 mg DAILY PRN PO .CONSTIPATION; Start 09/28/18 at 21:00 Heparin Sodium (Porcine) (Heparin (1000 Units/ml)) 4,800 unit AFTER DIALYSIS CATHETER Last administered on 09/29/18at 16:44; Admin Dose 4,800 UNIT; Start 09/29/18 at 13:30 Hydralazine HCl (Apresoline) 10 mg Q4H PRN IV ELEVATED BLOOD PRESSURE Last administered on 09/29/18at 23:37; Admin Dose 10 MG; Start 09/29/18 at 22:00 Atorvastatin Calcium (Lipitor) 80 mg HS PO ; Start 10/01/18 at 21:00 Clopidogrel Bisulfate (plaVIX) 75 mg DAILY PO Last administered on 5/3/19at 16:52; Admin Dose 75 MG; Start 10/01/18 at 15:30 Aspirin (Halfprin) 81 mg DAILY PO Last administered on 10/01/18at 16:52; Admin D ose 81 MG; Start 10/01/18 at 15:30 CHANDLER LIMA MD October 01, 2018 17:06
[2018-10-01] MEDS: HEPARIN 1000 UNITS/ML 10 ML INJ CATHETER SCH (18:07)
[2018-10-01] MEDS ORDERED: ATORVASTATIN 80 MG TAB PO SCH (21:00)
== END 2018-10-01 20:55 | disposition home or self-care (01) | DRG 377 ==
LOC: E/R 13:36 → TEL 19:19
PROVIDERS: ADMIT Family Medicine; ATTEND Family Medicine
PROC: 30233P1 Transfusion of Nonautologous Frozen Red Cells into Peripheral Vein, Percutaneous Approach (ICD-10-PCS; 2018-09-28)
PROC: 5A1D70Z Performance of Urinary Filtration, Intermittent, Less than 6 Hours Per Day (ICD-10-PCS; 2018-09-29)
PROC: 0DBP8ZX Excision of Rectum, Via Natural or Artificial Opening Endoscopic, Diagnostic (ICD-10-PCS; 2018-09-30)
PROC: 0DB98ZX Excision of Duodenum, Via Natural or Artificial Opening Endoscopic, Diagnostic (ICD-10-PCS; principal; 2018-09-30 15:00)
PROC: 0DB48ZX Excision of Esophagogastric Junction, Via Natural or Artificial Opening Endoscopic, Diagnostic (ICD-10-PCS; 2018-09-30 15:00)
DX: K92.1 Melena (principal); N18.6 End stage renal disease; D62 Acute posthemorrhagic anemia; I13.2 Hypertensive heart and chronic kidney disease with heart failure and with stage 5 chronic kidney disease, or end stage renal disease; E11.22 Type 2 diabetes mellitus with diabetic chronic kidney disease; Z99.2 Dependence on renal dialysis; E78.5 Hyperlipidemia, unspecified; D63.1 Anemia in chronic kidney disease; Z95.5 Presence of coronary angioplasty implant and graft; Z79.82 Long term (current) use of aspirin; Z79.02 Long term (current) use of antithrombotics/antiplatelets; Z87.891 Personal history of nicotine dependence; I50.9 Heart failure, unspecified; I25.2 Old myocardial infarction; K64.8 Other hemorrhoids; K62.1 Rectal polyp; K57.90 Diverticulosis of intestine, part unspecified, without perforation or abscess without bleeding; D69.6 Thrombocytopenia, unspecified
CPT/HCPCS: 36415; 36430; 74177; 80048; 80053; 80061; 82550; 83735; 84100; 84484; 85014; 85018; 85025; 85610; 85730; 86850; 86900; 86901; 86920; 87081; 87340; 88305; 88312; 88313; 90935; 93005; J0360; J1644; J3010; J7030; J7040; P9016; Q9967